=== PATIENT | male | born 1960 | race Caucasian/White ===

== ENCOUNTER 2021-02-08 15:29 | Emergency (ER) | payer MEDICARE ==
[2021-02-08] MEDS ORDERED: solu-MEDROL 125 MG IV ONE (15:40)
[2021-02-08] MEDS ORDERED: Lasix 40 MG/4 ML IV ONE (15:40)
[2021-02-08] MEDS ORDERED: solu-MEDROL 125 MG ONE (15:47)
[2021-02-08] MEDS ORDERED: Lasix 40 MG/4 ML ONE (15:47)
[2021-02-08 15:51] LABS: A-aADO2 183; ABG HEMOGLOBIN 10.7; ABG POTASSIUM 4.9 (3.5-5.1); ABG SITE RIGHT BRACHIAL; ALLEN TEST OK? YES; ARTERIAL BLD GAS O2 SATURATION 94.4 % (95-100); ARTERIAL BLOOD GAS BASE EXCESS 3.1 (-2.0-2.0); ARTERIAL BLOOD GAS FIO2 44 %; ARTERIAL BLOOD GAS PCO2 51 mmHg (35-45); ARTERIAL BLOOD GAS PO2 67 mmHg (75-100); ARTERIAL BLOOD GAS pH 7.37 (7.35-7.45); CARBOXYHEMOGLOBIN 2.5 % THgb (0.0-6.9); HCO3- 29.5 (22-28); HGB O2 SAT 90.8 g/dF (94-100); Lactic Acid 0.9 (0.4-2.0); Methhemoglobin 1.4 % (1.4-1.5)
--- NOTE | 2021-02-08 16:02 | ERPHSYRPT ---
- History of Present Illness Time Seen by Provider: 02/08/21 15:35 Source: patient Exam Limitations: no limitations Patient Subjective Stated Complaint: pt reports shortness of breath for one week. states he was sent over from Dr Rodríguez office with a sat of 82% on RA. reports intermittent cough with thick yellow sputum. also reports cold chills but did not check his temp. Triage Nursing Assessment: pt is aox3, pupils perrl, pt short of breath at rest, pt able to speak 1-2 words at a time, tachypneic, pt lung sounds are diminished bilat, cap refill < 3 seconds, radial pulses strong and equal, intermittent cough noted upon exam, pt skin pale warm dry. pt with edema to BLE with compression garments in place. Physician History: This is a morbidly obese 60-year-old white male who is taking Lasix for CHF, is diabetic, and sees Dr. Perez for renal insufficiency issues and presented to Dr. Rodríguez office today for worsening shortness of breath and coughing up of thick yellowish sputum. There, he was found to have a room air oxygenation level of 83%. Patient does not use supplemental oxygen. However, he did use oxygen briefly approximately a year ago when he was diagnosed with COVID-19 infection. Patient denies chest pain. He has not had fevers but has had intermittent chills in the last week. His shortness of breath is even at rest. He speaking to us in only a few words sentences. Patient does not see a strategic communications specialist or naval designer. Timing/Duration: week(s) (one) Activities at Onset: activity Severity of Dyspnea-Max: moderate Severity of Dyspnea-Current: moderate Possible Cause: occasional episodes Modifying Factors: Improves With: activity, coughing Associated Symptoms: cough, ankle swelling, chills, leg swelling, No chest pain/discomfort, No fever Allergies/Adverse Reactions: No Known Drug Allergies Allergy (Unverified 02/08/21 15:53) Home Medications: Albuterol 8 gm Mdi Hfa [Ventolin Hfa MDI] 90 mcg IH Q4HPRN PRN 02/08/21 [History] Fluticasone Propionate [24 Hour Allergy] 9.9 ml NS BID 02/08/21 [History] Furosemide 80 mg PO TID 02/08/21 [History] Glipizide 10 mg PO BID 02/08/21 [History] Insulin Aspart Prot/Insuln Asp [Novolog Mix 70-30 Flexpen] 30 units SQ BID 02/08/21 [History] Insulin Detemir [Levemir] 60 units SQ BID 02/08/21 [History] Metformin HCl [Glucophage] 1,000 mg PO BID 02/08/21 [History] Simvastatin 80 mg PO DAILY 02/08/21 [History] Sitagliptin Phosphate 50 MG [Januvia 50 MG] 50 mg PO DAILY 02/08/21 [History] Spironolactone 25 mg [Aldactone 25 MG] 25 mg PO UD 02/08/21 [History] Tamsulosin HCl 0.4 mg [Flomax 0.4 MG] 0.4 mg PO HS 02/08/21 [History] Testosterone Cypionate 2 ml IM UD 02/08/21 [History] Verapamil HCl [Verapamil ER] 240 mg PO DAILY 02/08/21 [History] Hx Tetanus, Diphtheria Vaccination/Date Given: Yes Hx Influenza Vaccination/Date Given: Yes Hx Pneumococcal Vaccination/Date Given: No Immunizations Up to Date: Yes Travel Risk - International Travel Have you traveled outside of the country in past 3 weeks: No - Coronavirus Screening Symptoms: Shortness of Breath Close contact with a COVID-19 positive Pt in past 14-21 Days: No - Review of Systems Constitutional: Chills (Intermittently over the last week) Eyes: No Symptoms Ears, Nose, & Throat: No Symptoms Respiratory: Cough, Dyspnea on Exertion (JUNIOR) Cardiac: No Symptoms Abdominal/Gastrointestinal: No Symptoms Genitourinary Symptoms: No Symptoms Musculoskeletal: No Symptoms Skin: No Symptoms Neurological: No Symptoms Psychological: No Symptoms Endocrine: No Symptoms Hematologic/Lymphatic: No Symptoms Immunological/Allergic: No Symptoms All Other Systems: Reviewed and Negative - Past Medical History Neurological History: No Pertinent History Cardiac History: No Pertinent History Respiratory History: No Pertinent History Endocrine Medical History: Diabetes Type II Musculoskeletal History: Osteoarthritis Other Medical History: CHARCOT-HIPOLITO TOOTH; TYPE II IDDM - Past Surgical History Past Surgical History: Yes Musculoskeletal: Other Other Surgical History: foot ulcer operated on "years" ago - Social History Smoking Status: Former smoker Exposure to second hand smoke: No Patient Lives Alone: No - Nursing Vital Signs Nursing Vital Signs: Initial Vital Signs Temperature 97.5 F 02/08/21 15:30 Pulse Rate 87 02/08/21 15:30 Respiratory Rate 30 H 02/08/21 15:30 Blood Pressure 154/93 02/08/21 15:30 O2 Sat by Pulse Oximetry 77 L 02/08/21 15:30 Pain Scale Pain Intensity 0 - Physical Exam General Appearance: mild distress, alert, anxiety, obese Eye Exam: PERRL/EOMI, eyes nml inspection Ears, Nose, Throat Exam: hearing grossly normal, normal ENT inspection, normal pharynx Neck Exam: normal inspection, non-tender, supple, full range of motion Respiratory Exam: respiratory distress (Mild to moderate), airway intact, crackles/rales, No chest tenderness Cardiovascular/Chest Exam: normal heart sounds, regular rate/rhythm, normal peripheral pulses Abdominal/Gastrointestinal Exam: soft, normal bowel sounds, No tenderness Rectal Exam: not done Extremity Exam: normal range of motion, pedal edema (Her lower extremities with obvious signs of chronic venous stasis disease. Patient has bilateral lower extremity ABDELRAHMAN hose in place) Neurologic Exam: alert, oriented x 3, cooperative, compliance professional II-XII nml as tested, normal mood/affect, nml cerebellar function, nml station & gait Skin Exam: warm, dry, other (Chronic venous stasis pigmentation bilateral lower extremities below the knees) Lymphatic Exam: No adenopathy SpO2 Interpretation: hypoxic SpO2: 77 O2 Delivery: Room Air - Course Nursing assessment & vital signs reviewed: Yes EKG Interpreted by Me: RATE (94), Sinus Rhythm, NORMAL AXIS, NORMAL INTERVALS, NORMAL QRS, Non-specific ST Changes, Other (No acute ischemic changes on today's EKG. No comparison EKG available at this time.) Ordered Tests: Active Orders 24 hr Category Date Time Status EKG-ER Only STAT Care 02/08/21 15:40 Active IV Insertion STAT Care 02/08/21 15:40 Active Oxygen-ED Only Nasal Cannula 6 lpm Care 02/08/21 16:39 Active Pulse Oximetry (ED) STAT Care 02/08/21 15:40 Active CHEST 1 VIEW (PORTABLE) Stat Exams 02/08/21 15:41 Completed ARTERIAL BLOOD GASES Stat Lab 02/08/21 15:40 Completed BLOOD CULTURE Stat Lab 02/08/21 16:34 Received CBC W DIFF Stat Lab 02/08/21 15:40 Completed CMP Stat Lab 02/08/21 15:40 Completed CULTURE,SPUTUM Stat Lab 02/08/21 15:41 Ordered D-DIMER QUANTITATIVE Stat Lab 02/08/21 15:40 Completed INFLUENZA A+B RUT Stat Lab 02/08/21 15:41 Completed Lactic Acid Stat Lab 02/08/21 15:40 Completed MAGNESIUM Stat Lab 02/08/21 15:40 Completed Manual Differential NC Stat Lab 02/08/21 15:40 Completed NT PRO BNP Stat Lab 02/08/21 15:40 Completed PROTIME WITH INR Stat Lab 02/08/21 15:40 Completed TROPONIN Q3H Lab 02/08/21 17:00 Completed TROPONIN Q3H Lab 02/08/21 20:00 Ordered TROPONIN Q3H Lab 02/08/21 23:00 Ordered TROPONIN Q3H Lab 02/09/21 02:00 Ordered TROPONIN Q3H Lab 02/09/21 05:00 Ordered Respiratory MDI UD RT 02/08/21 16:49 Active Respiratory Therapy Assessment DAILY RT 02/08/21 16:46 Active Medication Summary Generic Name Dose Route Start Last Admin Trade Name Freq PRN Reason Stop Dose Admin Albuterol Sulfate 4 puff 02/08/21 16:24 02/08/21 16:46 Ventolin Common Canister IH 4 puff Q4H PRN PRN Administration SHORTNESS OF BREATH/WHEEZING Discontinued Medications Generic Name Dose Route Start Last Admin Trade Name Freq PRN Reason Stop Dose Admin Enoxaparin Sodium 120 mg 02/08/21 17:14 02/08/21 17:21 Enoxaparin Sodium SQ 02/08/21 17:15 120 mg STAT STA Administration Enoxaparin Sodium Confirm 02/08/21 17:20 Enoxaparin Sodium Administered 02/08/21 17:21 Dose 120 mg SQ .STK-MED ONE Furosemide 40 mg 02/08/21 15:40 02/08/21 15:49 Lasix 40 Mg/4 Ml IV 02/08/21 15:41 40 mg STAT ONE Administration Furosemide Confirm 02/08/21 15:47 Lasix 40 Mg/4 Ml Administered 02/08/21 15:48 Dose 40 mg .ROUTE .STK-MED ONE Ceftriaxone Sodium/Dextrose 1 g in 50 mls @ 100 mls/hr 02/08/21 16:48 02/08/21 17:22 Rocephin 1 Gm-D5w 50 Ml Bag IV 02/08/21 17:17 100 ml/hr STAT STA 100 mls/hr Administration Ceftriaxone Sodium/Dextrose Confirm 02/08/21 16:53 Rocephin 1 Gm-D5w 50 Ml Bag Administered 02/08/21 16:54 Dose 1 g in 50 mls @ ud IV .STK-MED ONE Methylprednisolone Sodium Succinate 125 mg 02/08/21 15:40 02/08/21 15:49 Solu-Medrol 125 Mg IV 02/08/21 15:41 125 mg STAT ONE Administration Methylprednisolone Sodium Succinate Confirm 02/08/21 15:47 Solu-Medrol 125 Mg Administered 02/08/21 15:48 Dose 125 mg .ROUTE .STK-MED ONE Lab/Rad Data: Laboratory Result Diagrams 02/08/21 15:40 02/08/21 15:40 Laboratory Results 02/08/21 02/08/21 02/08/21 Range/Units 17:00 15:41 15:40 WBC (4.0-10.5) K/mm3 RBC (4.1-5.6) M/mm3 Hgb (12.5-18.0) gm/dl Hct (42-50) % MCV (78-100) fl MCH (26-32) pg MCHC (32-36) g/dl RDW (11.5-14.0) % Plt Count (150-450) K/mm3 MPV (7.5-11.0) fl PT 12.9 H (8.83-12.87) SECONDS INR 1.14 (0.8-3.0) D-Dimer 1441 H* (215-500) ng/mL Puncture Site pCO2 (35-45) mmHg pO2 (75-100) mmHg Base Excess (-2.0-2.0) O2 Saturation (94-100) g/dF ABG pH (7.35-7.45) ABG HCO3 (22-28) ABG O2 Sat (Measured) (95-100) % Remy Test A-a Gradient a/A Ratio Hemoglobin Carboxyhemoglobin (0.0-6.9) % THgb Methemoglobin (1.4-1.5) % Potassium (3.5-5.1) Temperature C POC O2 Flow Rate % Sodium (137-145) mmol/L Chloride (98-107) mmol/L Carbon Dioxide (22-30) mmol/L Anion Gap (5-15) MEQ/L BUN (9-20) mg/dL Creatinine (0.66-1.25) mg/dL Estimated GFR ML/MIN Glucose (74-106) mg/dL Lactic Acid (0.4-2.0) Calcium (8.4-10.2) mg/dL Magnesium (1.6-2.3) mg/dL Total Bilirubin (0.2-1.3) mg/dL AST (17-59) U/L ALT (0-50) U/L Alkaline Phosphatase (38-126) U/L Troponin I 0.046 H* (0.000-0.034) ng/mL NT-Pro-B Natriuret Pep (0-900) pg/mL Serum Total Protein (6.3-8.2) g/dL Albumin (3.5-5.0) g/dL Influenza Type A Ag NEGATIVE (NEGATIVE) Influenza Type B Ag NEGATIVE (NEGATIVE) 02/08/21 02/08/21 02/08/21 Range/Units 15:40 15:40 15:40 WBC 8.6 (4.0-10.5) K/mm3 RBC 3.84 L (4.1-5.6) M/mm3 Hgb 10.7 L (12.5-18.0) gm/dl Hct 34.9 L (42-50) % MCV 90.9 (78-100) fl MCH 27.9 (26-32) pg MCHC 30.7 L (32-36) g/dl RDW 15.5 H (11.5-14.0) % Plt Count 295 (150-450) K/mm3 MPV 10.5 (7.5-11.0) fl PT (8.83-12.87) SECONDS INR (0.8-3.0) D-Dimer (215-500) ng/mL Puncture Site RIGHT BRACHIAL pCO2 51 H (35-45) mmHg pO2 67 L (75-100) mmHg Base Excess 3.1 H (-2.0-2.0) O2 Saturation 90.8 L (94-100) g/dF ABG pH 7.37 (7.35-7.45) ABG HCO3 29.5 H* (22-28) ABG O2 Sat (Measured) 94.4 L (95-100) % Remy Test YES A-a Gradient 183 a/A Ratio 0.27 Hemoglobin 10.7 Carboxyhemoglobin 2.5 (0.0-6.9) % THgb Methemoglobin 1.4 (1.4-1.5) % Potassium 4.7 4.9 (3.5-5.1) Temperature 37.0 C POC O2 Flow Rate 44 % Sodium 134 L (137-145) mmol/L Chloride 90 L (98-107) mmol/L Carbon Dioxide 30 (22-30) mmol/L Anion Gap 17.9 H (5-15) MEQ/L BUN 90 H (9-20) mg/dL Creatinine 2.52 H (0.66-1.25) mg/dL Estimated GFR 27.9 ML/MIN Glucose 147 H (74-106) mg/dL Lactic Acid 0.9 (0.4-2.0) Calcium 8.9 (8.4-10.2) mg/dL Magnesium 2.5 H (1.6-2.3) mg/dL Total Bilirubin 0.30 (0.2-1.3) mg/dL AST 36 (17-59) U/L ALT 30 (0-50) U/L Alkaline Phosphatase 84 (38-126) U/L Troponin I (0.000-0.034) ng/mL NT-Pro-B Natriuret Pep 607 (0-900) pg/mL Serum Total Protein 8.2 (6.3-8.2) g/dL Albumin 4.2 (3.5-5.0) g/dL Influenza Type A Ag (NEGATIVE) Influenza Type B Ag (NEGATIVE) - Progress Progress: improved, re-examined Air Movement: fair Progress Note: 02/08/21 17:13 Chest x-ray reveals new diffuse airspace disease left greater than right with a small left pleural effusion. 02/08/21 17:57 Medical decision making: This patient has acute kidney insufficiency/failure that is worsening in the last 7 days. He appears to have left-sided airspace disease with pleural effusion present. His D-dimer is elevated as is his troponin and this may be secondary to his worsening kidney function. He was hypoxic as well. I spoke with his basket bottom machine operator, Dr. Perez. We both agree that this patient should be transferred to a facility where he can be evaluated and managed by nephrology, cardiology and pulmonology. I also spoke with [facility] emergency department physician Dr. Contreras and reviewed the patient's work-up results. He accepts the patient in transfer. Blood Culture(s) Obtained: Yes Antibiotics given: Yes Counseled pt/family regarding: lab results, diagnosis, need for follow-up, rad results - Departure Departure Disposition: Transfer Clinical Impression: Acute on chronic renal insufficiency, Hypoxia, Pneumonia, Elevated troponin, Elevated d-dimer Condition: Fair Critical Care Time: Yes Critical Care Time(excluding separately billable procedures): Critical 30-74 mins Referrals: CORINNA SOSA [Primary Care Provider] -
[2021-02-08 16:21] LABS: ALBUMIN 4.2 g/dL (3.5-5.0); ANION GAP 17.9 MEQ/L (5-15); BILIRUBIN,TOTAL 0.3 mg/dL (0.2-1.3); Calcium 8.9 mg/dL (8.4-10.2); Creatinine 1 2.52 mg/dL (0.66-1.25); EST GLOMERULAR FILTRATION RATE 27.9 ML/MIN; MAGNESIUM 2.5 mg/dL (1.6-2.3); Potassium 4.7 mmol/L (3.5-5.1); Total Protein 8.2 g/dL (6.3-8.2)
[2021-02-08 16:22] LABS: INR 1.14 (0.8-3.0); PROTIME 12.9 SECONDS (8.83-12.87)
[2021-02-08] MEDS ORDERED: VENTOLIN COMMON CANISTER IH PRN (16:24)
[2021-02-08 16:25] LABS: INFLUENZA A NEGATIVE (NEGATIVE); INFLUENZA B NEGATIVE (NEGATIVE)
--- NOTE | 2021-02-08 16:35 | XRAY ---
Indication: Cough and hypoxia. Comparison: None Portable chest demonstrates new diffuse airspace disease, left greater than right with small left effusion. Heart is not enlarged. Bony thorax intact.
[2021-02-08] MEDS ORDERED: ROCEPHIN 1 Gm-D5w 50 ml Bag** 1 G/50 ML IVPB IV STA (16:48)
[2021-02-08] MEDS ORDERED: ROCEPHIN 1 Gm-D5w 50 ml Bag** 1 G/50 ML IVPB IV ONE (16:53)
[2021-02-08] MEDS ORDERED: ENOXAPARIN SODIUM SQ STA (17:14)
[2021-02-08 17:16] LABS: Hematocrit 34.9 % (42-50); Hemoglobin 10.7 gm/dl (12.5-18.0); Mean Cell Volume 90.9 fl (78-100); Mean Corpuscular Hemoglobin 27.9 pg (26-32); Mean Corpuscular Hgb Concent. 30.7 g/dl (32-36); Mean Platelet Volume 10.5 fl (7.5-11.0); Platelet Count 295 K/mm3 (150-450); Red Blood Count 3.84 M/mm3 (4.1-5.6); Red Cell Distribution Width 15.5 % (11.5-14.0); White Blood Count 8.6 K/mm3 (4.0-10.5)
[2021-02-08] MEDS ORDERED: ENOXAPARIN SODIUM SQ ONE (17:20)
[2021-02-08 17:34] VITALS: BP 158/118
[2021-02-08] MEDS ORDERED: Zithromax 500 MG/ 250 ML NaCl Premix 500 MG/250 ML IVPB IV STA (17:55)
[2021-02-08] MEDS ORDERED: Zithromax 500 MG/ 250 ML NaCl Premix 500 MG/250 ML IVPB IV ONE (18:01)
[2021-02-08 18:05] VITALS: PULSE 88; O2SAT 94
[2021-02-08 21:02] LABS: BAND 3 % (0.0-2.0); Eosinophil 1 % (0.00-3.0); Lymphocytes 7 % (24-44); Monocyte 1 % (0.0-12.0); Neutrophils 88 % (36.-66.); Total Cells Counted 100
[2021-02-08 21:03] LABS: Platelet Estimate NORMAL (NORMAL)
== END 2021-02-08 18:20 | disposition short-term general hospital (02) ==
LOC: ED 15:29
DX: N18.9 Chronic kidney disease, unspecified (principal); E11.9 Type 2 diabetes mellitus without complications; Z79.899 Other long term (current) drug therapy; I50.9 Heart failure, unspecified
CPT/HCPCS: 36000; 36415; 36600; 71045; 80053; 82375; 82803; 83605; 83735; 83880; 84484; 85025; 85379; 85610; 87040; 87400; 93005; 94640; 94760; 96365; 96372; 96374; 96375; 99285; 99291; J0456; J0696; J1650; J1940; J2930; A9270-GY

== ENCOUNTER 2021-08-22 11:32 | Emergency (ER) | payer MEDICARE ==
[2021-08-22] MEDS ORDERED: NORCO 5/325 MG PO ONE (11:53)
[2021-08-22] MEDS ORDERED: NORCO 5/325 MG ONE (12:01)
[2021-08-22 13:06] VITALS: BP 146/82; PULSE 84; O2SAT 95
--- NOTE | 2021-08-22 13:11 | ERPHSYRPT ---
- History of Present Illness Time Seen by Provider: 08/22/21 11:38 Source: patient Exam Limitations: no limitations Patient Subjective Stated Complaint: right arm pain Triage Nursing Assessment: Patient wheeled back to ED per motorized scooter and requested to stay in scooter. Patient A+O X3. Patient's skin pink, warm and dry. Patient complains of right lower arm pain 4/10 when at rest 8/10 when moving it. Patient denies injury but states right lower arm started hurting 3 days ago. No visible injuries noted. Physician History: 61-year-old male with multiple medical problems including diabetes mellitus, hypertension, hyperlipidemia, chronic joint pains, wheelchair-bound presented in the ER with chief complaint of right forearm pain since morning without any known trauma or fall. Patient reports moderate intensity sharp pain with movements of right wrist/elbow and the forearm area and partial relief with being still. Did not notice any swelling of forearm. Does have decreased strength in both upper and lower extremities from his chronic issues and did not notice any worsening. Allergies/Adverse Reactions: No Known Drug Allergies Allergy (Verified 08/22/21 11:37) Home Medications: Albuterol 8 gm Mdi Hfa [Ventolin Hfa MDI] 90 mcg IH Q4HPRN PRN 02/08/21 [History] Fluticasone Propionate [24 Hour Allergy] 9.9 ml NS BID 02/08/21 [History] Furosemide 80 mg PO TID 02/08/21 [History] Glipizide 10 mg PO BID 02/08/21 [History] Insulin Aspart Prot/Insuln Asp [Novolog Mix 70-30 Flexpen] 30 units SQ BID 02/08/21 [History] Insulin Detemir [Levemir] 60 units SQ BID 02/08/21 [History] Metformin HCl [Glucophage] 1,000 mg PO BID 02/08/21 [History] Simvastatin 80 mg PO DAILY 02/08/21 [History] Sitagliptin Phosphate 50 MG [Januvia 50 MG] 50 mg PO DAILY 02/08/21 [History] Spironolactone 25 mg [Aldactone 25 MG] 25 mg PO UD 02/08/21 [History] Tamsulosin HCl 0.4 mg [Flomax 0.4 MG] 0.4 mg PO HS 02/08/21 [History] Testosterone Cypionate 2 ml IM UD 02/08/21 [History] Verapamil HCl [Verapamil ER] 240 mg PO DAILY 02/08/21 [History] Hx Tetanus, Diphtheria Vaccination/Date Given: Yes Hx Influenza Vaccination/Date Given: Yes Hx Pneumococcal Vaccination/Date Given: No Immunizations Up to Date: Yes Travel Risk - International Travel Have you traveled outside of the country in past 3 weeks: No - Coronavirus Screening Are you exhibiting any of the following symptoms?: No Close contact with a COVID-19 positive Pt in past 14-21 Days: No - Vaccine Status Have you recieved a Covid-19 vaccination: Yes Tool Checker: Moderna - Vaccination Dates Date of 2cond Vaccination (if applicable): March 2021 - Review of Systems Constitutional: No Symptoms Eyes: No Symptoms Ears, Nose, & Throat: No Symptoms Respiratory: No Symptoms Cardiac: No Symptoms Abdominal/Gastrointestinal: No Symptoms Musculoskeletal: Arthralgias, Myalgias Skin: No Symptoms Neurological: No Symptoms Psychological: No Symptoms - Past Medical History Neurological History: Peripheral Neuropathy, Other Cardiac History: Congestive Heart Failure, Hypertension Respiratory History: No Pertinent History Endocrine Medical History: Diabetes Type II Musculoskeletal History: Osteoarthritis Other Medical History: CHARCOT-HIPOLITO TOOTH, KIDNEY PROBLEMS - Past Surgical History Past Surgical History: Yes Musculoskeletal: Other Other Surgical History: foot ulcer operated on "years" ago - Social History Smoking Status: Former smoker Exposure to second hand smoke: No Drug Use: none Patient Lives Alone: No - Nursing Vital Signs Nursing Vital Signs: Initial Vital Signs Temperature 96.5 F 08/22/21 11:37 Pain Scale Pain Intensity 5 - Physical Exam General Appearance: no apparent distress Eyes, Ears, Nose, Throat Exam: normal ENT inspection Neck Exam: normal inspection, full range of motion Cardiovascular/Respiratory Exam: normal breath sounds, regular rate/rhythm Back Exam: normal inspection Shoulder Exam: normal inspection, non-tender, no evidence of injury Elbow/Forearm Exam: normal inspection, no evidence of injury, normal ROM, soft tissue tenderness (Forearm right) Wrist Exam: normal inspection, non-tender, no evidence of injury Hand Exam: normal inspection, non-tender, no evidence of injury Neuro/Tendon Exam: normal sensation Mental Status Exam: alert, oriented x 3, cooperative Skin Exam: normal color SpO2 Interpretation: normal SpO2: 95 O2 Delivery: Room Air Ordered Tests: Active Orders 24 hr Category Date Time Status [facility]rain [facility] STAT Care 08/22/21 13:04 Completed Sling Application STAT Care 08/22/21 13:05 Completed ELBOW (MINIMUM 3 VIEWS) Stat Exams 08/22/21 12:34 Taken WRIST (MIN 3 VIEWS) Stat Exams 08/22/21 12:34 Taken Medication Summary Discontinued Medications Generic Name Dose Route Start Last Admin Trade Name Freq PRN Reason Stop Dose Admin Hydrocodone Bitart/Acetaminophen 1 tab 08/22/21 11:53 08/22/21 12:03 [place] 5/325 Mg PO 08/22/21 11:54 1 tab STAT ONE Administration - Progress Progress: improved Progress Note: 08/22/21 13:07 Does not have any fracture dislocation x-rays reviewed by me in the wrist and elbow. Muscular tenderness. Chronic weakness., Recommended sling and pain medications, outpatient Ortho follow-up. Counseled pt/family regarding: diagnosis, need for follow-up, rad results - Departure Departure Disposition: Home Clinical Impression: Right forearm pain Condition: Stable Critical Care Time: No Referrals: CORINNA SOSA [Primary Care Provider] - Follow Up with PCP/3 days ORTHO - LOLLY HODGES NP [NON-STAFF PHY W/O PRIVILEGES] - (call tomorrow for re evaluation) Instructions: Overuse Injuries (DC) Additional Instructions: take pain meds as needed, follow up with orthopedic surgery for re evaluation,. return to ER for worsening Prescriptions: Hydrocodone/APAP 5/325 [[place] 5/325 mg] 1 each PO Q6H PRN PRN #10 tablet MDD 3 PRN Reason: Pain
--- NOTE | 2021-08-22 19:38 | XRAY ---
Indication: Pain 2 days. Comparison: None 3 view left elbow negative for acute fracture, dislocation, or suspicious bony lesions. Soft tissues unremarkable.
--- NOTE | 2021-08-22 19:39 | XRAY ---
Indication: Pain 2 days. Comparison: None 3 view right wrist demonstrates old 5th metacarpal fracture and faint radial/ulnar artery calcifications. No other bony, articular, or soft tissue abnormalities.
== END 2021-08-22 13:16 | disposition home or self-care (01) ==
LOC: ED 11:32
DX: M79.631 Pain in right forearm (principal); E11.9 Type 2 diabetes mellitus without complications; I10 Essential (primary) hypertension; E78.5 Hyperlipidemia, unspecified; Z79.899 Other long term (current) drug therapy; M79.18 Myalgia, other site; I50.9 Heart failure, unspecified
CPT/HCPCS: 73080; 73110; 99284; A9270-GY

== ENCOUNTER 2022-11-21 14:05 | Observation (INO) | payer MEDICARE ==
[2022-11-21 15:15] LABS: INFLUENZA A NEGATIVE (NEGATIVE); INFLUENZA B NEGATIVE (NEGATIVE); RESPIRATORY SYNCTIAL VIRUS NEGATIVE (Negative); SARS-CoV-2 Xpert Express NEGATIVE (NEGATIVE)
[2022-11-21] MEDS ORDERED: Ventolin Hfa MDI IH PRN (16:43)
[2022-11-21 16:53] LABS: Hematocrit 35.5 % (42-50); Hemoglobin 10.5 g/dL (12.5-18.0); Mean Cell Volume 91.7 fL (78-100); Mean Corpuscular Hemoglobin 27.1 pg (26-32); Mean Corpuscular Hgb Concent. 29.6 g/dL (32-36); Mean Platelet Volume 9.4 fL (7.5-11.0); Platelet Count 326 x10^3/uL (150-450); Red Blood Count 3.87 x10^6/uL (4.1-5.6); Red Cell Distribution Width 15.6 % (11.5-14.0); White Blood Count 10.1 x10^3/uL (4.0-10.5)
[2022-11-21] MEDS ORDERED: VENTOLIN COMMON CANISTER IH PRN (17:06)
[2022-11-21] MEDS ORDERED: PHARMACY DOSING REQUEST MC ONE (17:28)
[2022-11-21] MEDS ORDERED: PHARMACY DOSING REQUIRED: VANCOMYCIN IV STA (17:28)
[2022-11-21] MEDS ORDERED: Glucotrol 5 MG PO ONE (17:30)
[2022-11-21 18:04] LABS: ANION GAP 16.9 MEQ/L (5-15); Calcium 8.7 mg/dL (8.4-10.2); Creatinine 1 2.48 mg/dL (0.66-1.25); EST GLOMERULAR FILTRATION RATE 28.2 ML/MIN; PREALBUMIN 24.41 mg/dL (17.6-36.0); Potassium 5.5 mmol/L (3.5-5.1)
[2022-11-21] MEDS ORDERED: IMODIUM 2 MG PO ONE (20:25)
--- NOTE | 2022-11-21 20:27 | PCM.BN ---
Brief Admission Note - Admission Note Brief Admisson Note: Patient of Dr Luevano admitted @ 11/21/22 14:05 to MED SURG. Medication List reviewed and reconciled.Patient is admitted by Director Of Occupational Health,Dr Duong ,for treatment of left diabetic foot ulcer .
[2022-11-21] MEDS: HUMALOG SQ PRN (21:22)
[2022-11-21] MEDS: Flomax 0.4 MG PO SCH (21:23)
[2022-11-21] MEDS: Glucophage 500 MG PO SCH (21:39)
[2022-11-21] MEDS ORDERED: Flonase NASAL NS PRN (21:40)
[2022-11-21] MEDS ORDERED: NON-FORMULARY ITEM (Furosemide [Furosemide] 80 MG Tablet) PO SCH (22:00)
[2022-11-21] MEDS ORDERED: VANCOMYCIN 1 GRAM/200 ML BAG 1 GM/200 ML PIGGYBACK IV SCH (22:00)
[2022-11-21] MEDS ORDERED: NON-FORMULARY ITEM (Metformin Hcl [Glucophage] 1,000 MG Tablet) PO SCH (22:00)
[2022-11-21] MEDS ORDERED: Lasix 40 MG PO ONE (22:00)
[2022-11-21] MEDS ORDERED: NON-FORMULARY ITEM (Glipizide [Glipizide] 10 MG Tablet) PO SCH (22:00)
[2022-11-21] MEDS ORDERED: Flonase NASAL NS SCH (22:00)
[2022-11-21] MEDS ORDERED: [UNRECOGNIZED DRUG - REMARK] NS SCH (22:00)
[2022-11-21] MEDS ORDERED: Piperacillin/Tazobactam 2.25 GM IV ONE (22:16)
[2022-11-21] MEDS ORDERED: Sodium Chloride 100ML MINI-BAG PLUS 100 ML IV ONE (22:17)
[2022-11-21] MEDS: Piperacillin/Tazobactam 2.25 GM 2.25 GM in Sodium Chloride 100ML MINI-BAG PLUS 100 ML IV SCH (23:55)
[2022-11-22] MEDS: Piperacillin/Tazobactam 2.25 GM 2.25 GM in Sodium Chloride 100ML MINI-BAG PLUS 100 ML IV SCH ×4 (00:19→17:59)
[2022-11-22] MEDS ORDERED: Piperacillin/Tazobactam 2.25 GM IV ONE (04:42)
[2022-11-22] MEDS ORDERED: Sodium Chloride 100ML MINI-BAG PLUS 100 ML IV ONE (04:42)
[2022-11-22 06:52] LABS: INR 1.09 (0.8-3.0); PROTIME 11.5 SECONDS (9.4-12.5); PTT 30.5 SECONDS (25.1-36.5)
[2022-11-22 06:53] LABS: ALBUMIN 3.7 g/dL (3.5-5.0); ANION GAP 14.1 MEQ/L (5-15); BILIRUBIN,TOTAL 0.3 mg/dL (0.2-1.3); Calcium 8.5 mg/dL (8.4-10.2); Creatinine 1 2.61 mg/dL (0.66-1.25); EST GLOMERULAR FILTRATION RATE 26.6 ML/MIN; Potassium 5.3 mmol/L (3.5-5.1); Total Protein 7.2 g/dL (6.3-8.2)
[2022-11-22 07:10] LABS: Absolute Neutrophil Ct (ANC) 7.31 x10^3/uL (1.4-6.9); Basophil (Absolute #) 0.06 x10^3/uL (0-0.4); Eosinophil % 3.8 % (0.00-5.0); Eosinophil (Absolute #) 0.34 x10^3/uL (0-0.5); Hematocrit 31.2 % (42-50); Hemoglobin 9.1 g/dL (12.5-18.0); Lymphocyte (Absolute #) 0.75 x10^3/uL (1.0-4.6); Lymphocytes % 8.3 % (24.0-44.0); Mean Cell Volume 91.8 fL (78-100); Mean Corpuscular Hemoglobin 26.8 pg (26-32); Mean Corpuscular Hgb Concent. 29.2 g/dL (32-36); Mean Platelet Volume 9.8 fL (7.5-11.0); Monocyte (Absolute #) 0.51 x10^3/uL (0.0-1.3); Monocytes % 5.7 % (0.0-12.0); Neutrophil % 81.3 % (36.0-66.0); Platelet Count 332 x10^3/uL (150-450); Red Cell Distribution Width 15.6 % (11.5-14.0)
[2022-11-22] MEDS: Glucophage 500 MG PO SCH ×2 (07:29→14:58)
[2022-11-22] MEDS ORDERED: Lactated Ringers 1,000 ML IV SCH (08:00)
[2022-11-22] MEDS: Pepcid 20 MG PO SCH (09:12)
[2022-11-22] MEDS: Aldactone 25 MG PO SCH (09:12)
[2022-11-22] MEDS: ZOCOR 20MG PO SCH (09:12)
[2022-11-22] MEDS: Januvia 50 MG PO SCH (09:12)
[2022-11-22] MEDS: ISOPTIN SR PO SCH (09:12)
[2022-11-22] MEDS ORDERED: NON-FORMULARY ITEM (Simvastatin [Simvastatin] 80 MG Tablet) PO SCH (10:00)
[2022-11-22] MEDS ORDERED: Xylocaine 1% Vial 30 ML PF IJ ONE (12:11)
[2022-11-22] MEDS ORDERED: Sensorcaine 0.25% 10 ML ONE (12:11)
[2022-11-22] MEDS ORDERED: Marcaine Mpf 0.5% Vial 30 Ml ONE (12:15)
[2022-11-22] MEDS ORDERED: MOTRIN 600 MG PO PRN (14:48)
[2022-11-22] MEDS: Ecotrin 325 MG PO SCH (14:58)
[2022-11-22] MEDS: Glucotrol 5 MG PO SCH (14:58)
[2022-11-22] MEDS: Lasix 40 MG PO SCH ×2 (14:58→22:27)
[2022-11-22] MEDS: NORCO 5/325 MG PO PRN (16:01)
[2022-11-22] MEDS: HUMALOG SQ PRN ×2 (16:40→22:27)
[2022-11-22] MEDS: Cyclobenzaprine 10 MG PO PRN (16:40)
[2022-11-22] MEDS: Flomax 0.4 MG PO SCH (22:27)
[2022-11-22] MEDS: MELATONIN PO SCH (22:27)
[2022-11-22] MEDS: VANCOMYCIN 1.25 GM/250 ML BAG 1.25 GM/250 ML PIGGYBACK IV SCH (22:28)
[2022-11-23] MEDS: Piperacillin/Tazobactam 2.25 GM 2.25 GM in Sodium Chloride 100ML MINI-BAG PLUS 100 ML IV SCH ×4 (00:25→17:08)
[2022-11-23] MEDS: NORCO 5/325 MG PO PRN ×2 (00:36→21:42)
[2022-11-23 05:03] LABS: Absolute Neutrophil Ct (ANC) 7.13 x10^3/uL (1.4-6.9); Basophil (Absolute #) 0.04 x10^3/uL (0-0.4); Eosinophil % 3.8 % (0.00-5.0); Eosinophil (Absolute #) 0.34 x10^3/uL (0-0.5); Hemoglobin 8.2 g/dL (12.5-18.0); Lymphocyte (Absolute #) 0.88 x10^3/uL (1.0-4.6); Lymphocytes % 9.8 % (24.0-44.0); Mean Cell Volume 91.2 fL (78-100); Mean Corpuscular Hemoglobin 26.7 pg (26-32); Mean Corpuscular Hgb Concent. 29.3 g/dL (32-36); Mean Platelet Volume 9.4 fL (7.5-11.0); Monocytes % 6.7 % (0.0-12.0); Platelet Count 267 x10^3/uL (150-450); Red Blood Count 3.07 x10^6/uL (4.1-5.6); Red Cell Distribution Width 15.9 % (11.5-14.0)
[2022-11-23] MEDS: Glucotrol 5 MG PO SCH ×2 (07:48→16:44)
[2022-11-23] MEDS: Glucophage 500 MG PO SCH ×2 (07:48→16:44)
[2022-11-23] MEDS: ISOPTIN SR PO SCH (08:36)
[2022-11-23] MEDS: Cyclobenzaprine 10 MG PO PRN ×2 (08:36→21:42)
[2022-11-23] MEDS: Pepcid 20 MG PO SCH (08:36)
[2022-11-23] MEDS: ZOCOR 20MG PO SCH (08:36)
[2022-11-23] MEDS: Lasix 40 MG PO SCH ×3 (08:36→21:24)
[2022-11-23] MEDS: Ecotrin 325 MG PO SCH (08:36)
[2022-11-23] MEDS: Januvia 50 MG PO SCH (08:37)
--- NOTE | 2022-11-23 08:57 | OP ---
SURGERY DATE/TIME: 11/22/2022 1338 PREOPERATIVE DIAGNOSES: 1) Diabetic foot ulcer secondary to diabetes mellitus type II. 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 4) Osteomyelitis of ankle and/or foot. POSTOPERATIVE DIAGNOSES: 1) Diabetic foot ulcer secondary to diabetes mellitus type II. 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 4) Osteomyelitis of ankle and/or foot. PROCEDURE: Incision and drainage to the level of bone with debridement right foot with open packing. SURGEON: Ad Richardson DPM. MARKET MAKER: None. ANESTHESIA: None. HEMOSTASIS: Pressure dressing. ESTIMATED BLOOD LOSS: Less than 10 cc. MATERIALS: None. INJECTABLES: None. INDICATION FOR SURGERY: Reji is a very pleasant 62-year-old male who came to my office yesterday with concerns of a new ulceration to the lateral aspect of the left heel. The patient indicates several weeks ago started off as a blister. However, the blister was not going away on its own and it started to become foul smelling and slightly painful to the patient despite the patient's neuropathy. The patient presented with significant malodorous wound with a significantly necrotic appearance to it as well as severely infected. Discussion with the patient in regards to treatment and the patient was admitted to the Med/Surg floor. At the time antibiotics were provided and the patient was planned for surgical intervention. The patient understands all risks, complications and benefits of surgical intervention including but not limited to infection, hematoma, seroma, possibility of delayed skin healing, nonskin healing. The intention of this procedure at this time is to eradicate the infection. Wound healing is of concern however it is to be a concern at a later date with that at this time we proceed with surgical intervention. DESCRIPTION OF PROCEDURE AND FINDINGS: The patient was brought into the OR and placed on the OR table in the supine position. At this time the left lower extremity was prepped and draped in the typical sterile fashion and lowered onto the surgical field. At this time, attention was directed to the lateral aspect of the calcaneus where the necrotic wound was excised and the wound was debrided utilizing a combination of rongeur, curettes, 15 blade and pickups. The level of the wound necrosis extended to the level of the calcaneus at the proximal posterior aspect of the wound site. However, it was covered by a significant amount of adipose tissue towards the anterior aspect of the wound itself. Following this, copious amounts of sterile saline were used to flush the site utilizing a pulse vac as well as 1 liter of Bactisure. Following this, a curette was utilized to remove any further devitalized tissue from the site this was once again flushed. A dressing consisting of Betadine, Adaptic, 4x4, Kerlix and DEAN were then applied to the patient's left foot. The patient was returned to the preoperative assessment area. Postoperative orders as indicated in the patients discharge chart.
--- NOTE | 2022-11-23 09:50 | PCM.CONS ---
Podiatry HPI - Consult Consulting Provider: ROBINSON NGUYEN DPM - HPI History of Present Illness: Reji is a very pleasant 62-year-old male with a positive history of Seznmns-Npprn-Plzrv with significant neuropathy. He does have a positive history of diabetes mellitus with an unknown A1c. Patient was referred from his wound care nurse Sam Josue who has been seeing a wound to his right lower extremity. Patient was very close to healed until he did demonstrated a new bullous blister to the left heel a couple of weeks ago. Patient indicates that there was a blister however it has become necrotic over the last several weeks and the smell is significant. Patient denies any constitutional symptoms of infection. He denies any other pedal complaints at this time.. Medications & Allergies Home Medications: Home Medication List Albuterol 8 gm Mdi Hfa [Ventolin Hfa MDI] 90 mcg IH Q4HPRN PRN 02/08/21 [History Confirmed 11/21/22] Fluticasone Propionate [24 Hour Allergy] 1 spray NS BIDPRN PRN 02/08/21 [History Confirmed 11/21/22] Furosemide 80 mg PO TID 02/08/21 [History Confirmed 11/21/22] Insulin Aspart Prot/Insuln Asp [Novolog Mix 70-30 Flexpen] 30 units SQ BID 02/08/21 [History Confirmed 11/21/22] Insulin Detemir [Levemir] 60 units SQ BID 02/08/21 [History Confirmed 11/21/22] Metformin HCl [Glucophage] 1,000 mg PO BID 02/08/21 [History Confirmed 11/21/22] Simvastatin 80 mg PO DAILY 02/08/21 [History Confirmed 11/21/22] Sitagliptin Phosphate 50 MG [Januvia 50 MG] 50 mg PO DAILY 02/08/21 [History Confirmed 11/21/22] Spironolactone 25 mg [Aldactone 25 MG] 25 mg PO UD 02/08/21 [History Confirmed 11/21/22] Tamsulosin HCl 0.4 mg [Flomax 0.4 MG] 0.4 mg PO HS 02/08/21 [History Confirmed 11/21/22] Testosterone Cypionate 2 ml IM UD 02/08/21 [History Confirmed 11/21/22] Verapamil HCl [Verapamil ER] 240 mg PO DAILY 02/08/21 [History Confirmed 11/21/22] glipiZIDE [Glipizide] 10 mg PO BID 02/08/21 [History Confirmed 11/21/22] Hydrocodone/APAP 5/325 [[place] 5/325 mg] 1 each PO Q6H PRN PRN #10 tablet MDD 3 08/22/21 [Rx Confirmed 11/21/22] Famotidine [Pepcid AC] 20 mg DAILY 11/21/22 [History Confirmed 11/21/22] Melatonin 10 mg PO HS 11/22/22 [History Confirmed 11/22/22] Allergies/Adverse Reactions: Allergies Allergy/AdvReac Type Severity Reaction Status Date / Time No Known Drug Allergies Allergy Verified 08/22/21 11:37 - Past Medical History Neurological History: Peripheral Neuropathy Cardiac History: No Pertinent History Respiratory History: No Pertinent History Endocrine Medical History: Diabetes Type I, Liver Disease Musculoskelatal History: Arthritis Comment: LIVER AND KIDNEY HEALTH ISSUES - Past Surgical History Past Surgical History: Yes Neuro Surgical History: No Pertinent History Cardiac History: No Pertinent History GI Surgical History: No Pertinent History Genitourinary Surgical Hx: No Pertinent History Musculskeletal Surgical Hx: No Pertinent History, Other Male Surgical History: No Pertinent History Other Surgical History: foot ulcer operated on "years" ago - Social History Smoking Status: Former smoker Exposure to second hand smoke: No Alcohol: None Drug Use: none Physical Exam - General General Appearance: no apparent distress, obese - Neuro Neurologic: Epicritic and protopathic (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 Weight bearing for transfers. Large wound to lateral calcaneus of the left foot with measurements as documented.Signficantly fibrotic and necrotic. Malodor.) - Narrative Narrative Physical Exam: Podiatry Physical Exam Results - Labs Lab/Micro Results: Lab Results-Last 24 Hours 11/22/22 11/22/22 11/22/22 Range/Units 11:30 16:36 21:06 WBC (4.0-10.5) x10^3/uL RBC (4.1-5.6) x10^6/uL Hgb (12.5-18.0) g/dL Hct (42-50) % MCV (78-100) fL MCH (26-32) pg MCHC (32-36) g/dL RDW (11.5-14.0) % Plt Count (150-450) x10^3/uL MPV (7.5-11.0) fL Gran % (36.0-66.0) % Immature Gran % (Auto) (0.00-0.4) % Nucleat RBC Rel Count (0.00-0.1) % Eos # (Auto) (0-0.5) x10^3/uL Immature Gran # (Auto) (0.00-0.03) x10^3u/L Absolute Lymphs (auto) (1.0-4.6) x10^3/uL Absolute Monos (auto) (0.0-1.3) x10^3/uL Absolute Nucleated RBC (0.00-0.01) x10^3u/L Lymphocytes % (24.0-44.0) % Monocytes % (0.0-12.0) % Eosinophils % (0.00-5.0) % Basophils % (0.0-0.4) % Absolute Granulocytes (1.4-6.9) x10^3/uL Basophils # (0-0.4) x10^3/uL POC Glucometer 136 H 310 H 200 H (74 to 106) mg/dL 11/23/22 11/23/22 Range/Units 04:30 07:20 WBC 9.0 (4.0-10.5) x10^3/uL RBC 3.07 L (4.1-5.6) x10^6/uL Hgb 8.2 L (12.5-18.0) g/dL Hct 28.0 L (42-50) % MCV 91.2 (78-100) fL MCH 26.7 (26-32) pg MCHC 29.3 L (32-36) g/dL RDW 15.9 H (11.5-14.0) % Plt Count 267 (150-450) x10^3/uL MPV 9.4 (7.5-11.0) fL Gran % 79.0 H (36.0-66.0) % Immature Gran % (Auto) 0.3 (0.00-0.4) % Nucleat RBC Rel Count 0.0 (0.00-0.1) % Eos # (Auto) 0.34 (0-0.5) x10^3/uL Immature Gran # (Auto) 0.03 (0.00-0.03) x10^3u/L Absolute Lymphs (auto) 0.88 L (1.0-4.6) x10^3/uL Absolute Monos (auto) 0.60 (0.0-1.3) x10^3/uL Absolute Nucleated RBC 0.00 (0.00-0.01) x10^3u/L Lymphocytes % 9.8 L (24.0-44.0) % Monocytes % 6.7 (0.0-12.0) % Eosinophils % 3.8 (0.00-5.0) % Basophils % 0.4 (0.0-0.4) % Absolute Granulocytes 7.13 H (1.4-6.9) x10^3/uL Basophils # 0.04 (0-0.4) x10^3/uL POC Glucometer 168 H (74 to 106) mg/dL Microbiology 11/22/22 13:40 Aerobic Culture Result 1 - Final Heel - Left Not Reportable Aerobic Culture Result 2 - Final Not Reportable Aerobic Culture Result 3 - Final Not Reportable Aerobic Culture Result 4 - Final Not Reportable Aerobic Bacterial Sensitivity - Final Not Reportable Accuchecks Date 11/23/22 Date 11/22/22 Date 11/22/22 Date 11/22/22 Time 07:31 Time 21:00 Time 16:44 Time 11:57 Assessment/Plan (1) Diabetic foot ulcer associated with type 2 diabetes mellitus, with fat layer exposed Current Visit: Yes Status: Acute Assessment & Plan: Patient examination and evaluation Radiographs reviewed demonstrating normal soft tissue plane No evidence of osseous abnormalities Surgical intervention appears to have been successful for the immediate term irradicating malodor and necrotic and non viable tissue. No indication of OM on inspection of wound surgically Will plan for repeate debridement in OR, IV abx for now Vancomycin pharmacy to dose and zosyn 3.375g q8h Pain control as prescribed Follow up in OR monday. Will follow closely until then Following procedure OK for d/c anticipate IV abx and HHC on transition. Code(s): E11.621 - TYPE 2 DIABETES MELLITUS WITH FOOT ULCER; L97.502 - NON-PRS CHRONIC ULCER OTH PRT UNSP FOOT W FAT LAYER EXPOSED (2) Charcot Omaira Tooth muscular atrophy Current Visit: Yes Status: Acute Code(s): G60.0 - HEREDITARY MOTOR AND SENSORY NEUROPATHY (3) Neuropathy, peripheral, hereditary Current Visit: Yes Status: Acute Code(s): G60.9 - HEREDITARY AND IDIOPATHIC NEUROPATHY, UNSPECIFIED
[2022-11-23] MEDS ORDERED: Lantus Insulin SQ SCH (10:00)
[2022-11-23] MEDS: HUMALOG SQ PRN ×2 (12:17→16:45)
[2022-11-23 20:06] LABS: 027 TOX PROD PRESUMPTIVE NEGATIVE (NEGATIVE); TOXIGENIC C. DIFF ORG NEGATIVE (NEGATIVE)
[2022-11-23] MEDS: Lantus Insulin SQ SCH (21:23)
[2022-11-23] MEDS: Flomax 0.4 MG PO SCH (21:24)
[2022-11-23] MEDS: IMODIUM 2 MG PO PRN (21:25)
[2022-11-23] MEDS: MELATONIN PO SCH (21:26)
[2022-11-23] MEDS: VANCOMYCIN 1.25 GM/250 ML BAG 1.25 GM/250 ML PIGGYBACK IV SCH (21:30)
[2022-11-24] MEDS: Piperacillin/Tazobactam 2.25 GM 2.25 GM in Sodium Chloride 100ML MINI-BAG PLUS 100 ML IV SCH ×4 (01:13→17:08)
[2022-11-24 05:44] LABS: Absolute Neutrophil Ct (ANC) 6.29 x10^3/uL (1.4-6.9); Basophil (Absolute #) 0.03 x10^3/uL (0-0.4); Eosinophil % 3.9 % (0.00-5.0); Eosinophil (Absolute #) 0.32 x10^3/uL (0-0.5); Hematocrit 26.5 % (42-50); Hemoglobin 7.9 g/dL (12.5-18.0); Lymphocyte (Absolute #) 0.92 x10^3/uL (1.0-4.6); Lymphocytes % 11.2 % (24.0-44.0); Mean Cell Volume 91.1 fL (78-100); Mean Corpuscular Hemoglobin 27.1 pg (26-32); Mean Corpuscular Hgb Concent. 29.8 g/dL (32-36); Mean Platelet Volume 10.1 fL (7.5-11.0); Monocyte (Absolute #) 0.63 x10^3/uL (0.0-1.3); Monocytes % 7.7 % (0.0-12.0); Neutrophil % 76.4 % (36.0-66.0); Platelet Count 272 x10^3/uL (150-450); Red Blood Count 2.91 x10^6/uL (4.1-5.6); Red Cell Distribution Width 16.1 % (11.5-14.0); White Blood Count 8.2 x10^3/uL (4.0-10.5)
[2022-11-24 06:13] LABS: ALBUMIN 3.3 g/dL (3.5-5.0); ANION GAP 14.6 MEQ/L (5-15); BILIRUBIN,TOTAL 0.2 mg/dL (0.2-1.3); Calcium 7.9 mg/dL (8.4-10.2); Creatinine 1 2.53 mg/dL (0.66-1.25); EST GLOMERULAR FILTRATION RATE 27.6 ML/MIN; Potassium 4.8 mmol/L (3.5-5.1); Total Protein 6.3 g/dL (6.3-8.2)
[2022-11-24] MEDS: Glucotrol 5 MG PO SCH ×2 (08:01→16:36)
[2022-11-24] MEDS: IMODIUM 2 MG PO PRN ×2 (08:01→17:36)
[2022-11-24] MEDS: Glucophage 500 MG PO SCH ×2 (08:02→16:36)
[2022-11-24] MEDS: Ecotrin 325 MG PO SCH (10:02)
[2022-11-24] MEDS: ZOCOR 20MG PO SCH (10:02)
[2022-11-24] MEDS: Januvia 50 MG PO SCH (10:02)
[2022-11-24] MEDS: ISOPTIN SR PO SCH (10:02)
[2022-11-24] MEDS: Lasix 40 MG PO SCH ×3 (10:02→22:39)
[2022-11-24] MEDS: Pepcid 20 MG PO SCH (10:03)
[2022-11-24] MEDS: Aldactone 25 MG PO SCH (10:09)
[2022-11-24] MEDS: Lantus Insulin SQ SCH ×2 (10:30→22:40)
--- NOTE | 2022-11-24 13:17 | PCM.NOTE ---
Date and Time: 11/24/22 1316 Subjective Assessment: Chairside. Denies pain. Denies any constitutional symptoms of infection. No other pedal complaints Physical Exam - Narrative Narrative Physical Exam: Podiatry Physical Exam OBJECTIVE DATA Vital Signs: Vital Signs - 24 hr Temp Pulse Resp BP Pulse Ox 11/24/22 10:35 97.7 F 94 H 18 162/69 94 L 11/24/22 07:18 97.7 F 91 H 18 140/63 93 L 11/24/22 04:00 98.4 F 87 20 137/62 94 L 11/24/22 00:00 97.5 F 92 H 19 160/70 96 11/23/22 20:00 98.4 F 99 H 20 163/69 95 11/23/22 15:59 98.0 F 94 H 16 130/58 95 Pain Assessment - Last Documented Pain Intensity 0 Pain Scale Used 0-10 Pain Scale Intake and Output: Intake & Output 11/22/22 11/23/22 11/24/22 11/25/22 11:59 11:59 11:59 11:59 Intake Total 840 2280 1320 360 Output Total 1 Balance 840 2280 1319 360 Weight 128.82 kg 128.82 kg Lab Results: Lab Results-Last 24 Hours 11/23/22 11/23/22 11/23/22 Range/Units 16:24 19:20 20:34 WBC (4.0-10.5) x10^3/uL RBC (4.1-5.6) x10^6/uL Hgb (12.5-18.0) g/dL Hct (42-50) % MCV (78-100) fL MCH (26-32) pg MCHC (32-36) g/dL RDW (11.5-14.0) % Plt Count (150-450) x10^3/uL MPV (7.5-11.0) fL Gran % (36.0-66.0) % Immature Gran % (Auto) (0.00-0.4) % Nucleat RBC Rel Count (0.00-0.1) % Eos # (Auto) (0-0.5) x10^3/uL Immature Gran # (Auto) (0.00-0.03) x10^3u/L Absolute Lymphs (auto) (1.0-4.6) x10^3/uL Absolute Monos (auto) (0.0-1.3) x10^3/uL Absolute Nucleated RBC (0.00-0.01) x10^3u/L Lymphocytes % (24.0-44.0) % Monocytes % (0.0-12.0) % Eosinophils % (0.00-5.0) % Basophils % (0.0-0.4) % Absolute Granulocytes (1.4-6.9) x10^3/uL Basophils # (0-0.4) x10^3/uL Sodium (137-145) mmol/L Potassium (3.5-5.1) mmol/L Chloride (98-107) mmol/L Carbon Dioxide (22-30) mmol/L Anion Gap (5-15) MEQ/L BUN (9-20) mg/dL Creatinine (0.66-1.25) mg/dL Estimated GFR ML/MIN Glucose (74-106) mg/dL POC Glucometer 264 H 300 H (74 to 106) mg/dL Calcium (8.4-10.2) mg/dL Total Bilirubin (0.2-1.3) mg/dL AST (17-59) U/L ALT (0-50) U/L Alkaline Phosphatase (38-126) U/L Serum Total Protein (6.3-8.2) g/dL Albumin (3.5-5.0) g/dL C. difficile Screen NEGATIVE (NEGATIVE) C.difficile 027-NAP1-B1 PRESUMPTIVE NEGATIVE (NEGATIVE) 11/24/22 11/24/22 11/24/22 Range/Units 00:20 04:00 05:47 WBC 8.2 (4.0-10.5) x10^3/uL RBC 2.91 L (4.1-5.6) x10^6/uL Hgb 7.9 L (12.5-18.0) g/dL Hct 26.5 L (42-50) % MCV 91.1 (78-100) fL MCH 27.1 (26-32) pg MCHC 29.8 L (32-36) g/dL RDW 16.1 H (11.5-14.0) % Plt Count 272 (150-450) x10^3/uL MPV 10.1 (7.5-11.0) fL Gran % 76.4 H (36.0-66.0) % Immature Gran % (Auto) 0.4 (0.00-0.4) % Nucleat RBC Rel Count 0.0 (0.00-0.1) % Eos # (Auto) 0.32 (0-0.5) x10^3/uL Immature Gran # (Auto) 0.03 (0.00-0.03) x10^3u/L Absolute Lymphs (auto) 0.92 L (1.0-4.6) x10^3/uL Absolute Monos (auto) 0.63 (0.0-1.3) x10^3/uL Absolute Nucleated RBC 0.00 (0.00-0.01) x10^3u/L Lymphocytes % 11.2 L (24.0-44.0) % Monocytes % 7.7 (0.0-12.0) % Eosinophils % 3.9 (0.00-5.0) % Basophils % 0.4 (0.0-0.4) % Absolute Granulocytes 6.29 (1.4-6.9) x10^3/uL Basophils # 0.03 (0-0.4) x10^3/uL Sodium 139 (137-145) mmol/L Potassium 4.8 (3.5-5.1) mmol/L Chloride 106 (98-107) mmol/L Carbon Dioxide 23 (22-30) mmol/L Anion Gap 14.6 (5-15) MEQ/L BUN 55 H (9-20) mg/dL Creatinine 2.53 H (0.66-1.25) mg/dL Estimated GFR 27.6 ML/MIN Glucose 136 H (74-106) mg/dL POC Glucometer 233 H (74 to 106) mg/dL Calcium 7.9 L (8.4-10.2) mg/dL Total Bilirubin 0.20 (0.2-1.3) mg/dL AST 12 L (17-59) U/L ALT 10 (0-50) U/L Alkaline Phosphatase 133 H (38-126) U/L Serum Total Protein 6.3 (6.3-8.2) g/dL Albumin 3.3 L (3.5-5.0) g/dL C. difficile Screen (NEGATIVE) C.difficile 027-NAP1-B1 (NEGATIVE) 11/24/22 11/24/22 11/24/22 Range/Units 07:02 10:09 11:22 WBC (4.0-10.5) x10^3/uL RBC (4.1-5.6) x10^6/uL Hgb (12.5-18.0) g/dL Hct (42-50) % MCV (78-100) fL MCH (26-32) pg MCHC (32-36) g/dL RDW (11.5-14.0) % Plt Count (150-450) x10^3/uL MPV (7.5-11.0) fL Gran % (36.0-66.0) % Immature Gran % (Auto) (0.00-0.4) % Nucleat RBC Rel Count (0.00-0.1) % Eos # (Auto) (0-0.5) x10^3/uL Immature Gran # (Auto) (0.00-0.03) x10^3u/L Absolute Lymphs (auto) (1.0-4.6) x10^3/uL Absolute Monos (auto) (0.0-1.3) x10^3/uL Absolute Nucleated RBC (0.00-0.01) x10^3u/L Lymphocytes % (24.0-44.0) % Monocytes % (0.0-12.0) % Eosinophils % (0.00-5.0) % Basophils % (0.0-0.4) % Absolute Granulocytes (1.4-6.9) x10^3/uL Basophils # (0-0.4) x10^3/uL Sodium (137-145) mmol/L Potassium (3.5-5.1) mmol/L Chloride (98-107) mmol/L Carbon Dioxide (22-30) mmol/L Anion Gap (5-15) MEQ/L BUN (9-20) mg/dL Creatinine (0.66-1.25) mg/dL Estimated GFR ML/MIN Glucose (74-106) mg/dL POC Glucometer 91 149 H 145 H (74 to 106) mg/dL Calcium (8.4-10.2) mg/dL Total Bilirubin (0.2-1.3) mg/dL AST (17-59) U/L ALT (0-50) U/L Alkaline Phosphatase (38-126) U/L Serum Total Protein (6.3-8.2) g/dL Albumin (3.5-5.0) g/dL C. difficile Screen (NEGATIVE) C.difficile 027-NAP1-B1 (NEGATIVE) Multi-Disciplinary Progress Notes: Multi-Disciplinary Progress Notes 11/24/22 12:08 Case Management Note by Nelly Mcpherson S/W PATIENT- HE STILL PLANS TO RETURN HOME TO HIS F AT TIME OF DC. HE REPORTS HE IS ON GOVERNEMENT HOUSING AND IS ROCKY FOR LOSING HIS HOUSING IN DECEMBER. [facility] WILL ALSO ADD EXTRACTOR LOADER AND UNLOADER TO [facility] Initialized on 11/24/22 12:08 - END OF NOTE 11/23/22 16:52 OT Plan of Care Note by Morelia Rabago OT Eval OT Eval and Treat MD Order Start: 11/21/22 17:32 Freq: ONCE Status: Complete Protocol: Created 11/21/22 17:33 [facility] (Rec: 11/21/22 17:33 [facility] [id number]) Document 11/22/22 14:00 [facility]LIN (Rec: 11/22/22 14:31 [facility] [id number]) OT Assessment Equipment at Home Prior to Admission Wheelchair Document 11/23/22 12:55 KA (Rec: 11/23/22 12:56 KA [id number]) OT Assessment Pertinent Past Medical History PATIENT ADMITTED FOR PRESSURE ULCER ON LEFT FOOT (SURGERY ON 11-22-22 AND NWB STATUS). PATIENT HAD BEEN FOLLOWING WITH WOUND CARE CLINIC AND PREVIOUS PHYSICAL THERAPY WITH CHRONIC CELLULITIS ON BLE. PMH: [id number], NEUROPATHY, HIGH A1C BASELINE: PATIENT LIVES ALONE IN 1 LEVEL HOUSE (NO STEPS TO ENTER), ROOMMATE RECENTLY , INDEPENDENT WITH ALL I/ADLS, COMPLETES STAND- PIVOT TRANSFERS ONLYL; OWNS AND DRIVES ACCESSIBLE VAN. HIS SISTER ASSISTS NEEDED SHE LIVES 1 BLOCK AWAY. PATIENT REPORTS THAT HE WILL BEGIN LOOKING FOR A NEW HOME AT THE END OF DECEMBER. Equipment at Home Prior to Admission Cane Comment 5 POWER WHEELCHAIRS BATHROOM: SPONGE BATH, RAISED TOILET SEAT Date 11/23/22 Feeding WFL Comment SET UP ASSIST Grooming WFL Comment SET UP ASSIST Bathing Impaired Comment MIN ASSIST DUE TO POOR THOROUGHNESS Comment PATIENT DID NOT COMPLETE THIS TASK DURING EVALUATION Toileting Impaired Comment PATIENT COMPLETES IND, BUT FULL WEIGHTBEARING ON LEFT LE. IADLS (If indicated) Homemaking,etc WFL Comment WFL FROM W/C LEVEL Bed Mobility Impaired Comment MAX ASSIST (SLEEPS IN RECLINER AT HOME- LIFT CHAIR). Toilet Transfers Impaired Comment PATIENT IS FULL WEIGHTBEARING ON LEFT LE. Functional Transfers Impaired Comment DISREGARDS WEIGHTBEARING STATUS (IND WILL FULL WEIGHTBEARING). Functional Endurance FAIR (-): 15 MIN IN SITTING ; POOR IN STANDING (LESS THEN 2 MIN). Cognition ALERT AND ORIENTED X 4 Other Objective Data PATIENT DISREGARDS NWB STATUS AND REPORTS "THE DOC, SAID I COULD PUT A LITTLE WEIGHT THROUGH MY LEG DURING TRANSFERS"; HOWEVER, FULL WEIGHTBEARING THROUGHOUT TRANSFER. POOR TRANSFER TECHNIQUE; PATIENT PLACES W /C PARALLEL TO BED AND COMPLETES 180 WITH FULL WEIGHTBEARING (IND WITHOUT ASSIST). OT PROVIDES EDUCATION ON NWB STATUS AND RECOMMENDATION FOR TRANSFER WITH DISREGARD. LIMITED HAND AND WRIST ROM DUE TO [id number] ( functional for patient). Functional Problem List DECREASED STANDING BALANCE, DECREASED UB STRENGTH, POOR ADHERENCE TO NWB LIMITING HEALING OF WOUND. Pain Limitations 3/10 PAIN IN LEFT FOOT NEAR INCISION Therapuetic Interventions FUNCTIONAL TRANSFERS, UE STRENGTHENING/ROM, EDUCATION, ADLS Functional Goals of Treatment 1. PATIENT WILL DEMO UNDERSTANDING AND INDEPENDENCE WITH TRANSFER TRAINING/ EDUCATION. 2. PATIENT WILL DEMO UNDERSTANDING AND INDEPENDENCE WITH ADL/IADL AND A/E EDUCATION/TRAINING. 3. PATIENT WILL DEMO UNDERSTANDING AND INDEPENDENCE WITH SAFETY AWARENESS TRAINING. OT Inpatient Plan of Care Date of Evaluation 11/23/22 Treatment Diagnosis PRESSURE ULCER LEFT FOOT Precaution/Orders as written NWB Frequency/Duration 5X/WEEK Patient assessed for Rehab Services Yes Was notification received of nursing No assessment trigger Chart screen completed Yes Are referral orders warranted for Yes evaluation Is an intervention justified at this Yes time Comment BARRIERS: PATIENT IS INDEPENDENT AND SET IN ROUTINES. Initialized on 11/23/22 16:52 - END OF NOTE 11/23/22 13:55 Case Management Note by Nelly Mcpherson S/W PATIENT ABOUT DR ROBINSON WANTING HHC- PATIENT AGREEABLE. HE HAS NO PREFERENCE IN COMPANY. WILL SEND TO TOP RATED READILY AVAILABLE [facility]. REFERRAL FAXED AT THIS TIME Initialized on 11/23/22 13:55 - END OF NOTE 11/23/22 13:51 Case Management Note by Nelly Mcpherson S/W DR BOWERS- HE WAS SHOWN CULTURE RESULTS ON LEFT HEEL FROM 11/03. HE REPORTS WE CAN NOW PLAN TO SEND PATIENT HOME ON PO ANTIBIOTICS ON MONDAY AFTER OR. PATIENT WILL NEED HHC WITH DRESSING CHANGES THREE TIMES A WEEK Initialized on 11/23/22 13:51 - END OF NOTE Assessment/Plan (1) Diabetic foot ulcer associated with type 2 diabetes mellitus, with fat layer exposed Current Visit: Yes Status: Acute Assessment & Plan: Patient seen at chairside. Doing well without complication Dressing changed demonstrating improved appearance with minimal indications of infection. Necrosis noted to to posterior superior margin of wound. Return to OR tomorrow Will be preformed under local No NPO necessary Consent to read: repeat Incision and drainage with bone debridment left foot multilayer compression dressing applied left leg Ok for d/c following procedure if all goes anticipated from my stand point if OK with medicine. Code(s): E11.621 - TYPE 2 DIABETES MELLITUS WITH FOOT ULCER; L97.502 - NON-PRS CHRONIC ULCER OTH PRT UNSP FOOT W FAT LAYER EXPOSED (2) Charcot Omaira Tooth muscular atrophy Current Visit: Yes Status: Acute Code(s): G60.0 - HEREDITARY MOTOR AND SENSORY NEUROPATHY (3) Neuropathy, peripheral, hereditary Current Visit: Yes Status: Acute Code(s): G60.9 - HEREDITARY AND IDIOPATHIC NEUROPATHY, UNSPECIFIED (4) Venous (peripheral) insufficiency Current Visit: Yes Status: Acute Code(s): I87.2 - VENOUS INSUFFICIENCY (CHRONIC) (PERIPHERAL) (5) Localized edema Current Visit: Yes Status: Acute Code(s): R60.0 - LOCALIZED EDEMA
[2022-11-24] MEDS: Cyclobenzaprine 10 MG PO PRN (17:36)
[2022-11-24] MEDS: NORCO 5/325 MG PO PRN (17:36)
[2022-11-24] MEDS: MELATONIN PO SCH (19:01)
[2022-11-24] MEDS ORDERED: TROUGH DRUG LEVELS IJ ONE (21:30)
[2022-11-24] MEDS: Flomax 0.4 MG PO SCH (22:39)
[2022-11-24] MEDS: VANCOMYCIN 1.25 GM/250 ML BAG 1.25 GM/250 ML PIGGYBACK IV SCH (22:41)
[2022-11-25] MEDS: Piperacillin/Tazobactam 2.25 GM 2.25 GM in Sodium Chloride 100ML MINI-BAG PLUS 100 ML IV SCH ×2 (00:03→05:03)
[2022-11-25 05:40] LABS: Hematocrit 26.9 % (42-50); Mean Cell Volume 90.9 fL (78-100); Mean Corpuscular Hgb Concent. 29.7 g/dL (32-36); Platelet Count 291 x10^3/uL (150-450); Red Blood Count 2.96 x10^6/uL (4.1-5.6); Red Cell Distribution Width 16.1 % (11.5-14.0); White Blood Count 8.7 x10^3/uL (4.0-10.5)
[2022-11-25] MEDS ORDERED: Lactated Ringers 1,000 ML IV ONE (06:08)
[2022-11-25 06:23] LABS: ALBUMIN 3.3 g/dL (3.5-5.0); ANION GAP 13.9 MEQ/L (5-15); BILIRUBIN,TOTAL 0.2 mg/dL (0.2-1.3); Creatinine 1 2.39 mg/dL (0.66-1.25); EST GLOMERULAR FILTRATION RATE 29.4 ML/MIN; Potassium 4.7 mmol/L (3.5-5.1); Total Protein 6.6 g/dL (6.3-8.2)
[2022-11-25] MEDS: Glucotrol 5 MG PO SCH (07:52)
[2022-11-25] MEDS: Glucophage 500 MG PO SCH (07:52)
[2022-11-25 09:43] VITALS: BP 137/61; PULSE 87; O2SAT 92
[2022-11-25] MEDS: Januvia 50 MG PO SCH (10:10)
[2022-11-25] MEDS: ZOCOR 20MG PO SCH (10:10)
[2022-11-25] MEDS: Pepcid 20 MG PO SCH (10:10)
[2022-11-25] MEDS: ISOPTIN SR PO SCH (10:10)
[2022-11-25] MEDS: Ecotrin 325 MG PO SCH (10:10)
[2022-11-25] MEDS: Lasix 40 MG PO SCH (10:10)
--- NOTE | 2022-11-25 11:59 | OP ---
SURGERY DATE/TIME: 11/25/2022 0650 PREOPERATIVE DIAGNOSES: 1) Diabetic foot infection left foot. 2) Partial laceration to level of bone left foot. 3) Mwomvce-Aypgg-Hauro. 4) Pain left foot. POSTOPERATIVE DIAGNOSES: 1) Diabetic foot infection left foot. 2) Partial laceration to level of bone left foot. 3) Xmdxmlh-Ctcpr-Lroci. 4) Pain left foot. PROCEDURE: Repeat debridement with incision and drainage to level of bone left foot, calcaneus. SURGEON: Ad Richardson DPM. RN STARS: None. ANESTHESIA: None. HEMOSTASIS: Pressure dressing. ESTIMATED BLOOD LOSS: Less 10 cc. MATERIALS: None. INJECTABLES: None. INDICATION FOR SURGERY: The patient was seen on Monday of this week in my clinic with concerns of a new ulceration that was severely necrotic and devitalized. At this time the patient was brought in the following day for debridement of the wound resulting in significant improvement. However at this time there is still some necrosis and some residual infected tissue at the proximal margin of the wound. At this time decision was made to proceed with a staged procedure and repeat debridement of the left calcaneus. The patient is largely neuropathic so he was awake for the procedure. The patient understands all risks, complications and benefits of surgical intervention including but not limited to infection, hematoma, seroma, possibility of delayed wound healing, nonwound healing and possibility of need for further surgical intervention at a later date. No guarantees were provided as to the outcome and it is with that we decided to proceed. DESCRIPTION OF PROCEDURE AND FINDINGS: The patient is brought into the OR and placed on the OR table in the supine position. At this time the left lower extremity was prepped and draped in the typical sterile fashion and lowered onto the surgical field. At this time a curette was utilized to debride nonvitalized tissue at the proximal margin along with some bone at the proximal margin which was debrided. Following this a rongeur was utilized to debride the fibrotic edges at the distal plantar aspect which did proceed down to the level of the subcutaneous tissue. Measurements were taken following the debridement which demonstrated a wound 6.7 x 4.3 x 0.2. Following this copious amounts of sterile saline through Pulsavac were utilized to flush the surgical site. A dressing consisting of Betadine, Adaptic, 4x4, ABD, Kerlix and DEAN were then applied to the patient's left lower extremity. The patient was then returned to his room. He handled the procedure without complication. Postoperative orders as indicated in the patient's discharge chart.
== END 2022-11-25 10:30 | disposition home or self-care (01) ==
LOC: MED SURG 14:05
PROVIDERS: ADMIT Family Medicine; ATTEND Family Medicine
DX: E11.621 Type 2 diabetes mellitus with foot ulcer (principal); G60.0 Hereditary motor and sensory neuropathy; G60.9 Hereditary and idiopathic neuropathy, unspecified; M86.8X7 Other osteomyelitis, ankle and foot; I87.2 Venous insufficiency (chronic) (peripheral); L97.502 Non-pressure chronic ulcer of other part of unspecified foot with fat layer exposed; S91.312A Laceration without foreign body, left foot, initial encounter; R60.0 Localized edema; Z79.899 Other long term (current) drug therapy; Z20.828 Contact with and (suspected) exposure to other viral communicable diseases
CPT/HCPCS: 0241U; 28005; 29581; 36415; 80048; 80053; 80202; 82947; 83036; 83605; 84134; 85025; 85027; 85610; 85652; 85730; 86140; 87070; 87075; 87493; 88304; 93005; 94760; 99024; A6260; G0378; J1817; J2001; J2543; A9270-GY; J3370

== ENCOUNTER 2023-01-20 05:33 | Day surgery (SDC) | payer MEDICARE ==
[2023-01-20] MEDS ORDERED: Lactated Ringers 1,000 ML IV ONE ×2 (06:41→06:49)
[2023-01-20] MEDS ORDERED: CEFAZOLIN 2 GM-D5W BAG** 2 GM/50 ML ML IV ONE (06:43)
[2023-01-20] MEDS ORDERED: Marcaine Mpf 0.5% Vial 30 Ml ONE (06:49)
[2023-01-20] MEDS ORDERED: XYLOCAINE 1% HCL 20 ML MDV ONE (06:49)
[2023-01-20 07:10] LABS: Hematocrit 29.8 % (42-50); Mean Cell Volume 91.1 fL (78-100); Mean Corpuscular Hemoglobin 27.5 pg (26-32); Mean Corpuscular Hgb Concent. 30.2 g/dL (32-36); Mean Platelet Volume 9.1 fL (7.5-11.0); Platelet Count 367 x10^3/uL (150-450); Red Blood Count 3.27 x10^6/uL (4.1-5.6); Red Cell Distribution Width 16.2 % (11.5-14.0); White Blood Count 12.9 x10^3/uL (4.0-10.5)
[2023-01-20 07:22] LABS: PROTIME 10.9 SECONDS (9.4-12.5)
[2023-01-20 07:23] LABS: ALBUMIN 3.7 g/dL (3.5-5.0); ANION GAP 15.4 MEQ/L (5-15); BILIRUBIN,TOTAL 0.3 mg/dL (0.2-1.3); Calcium 8.5 mg/dL (8.4-10.2); Creatinine 1 2.09 mg/dL (0.66-1.25); EST GLOMERULAR FILTRATION RATE 34.4 ML/MIN; Potassium 4.6 mmol/L (3.5-5.1); Total Protein 7.4 g/dL (6.3-8.2)
[2023-01-20] MEDS ORDERED: Lactated Ringers 1,000 ML IV SCH (07:30)
[2023-01-20] MEDS ORDERED: CEFAZOLIN 2 GM-D5W BAG** 2 GM/50 ML ML IV SCH (08:00)
[2023-01-20 09:23] VITALS: BP 138/93; PULSE 73; O2SAT 93
--- NOTE | 2023-01-20 12:05 | OP ---
SURGERY DATE/TIME: 01/20/2023 0819 PREOPERATIVE DIAGNOSES: 1) Left leg wound to level of bone lateral aspect diabetic foot wound. 2) Left lateral foot wound to lateral calcaneus to level of bone. 3) Diabetes mellitus. 4) Peripheral neuropathy. 5) Venous insufficiency. POSTOPERATIVE DIAGNOSES: 1) Left leg wound to level of bone lateral aspect diabetic foot wound. 2) Left lateral foot wound to lateral calcaneus to level of bone. 3) Diabetes mellitus. 4) Peripheral neuropathy. 5) Venous insufficiency. PROCEDURES: 1) Incision and drainage to level of bone to the left ankle. 2) Incision and drainage to level of bone left foot. 3) Application of synthetic skin substitute. SURGEON: Ad Richardson DPM. VEGETABLE PREPARER: None. ANESTHESIA: None. HEMOSTASIS: Pressure dressing. ESTIMATED BLOOD LOSS: Approximately 10 cc. MATERIALS: Integra Bilayer Matrix, surgical vaibhav. INJECTABLES: None. The patient is largely neuropathic. INDICATION FOR SURGERY: Reji is a very pleasant 62-year-old male who presented to my service several weeks ago in early 2022 for concerns of a septic foot wound that developed fairly quickly. The patient was brought into the OR and debrided and this was debrided down to the level of bone at the lateral wall of the left calcaneus. The patient at this time has made significant improvement to this wound with healthy granulation tissue extending almost to the top three-quarters of the proximal aspect of the wound however still probes to bone at that aspect and the patient did have after the second week following the surgery an accident where he ran into a surface at the lateral aspect of his leg and developed a hematoma. The hematoma was debrided in clinic and he has been progressing fairly well. However, the wound at the lateral side of the leg has been getting worse with concern for exposed bone at the fibula. At this time options were discussed with the patient. The patient would like to proceed at this time with a debridement and application of synthetic skin substitute. The patient understands all risks, complications and benefits of surgical intervention at this time including but not limited to infection, hematoma, seroma, possibility of delayed skin healing, nonskin healing, need for surgical intervention, possible loss of limb and possible loss of life. The patient understands all of this and wishes to proceed. Plenty of time was allowed for questions to be asked. At this time the decision was made to plan this as a staged procedure going forward with if he has success of recovery to the bone we would plan a split thickness skin graft in the not so distant future. The patient understands this and wishes to proceed. DESCRIPTION OF PROCEDURE AND FINDINGS: The patient was brought into the OR and placed on the OR table in the supine position. At this time secondary to the patient's significant neuropathy, no anesthesia was administered nor was any local anesthesia administered. The patient's left lower extremity was prepped and draped in the typical sterile fashion and lowered onto the surgical field. At this time attention was directed to the lateral aspect of the left leg where a curette along with a 15 blade and rongeur was utilized to debride the wound down to the level of bone. The bone was aggressively debrided utilizing a curette. Following this some of the cellulitis was probed at the anterior aspect of the leg and the wound was measured out to be 12.2 x 6.7 with central aspect of bone that was exposed measuring 3.0 x 2.7 x 0.1. At this time copious amounts of sterile saline were utilized to flush this site. Following this the wound at the lateral aspect of the left foot was debrided. A combination of curettes, rongeurs and 15 blade was utilized to sharply dissect this area down to the level of bone at the dorsal proximal aspect of the lateral wall of the calcaneus. Good healthy granulation tissue was debrided at the distal aspect of the wound. Following this copious amounts of sterile saline were used to flush this site and a 4.5 synthetic skin substitute Integra Bilayer Mesh was then applied to the lateral ankle wound as well as the lateral calcaneal wall. Following this a dressing consisting of Betadine, Adaptic, 4x4, Kerlix and DEAN were applied to the left lower extremity giving moderate compression as the patient's venous insufficiency is limiting factor for patients healing potential. The patient was then returned to the postoperative area with vital signs stable and vascular status intact. He handled the anesthesia as well as the procedure without significant complication. Postoperative orders as indicated in the patient's discharge chart.
== END 2023-01-20 09:40 | disposition home or self-care (01) ==
LOC: SDC 05:33
PROVIDERS: ATTEND Podiatrist Foot & Ankle Surgery
DX: E11.621 Type 2 diabetes mellitus with foot ulcer (principal); E11.40 Type 2 diabetes mellitus with diabetic neuropathy, unspecified; I87.2 Venous insufficiency (chronic) (peripheral)
CPT/HCPCS: 36415; 80053; 82947; 85027; 85610; 87075; J0690

== ENCOUNTER 2023-03-06 10:50 | Inpatient (IN) | payer MEDICARE ==
[2023-03-06 13:01] LABS: INFLUENZA A NEGATIVE (NEGATIVE); INFLUENZA B NEGATIVE (NEGATIVE); RESPIRATORY SYNCTIAL VIRUS NEGATIVE (NEGATIVE); SARS-CoV-2 Xpert Express NEGATIVE (NEGATIVE)
[2023-03-06 13:19] LABS: ALBUMIN 3.2 g/dL (3.5-5.0); BILIRUBIN,TOTAL 0.3 mg/dL (0.2-1.3); Creatinine 1 1.49 mg/dL (0.66-1.25); EST GLOMERULAR FILTRATION RATE 50.8 ML/MIN; Potassium 4.1 mmol/L (3.5-5.1); Total Protein 6.8 g/dL (6.3-8.2)
--- NOTE | 2023-03-06 13:21 | PCM.HP ---
History of Present Illness - Chief Complaint Chief Complaint: OSTEOMYELITIS LEFT FOOT History of Present Illness: Mr.LEE ROSARIO is a 62 year old male diabetic patient of Dr Luevano who has failed outpatient treatment for cellulitis of left foot. Surg Rn Dr Duong has been treating but feels patient requires inpatient treatment. PMHx includes HTN,HLD,IDDM2 Medications & Allergies Home Medications: Home Medication List Fluticasone Propionate [24 Hour Allergy] 1 spray NS BIDPRN PRN 02/08/21 [History Confirmed 03/06/23] Furosemide 80 mg PO BID 02/08/21 [History Confirmed 03/06/23] Metformin HCl [Glucophage] 1,000 mg PO BID 02/08/21 [History Confirmed 03/06/23] Simvastatin 80 mg PO HS 02/08/21 [History Confirmed 03/06/23] Sitagliptin Phosphate 50 MG [Januvia 50 MG] 50 mg PO HS 02/08/21 [History Confirmed 03/06/23] Spironolactone 25 mg [Aldactone 25 MG] 25 mg PO DAILY 02/08/21 [History Confirmed 03/06/23] Tamsulosin HCl 0.4 mg [Flomax 0.4 MG] 0.4 mg PO HS 02/08/21 [History Confirmed 03/06/23] Verapamil HCl [Verapamil ER] 240 mg PO HS 02/08/21 [History Confirmed 03/06/23] glipiZIDE [Glipizide] 10 mg PO BID 02/08/21 [History Confirmed 03/06/23] Insulin Aspart [NovoLOG Insulin] 35 units SQ ACHS PRN 01/12/23 [History Confi rmed 03/06/23] Metolazone 2.5 mg [Zaroxolyn 2.5 MG] 2.5 mg PO DAILY 01/12/23 [History Confirmed 03/06/23] Metoprolol Tartrate 25 mg [Lopressor 25MG Tab] 1 tab PO HS 01/12/23 [History Confirmed 03/06/23] Montelukast Sodium 10 mg [Singulair 10 MG] 10 mg PO DAILY 01/12/23 [History Confirmed 03/06/23] Omeprazole 20 mg PO DAILY 01/12/23 [History Confirmed 03/06/23] Semaglutide [Ozempic] 1 mg SQ WEEKLY 01/12/23 [History Confirmed 03/06/23] Sildenafil Citrate [Viagra] 100 mg PO DAILY PRN 01/12/23 [History Confirmed 03/06/23] Hydrocodone/Acetaminophen [Hydrocodone-Acetamin 7.5-325] 0.5 tab PO HS PRN 03/06/23 [History Confirmed 03/06/23] Insulin Detemir [Levemir] 40 units SQ HS 03/06/23 [History Confirmed 03/06/23] Allergies/Adverse Reactions: Allergies Allergy/AdvReac Type Severity Reaction Status Date / Time sulfamethoxazole Allergy Unknown Verified 03/06/23 11:32 [From Bactrim] trimethoprim [From Bactrim] Allergy Unknown Verified 03/06/23 11:32 - Past Medical History Past Medical History: Yes Neurological History: Peripheral Neuropathy ENT History: No Pertinent History Cardiac History: No Pertinent History Respiratory History: No Pertinent History Endocrine Medical History: Diabetes Type I, Liver Disease Musculoskelatal History: Arthritis GI Medical History: No Pertinent History History: No Pertinent History Comment: LIVER AND KIDNEY HEALTH ISSUES, CMT disorder - Past Surgical History Past Surgical History: Yes Neuro Surgical History: No Pertinent History Cardiac History: No Pertinent History Respiratory Surgery: No Pertinent History GI Surgical History: No Pertinent History Genitourinary Surgical Hx: No Pertinent History Musculskeletal Surgical Hx: No Pertinent History, Other Male Surgical History: No Pertinent History Other Surgical History: foot ulcer operated on "years" ago - Social History Smoking Status: Never smoker Exposure to second hand smoke: No Alcohol: None Drug Use: none - Physical Exam Vital Signs: Vital Signs - 24 hr Temp Pulse Resp BP Pulse Ox 03/06/23 11:44 97.3 F 71 18 147/69 97 Results - Labs Lab/Micro Results: Lab Results-Last 24 Hours 03/06/23 03/06/23 03/06/23 Range/Units 11:55 11:55 11:56 ESR (0-15) mm/hr POC Glucometer 360 H 360 H (74 to 106) mg/dL Lactic Acid (0.4-2.0) Influenza Type A Ag NEGATIVE (NEGATIVE) Influenza Type B Ag NEGATIVE (NEGATIVE) RSV (PCR) NEGATIVE (NEGATIVE) SARS-CoV-2 (PCR) NEGATIVE (NEGATIVE) 03/06/23 03/06/23 Range/Units 12:02 12:03 ESR 54 H (0-15) mm/hr POC Glucometer (74 to 106) mg/dL Lactic Acid 1.5 (0.4-2.0) Influenza Type A Ag (NEGATIVE) Influenza Type B Ag (NEGATIVE) RSV (PCR) (NEGATIVE) SARS-CoV-2 (PCR) (NEGATIVE)
[2023-03-06] MEDS: HUMALOG SQ PRN ×3 (13:23→21:23)
[2023-03-06] MEDS ORDERED: Xylocaine 1% Vial 30 ML PF IJ ONE (14:02)
[2023-03-06] MEDS ORDERED: Marcaine Mpf 0.5% Vial 30 Ml ONE (14:02)
[2023-03-06] MEDS: VANCOMYCIN 1 GRAM/200 ML BAG 1 GM/200 ML PIGGYBACK IV SCH ×2 (14:28→23:02)
[2023-03-06] MEDS ORDERED: [UNRECOGNIZED DRUG - REMARK] NS PRN (14:28)
[2023-03-06] MEDS ORDERED: Flonase NASAL NS PRN (14:53)
[2023-03-06] MEDS ORDERED: Lactated Ringers 1,000 ML IV ONE (14:58)
[2023-03-06] MEDS: PIPERACILLIN/TAZOBACTAM 3.375 GM in Sodium Chloride 100ML MINI-BAG PLUS 100 ML IV SCH ×2 (15:59→21:22)
[2023-03-06] MEDS: Glucophage 500 MG PO SCH (17:52)
[2023-03-06] MEDS: Glucotrol 5 MG PO SCH (17:52)
[2023-03-06] MEDS: Lasix 40 MG PO SCH (17:53)
[2023-03-06] MEDS ORDERED: NORCO 5/325 MG PO PRN (18:27)
[2023-03-06] MEDS: NORCO 7.5/325 MG TAB PO PRN (20:01)
[2023-03-06] MEDS: Januvia 50 MG PO SCH (21:22)
[2023-03-06] MEDS: ZOCOR 20MG PO SCH (21:22)
[2023-03-06] MEDS: Flomax 0.4 MG PO SCH (21:23)
[2023-03-06] MEDS: ISOPTIN SR PO SCH (21:23)
[2023-03-06] MEDS: Lantus Insulin SQ SCH (21:23)
[2023-03-06] MEDS: Lopressor 25MG Tab PO SCH (21:32)
[2023-03-06] MEDS ORDERED: NON-FORMULARY ITEM (Furosemide [Furosemide] 80 MG Tablet) PO SCH (22:00)
[2023-03-06] MEDS ORDERED: NON-FORMULARY ITEM (Glipizide [Glipizide] 10 MG Tablet) PO SCH (22:00)
[2023-03-06] MEDS ORDERED: NON-FORMULARY ITEM (Insulin Detemir [Levemir] 100 UNIT/ML Vial) SQ SCH (22:00)
[2023-03-06] MEDS ORDERED: NON-FORMULARY ITEM (Simvastatin [Simvastatin] 80 MG Tablet) PO SCH (22:00)
[2023-03-06] MEDS ORDERED: NON-FORMULARY ITEM (Metformin Hcl [Glucophage] 1,000 MG Tablet) PO SCH (22:00)
[2023-03-07] MEDS: PIPERACILLIN/TAZOBACTAM 3.375 GM in Sodium Chloride 100ML MINI-BAG PLUS 100 ML IV SCH ×4 (00:58→18:04)
[2023-03-07 05:40] LABS: Absolute Neutrophil Ct (ANC) 9.17 x10^3/uL (1.4-6.9); BASOPHIL % 0.7 % (0.0-0.4); Basophil (Absolute #) 0.08 x10^3/uL (0-0.4); Eosinophil % 9.9 % (0.00-5.0); Eosinophil (Absolute #) 1.19 x10^3/uL (0-0.5); Hematocrit 21.7 % (42-50); IMMATURE GRAN # 0.07 x10^3u/L (0.00-0.03); IMMATURE GRAN % 0.6 % (0.00-0.4); Lymphocyte (Absolute #) 0.84 x10^3/uL (1.0-4.6); Mean Cell Volume 91.2 fL (78-100); Mean Corpuscular Hemoglobin 27.7 pg (26-32); Mean Corpuscular Hgb Concent. 30.4 g/dL (32-36); Mean Platelet Volume 10.1 fL (7.5-11.0); Monocyte (Absolute #) 0.69 x10^3/uL (0.0-1.3); Monocytes % 5.7 % (0.0-12.0); Neutrophil % 76.1 % (36.0-66.0); Platelet Count 320 x10^3/uL (150-450); Red Blood Count 2.38 x10^6/uL (4.1-5.6); Red Cell Distribution Width 15.9 % (11.5-14.0)
[2023-03-07 05:43] LABS: Hemoglobin 6.6 g/dL (12.5-18.0)
[2023-03-07 06:01] LABS: ALBUMIN 2.9 g/dL (3.5-5.0); ANION GAP 10.9 MEQ/L (5-15); BILIRUBIN,TOTAL 0.3 mg/dL (0.2-1.3); Calcium 7.9 mg/dL (8.4-10.2); Creatinine 1 1.8 mg/dL (0.66-1.25); EST GLOMERULAR FILTRATION RATE 40.8 ML/MIN; Potassium 4.4 mmol/L (3.5-5.1); Total Protein 6.2 g/dL (6.3-8.2)
[2023-03-07] MEDS ORDERED: MOTRIN 600 MG PO PRN (07:07)
[2023-03-07 07:37] LABS: ABO TYPING O; Antibody Screen NEGATIVE (NEGATIVE); RH TYPING POSITIVE
[2023-03-07 07:41] LABS: CROSS MATCH (PRBC) COMPATIBLE (COMPATIBLE)
[2023-03-07] MEDS: Singulair 10 MG PO SCH (09:00)
[2023-03-07] MEDS: Glucophage 500 MG PO SCH ×2 (09:00→16:40)
[2023-03-07] MEDS: Protonix 40MG Tablet PO SCH (09:00)
[2023-03-07] MEDS: Glucotrol 5 MG PO SCH ×2 (09:00→16:40)
[2023-03-07] MEDS: VANCOMYCIN 1 GRAM/200 ML BAG 1 GM/200 ML PIGGYBACK IV SCH ×2 (09:00→22:25)
[2023-03-07] MEDS ORDERED: NON-FORMULARY ITEM (Omeprazole [Omeprazole] 20 MG Capsule.Dr) PO SCH (10:00)
[2023-03-07 11:32] LABS: IFOB TEST RESULTS NEGATIVE (NEGATIVE)
--- NOTE | 2023-03-07 11:32 | OP ---
SURGERY DATE/TIME: 03/06/2023 1706 PREOPERATIVE DIAGNOSES: 1) Diabetic foot ulcer left lower extremity. 2) Diabetic peripheral neuropathy. 3) Osteomyelitis. 4) Diabetes without complication. 5) Failure of outpatient antibiotics. POSTOPERATIVE DIAGNOSES: 1) Diabetic foot ulcer left lower extremity. 2) Diabetic peripheral neuropathy. 3) Osteomyelitis. 4) Diabetes without complication. 5) Failure of outpatient antibiotics. PROCEDURES: 1) Incision and drainage to the left leg to level of bone, ankle. 2) Incision and drainage to the left foot to the level of bone. SURGEON: Ad Richardson DPM. MERCHANDISING TEAM LEAD: None. ANESTHESIA: None. HEMOSTASIS: Pressure dressing. ESTIMATED BLOOD LOSS: Approximately 20 cc. MATERIALS: Bactisure 1 liter. INJECTABLES: None. INDICATION FOR SURGERY: Reji is a very pleasant 62-year-old male well known to my service for ulcerations to the left lower extremity. The patient has made a significant amount of progress with healing his wounds. However, he has had a difficult time eradicating the infection that he developed over the last several days. The patient was doing well and proceeding with healing. However at a certain point he had missed a couple of days of IV antibiotics. Following that period of time, home health care was taking blood work on a consistent basis. As he was progressing, the white blood cell count was improving. He was kept on the IV antibiotics. However, after that period of time where he was off of the antibiotics the white blood cell count began to trend back up. Since then the patient has been exhibiting some constitutional symptoms of infection and at this time the decision was made for inpatient stay in order to provide him with IV antibiotics that are more aggressive than what he is on now as well as provide for aggressive wound care to prevent the infection from spreading to the bone. The patient understands all risks, complications and benefits of surgical intervention at this time including but not limited to infection, hematoma, seroma, possibility of delayed wound healing or nonwound healing and possibility of need for repeat surgical intervention at a later date. No guarantees were provided as to the outcome of surgical intervention. It is with that he decided to proceed. DESCRIPTION OF PROCEDURE AND FINDINGS: The patient is brought into the OR and placed on the OR table in the supine position. At this time the left lower extremity was prepped and draped in the typical sterile fashion and lowered onto the surgical field. At this time attention was directed to the lateral leg wound where a significant amount of bone had healed over at this time however there is a portion that is still exposed. Aggressive amounts of debridement were performed utilizing a curettes of varying sizes as well as rongeurs. Following this copious amounts of saline utilizing 1 liter of Bactisure was then utilized to flush this area. Following this attention was directed to the lateral foot where once again incision and drainage with bone debridement was performed until there was a healthy bleeding surface and all fibrotic tissue was removed from the surgical site. Again, the Bactisure was then utilized to flush the surgical site. Gloves were changed to prevent transmission of a floor cleaner wound with infection. Curette was then utilized to debride the remainder of the wound to the level of bone. Soft tissue cultures and pathology were obtained at this time. The leg was cleansed with sterile saline and dried. A dressing consisting of Betadine, Adaptic, 4x4, Kerlix, ABD and DEAN was applied to the left lower extremity. The patient then was returned to the preoperative care unit with vital signs stable and vascular status intact. The patient handled the anesthesia as well as the procedure without significant complication. Postoperative orders as indicated in the patient's inpatient chart.
[2023-03-07] MEDS ORDERED: Sodium Chloride 0.9% 500 ML 500 ML IV ONE (11:34)
[2023-03-07] MEDS: Lasix 40 MG PO SCH ×2 (13:01→16:40)
[2023-03-07] MEDS: Zaroxolyn 2.5 MG PO SCH (13:01)
[2023-03-07] MEDS: Ecotrin 325 MG PO SCH (13:01)
[2023-03-07] MEDS: Aldactone 25 MG PO SCH (13:01)
--- NOTE | 2023-03-07 13:19 | PCM.NOTE ---
Date and Time: 03/07/23 1308 Subjective Assessment: CBC this AM HGB =6.6 and 2 units PRBC ordered,2nd unit transfusing now. Stool heme negative. Debridement surgery left foot yesterday with minimal blood loss. C/O fatigue and some sob this morning but no chest pain. Chronic anemia usually Hgb 8 to 9 . Sugars coming down. Appetite is normal. Objective Exam General Appearance: no apparent distress, other (sitting up in electric wheelchair) Neurologic Exam: alert, oriented x 3 Skin Exam: normal color, warm, dry Respiratory Exam: normal breath sounds Cardiovascular Exam: regular rate/rhythm Extremity Exam: pedal edema, other (BLE wrapped,dressings in place- see Dr Duong op report) OBJECTIVE DATA Vital Signs: Vital Signs - 24 hr Temp Pulse Resp BP Pulse Ox 03/07/23 12:00 97.7 F 75 16 136/61 99 03/07/23 07:29 98.8 F 71 18 99/46 94 L 03/07/23 03:55 97.8 F 68 20 89/44 94 L 03/06/23 23:36 97.5 F 79 20 99/58 96 03/06/23 20:00 95 03/06/23 19:36 95 03/06/23 19:30 97.1 F 99 H 21 153/70 89 L 03/06/23 17:28 98.1 F 84 16 144/99 93 L 03/06/23 16:00 98.1 F 84 16 144/99 93 L 03/06/23 14:47 97.3 F 71 18 147/69 97 Pain Assessment - Last Documented Pain Intensity 0 Pain Scale Used 0-10 Pain Scale Intake and Output: Intake & Output 03/05/23 03/06/23 03/07/23 03/08/23 11:59 11:59 11:59 11:59 Intake Total 3460 Output Total 1400 Balance 2060 Weight 128.2 kg 128.2 kg Lab Results: Lab Results-Last 24 Hours 03/06/23 03/06/23 03/06/23 Range/Units 11:56 11:56 16:17 WBC (4.0-10.5) x10^3/uL RBC (4.1-5.6) x10^6/uL Hgb (12.5-18.0) g/dL Hct (42-50) % MCV (78-100) fL MCH (26-32) pg MCHC (32-36) g/dL RDW (11.5-14.0) % Plt Count (150-450) x10^3/uL MPV (7.5-11.0) fL Gran % (36.0-66.0) % Immature Gran % (Auto) (0.00-0.4) % Nucleat RBC Rel Count (0.00-0.1) % Eos # (Auto) (0-0.5) x10^3/uL Immature Gran # (Auto) (0.00-0.03) x10^3u/L Absolute Lymphs (auto) (1.0-4.6) x10^3/uL Absolute Monos (auto) (0.0-1.3) x10^3/uL Absolute Nucleated RBC (0.00-0.01) x10^3u/L Lymphocytes % (24.0-44.0) % Monocytes % (0.0-12.0) % Eosinophils % (0.00-5.0) % Basophils % (0.0-0.4) % Absolute Granulocytes (1.4-6.9) x10^3/uL Basophils # (0-0.4) x10^3/uL Sodium 140 (137-145) mmol/L Potassium 4.1 (3.5-5.1) mmol/L Chloride 98 (98-107) mmol/L Carbon Dioxide 33 H (22-30) mmol/L Anion Gap 13.0 (5-15) MEQ/L BUN 50 H (9-20) mg/dL Creatinine 1.49 H (0.66-1.25) mg/dL Estimated GFR 50.8 ML/MIN Glucose 200 H (74-106) mg/dL POC Glucometer 224 H (74 to 106) mg/dL Hemoglobin A1c 8.47 H (4.5-6.0) % Calcium 8.0 L (8.4-10.2) mg/dL Total Bilirubin 0.30 (0.2-1.3) mg/dL AST 13 L (17-59) U/L ALT 11 (0-50) U/L Alkaline Phosphatase 162 H (38-126) U/L Serum Total Protein 6.8 (6.3-8.2) g/dL Albumin 3.2 L (3.5-5.0) g/dL Stl Occult Blood (IFOB) (NEGATIVE) ABO Group Rh Factor Antibody Screen (NEGATIVE) Crossmatch (COMPATIBLE) 03/06/23 03/07/23 03/07/23 Range/Units 20:49 04:41 04:41 WBC 12.0 H (4.0-10.5) x10^3/uL RBC 2.38 L (4.1-5.6) x10^6/uL Hgb 6.6 L* (12.5-18.0) g/dL Hct 21.7 L (42-50) % MCV 91.2 (78-100) fL MCH 27.7 (26-32) pg MCHC 30.4 L (32-36) g/dL RDW 15.9 H (11.5-14.0) % Plt Count 320 (150-450) x10^3/uL MPV 10.1 (7.5-11.0) fL Gran % 76.1 H (36.0-66.0) % Immature Gran % (Auto) 0.6 H (0.00-0.4) % Nucleat RBC Rel Count 0.0 (0.00-0.1) % Eos # (Auto) 1.19 H (0-0.5) x10^3/uL Immature Gran # (Auto) 0.07 H (0.00-0.03) x10^3u/L Absolute Lymphs (auto) 0.84 L (1.0-4.6) x10^3/uL Absolute Monos (auto) 0.69 (0.0-1.3) x10^3/uL Absolute Nucleated RBC 0.00 (0.00-0.01) x10^3u/L Lymphocytes % 7.0 L (24.0-44.0) % Monocytes % 5.7 (0.0-12.0) % Eosinophils % 9.9 H (0.00-5.0) % Basophils % 0.7 (0.0-0.4) % Absolute Granulocytes 9.17 H (1.4-6.9) x10^3/uL Basophils # 0.08 (0-0.4) x10^3/uL Sodium 138 (137-145) mmol/L Potassium 4.4 (3.5-5.1) mmol/L Chloride 96 L (98-107) mmol/L Carbon Dioxide 36 H (22-30) mmol/L Anion Gap 10.9 (5-15) MEQ/L BUN 48 H (9-20) mg/dL Creatinine 1.80 H (0.66-1.25) mg/dL Estimated GFR 40.8 ML/MIN Glucose 129 H (74-106) mg/dL POC Glucometer 242 H (74 to 106) mg/dL Hemoglobin A1c (4.5-6.0) % Calcium 7.9 L (8.4-10.2) mg/dL Total Bilirubin 0.30 (0.2-1.3) mg/dL AST 12 L (17-59) U/L ALT 10 (0-50) U/L Alkaline Phosphatase 138 H (38-126) U/L Serum Total Protein 6.2 L (6.3-8.2) g/dL Albumin 2.9 L (3.5-5.0) g/dL Stl Occult Blood (IFOB) (NEGATIVE) ABO Group Rh Factor Antibody Screen (NEGATIVE) Crossmatch (COMPATIBLE) 03/07/23 03/07/23 03/07/23 Range/Units 06:15 06:15 06:15 WBC (4.0-10.5) x10^3/uL RBC (4.1-5.6) x10^6/uL Hgb 6.5 L* (12.5-18.0) g/dL Hct (42-50) % MCV (78-100) fL MCH (26-32) pg MCHC (32-36) g/dL RDW (11.5-14.0) % Plt Count (150-450) x10^3/uL MPV (7.5-11.0) fL Gran % (36.0-66.0) % Immature Gran % (Auto) (0.00-0.4) % Nucleat RBC Rel Count (0.00-0.1) % Eos # (Auto) (0-0.5) x10^3/uL Immature Gran # (Auto) (0.00-0.03) x10^3u/L Absolute Lymphs (auto) (1.0-4.6) x10^3/uL Absolute Monos (auto) (0.0-1.3) x10^3/uL Absolute Nucleated RBC (0.00-0.01) x10^3u/L Lymphocytes % (24.0-44.0) % Monocytes % (0.0-12.0) % Eosinophils % (0.00-5.0) % Basophils % (0.0-0.4) % Absolute Granulocytes (1.4-6.9) x10^3/uL Basophils # (0-0.4) x10^3/uL Sodium (137-145) mmol/L Potassium (3.5-5.1) mmol/L Chloride (98-107) mmol/L Carbon Dioxide (22-30) mmol/L Anion Gap (5-15) MEQ/L BUN (9-20) mg/dL Creatinine (0.66-1.25) mg/dL Estimated GFR ML/MIN Glucose (74-106) mg/dL POC Glucometer (74 to 106) mg/dL Hemoglobin A1c (4.5-6.0) % Calcium (8.4-10.2) mg/dL Total Bilirubin (0.2-1.3) mg/dL AST (17-59) U/L ALT (0-50) U/L Alkaline Phosphatase (38-126) U/L Serum Total Protein (6.3-8.2) g/dL Albumin (3.5-5.0) g/dL Stl Occult Blood (IFOB) (NEGATIVE) ABO Group O Rh Factor POSITIVE Antibody Screen NEGATIVE (NEGATIVE) Crossmatch COMPATIBLE (COMPATIBLE) 03/07/23 03/07/23 03/07/23 Range/Units 06:15 06:49 10:30 WBC (4.0-10.5) x10^3/uL RBC (4.1-5.6) x10^6/uL Hgb (12.5-18.0) g/dL Hct (42-50) % MCV (78-100) fL MCH (26-32) pg MCHC (32-36) g/dL RDW (11.5-14.0) % Plt Count (150-450) x10^3/uL MPV (7.5-11.0) fL Gran % (36.0-66.0) % Immature Gran % (Auto) (0.00-0.4) % Nucleat RBC Rel Count (0.00-0.1) % Eos # (Auto) (0-0.5) x10^3/uL Immature Gran # (Auto) (0.00-0.03) x10^3u/L Absolute Lymphs (auto) (1.0-4.6) x10^3/uL Absolute Monos (auto) (0.0-1.3) x10^3/uL Absolute Nucleated RBC (0.00-0.01) x10^3u/L Lymphocytes % (24.0-44.0) % Monocytes % (0.0-12.0) % Eosinophils % (0.00-5.0) % Basophils % (0.0-0.4) % Absolute Granulocytes (1.4-6.9) x10^3/uL Basophils # (0-0.4) x10^3/uL Sodium (137-145) mmol/L Potassium (3.5-5.1) mmol/L Chloride (98-107) mmol/L Carbon Dioxide (22-30) mmol/L Anion Gap (5-15) MEQ/L BUN (9-20) mg/dL Creatinine (0.66-1.25) mg/dL Estimated GFR ML/MIN Glucose (74-106) mg/dL POC Glucometer 128 H 170 H (74 to 106) mg/dL Hemoglobin A1c (4.5-6.0) % Calcium (8.4-10.2) mg/dL Total Bilirubin (0.2-1.3) mg/dL AST (17-59) U/L ALT (0-50) U/L Alkaline Phosphatase (38-126) U/L Serum Total Protein (6.3-8.2) g/dL Albumin (3.5-5.0) g/dL Stl Occult Blood (IFOB) (NEGATIVE) ABO Group Rh Factor Antibody Screen (NEGATIVE) Crossmatch COMPATIBLE (COMPATIBLE) 03/07/23 Range/Units 11:16 WBC (4.0-10.5) x10^3/uL RBC (4.1-5.6) x10^6/uL Hgb (12.5-18.0) g/dL Hct (42-50) % MCV (78-100) fL MCH (26-32) pg MCHC (32-36) g/dL RDW (11.5-14.0) % Plt Count (150-450) x10^3/uL MPV (7.5-11.0) fL Gran % (36.0-66.0) % Immature Gran % (Auto) (0.00-0.4) % Nucleat RBC Rel Count (0.00-0.1) % Eos # (Auto) (0-0.5) x10^3/uL Immature Gran # (Auto) (0.00-0.03) x10^3u/L Absolute Lymphs (auto) (1.0-4.6) x10^3/uL Absolute Monos (auto) (0.0-1.3) x10^3/uL Absolute Nucleated RBC (0.00-0.01) x10^3u/L Lymphocytes % (24.0-44.0) % Monocytes % (0.0-12.0) % Eosinophils % (0.00-5.0) % Basophils % (0.0-0.4) % Absolute Granulocytes (1.4-6.9) x10^3/uL Basophils # (0-0.4) x10^3/uL Sodium (137-145) mmol/L Potassium (3.5-5.1) mmol/L Chloride (98-107) mmol/L Carbon Dioxide (22-30) mmol/L Anion Gap (5-15) MEQ/L BUN (9-20) mg/dL Creatinine (0.66-1.25) mg/dL Estimated GFR ML/MIN Glucose (74-106) mg/dL POC Glucometer (74 to 106) mg/dL Hemoglobin A1c (4.5-6.0) % Calcium (8.4-10.2) mg/dL Total Bilirubin (0.2-1.3) mg/dL AST (17-59) U/L ALT (0-50) U/L Alkaline Phosphatase (38-126) U/L Serum Total Protein (6.3-8.2) g/dL Albumin (3.5-5.0) g/dL Stl Occult Blood (IFOB) NEGATIVE (NEGATIVE) ABO Group Rh Factor Antibody Screen (NEGATIVE) Crossmatch (COMPATIBLE) Multi-Disciplinary Progress Notes: Multi-Disciplinary Progress Notes 03/07/23 10:27 Case Management Note by Amita Washington PATIENT HAS [facility]. THEY (JOSE [facility]) WERE NOTIFIED THAT PATIENT IS HERE OBS. THEY WILL NEED TO BE NOTIFIED AT TIME OF DC AT . THEY WILL NEED FAXED THE DC INSTRUCTION, DC MED LIST, AND SC SUMMARY (IF AVAILABLE) [phone]. IF NEEDS IV ANTIBIOTICS AT [place], [facility] IS CURRENT PROVIDER. WILL NEED NOTIFIED. Initialized on 03/07/23 10:27 - END OF NOTE 03/06/23 13:43 Pharmacy Note by Marshall Gustafson Pharmacokinetic dosing service 03/06/23 @ 4070 Objective: Patient: [place] Floor: [address]1 Age: 62 yo Serum creatinine: 1.49 mg/dL Height: 69 Inches Weight (kg): 128 Assessment: IBW (kg): 70.70 Dosing wt(kg): 128 Estimated Creatinine clearance (ml/min): 51.4 CRCL method: Cockcroft and Gault using ibw(default). Drug selected: Vancomycin Loading dose (mg): 0 Vd (liters): 89.6 (factor used: 0.7 L/kg) Dalton (hr-1): 0.047 Half life (hrs): 14.75 Recommended dose: 1000 mg Interval: 12 hrs Infusion time (hrs): 1.5 Predicted peak (mcg/mL): 25.0 Predicted trough (mcg/mL): 15.26 Total body weight is being used for vancomycin dosing. Renal function is stable Recommendations: Give Vancomycin 1000 mg q 12 hrs with an expected Cpeak of 25.0 mcg/ml and an expected Ctrough of 15.26 mcg/ml Thank you for the consult, will continue to follow. Signature: JCB Initialized on 03/06/23 13:43 - END OF NOTE 03/06/23 13:42 Pharmacy Note by Marshall Gustafson DOSING REQUESTED FOR ZOSYN FOR THIS PATIENT. CRCL IS 51 ML/MIN. NO ADJUSTMENT NEEDED FROM USUAL DOSE. LEXICOMP RECOMMENDS 3.375 Q6H OR 4.5 Q8H. WENT WITH 3.375 Q6H, THAT ONE HAS RECOMMENDATIONS FOR ADJUSTMENT IF CRCL GOES LOWER. Initialized on 03/06/23 13:42 - END OF NOTE Assessment/Plan (1) Diabetic foot ulcer associated with type 2 diabetes mellitus, with fat layer exposed Current Visit: Yes Status: Acute Code(s): E11.621 - TYPE 2 DIABETES MELLITUS WITH FOOT ULCER; L97.502 - NON-PRS CHRONIC ULCER OTH PRT UNSP FOOT W FAT LAYER EXPOSED (2) Venous insufficiency (chronic) (peripheral) Current Visit: Yes Status: Acute (3) DM2 (diabetes mellitus, type 2) Current Visit: No Status: Chronic Qualifiers: Diabetes mellitus penitentiary insulin use: with penitentiary use Assessment & Plan: monitor,patient noncompliant at home (4) HTN (hypertension) Current Visit: No Status: Chronic Assessment & Plan: monitor Code(s): I10 - ESSENTIAL (PRIMARY) HYPERTENSION
[2023-03-07 16:14] LABS: Hematocrit 29.8 % (42-50)
--- NOTE | 2023-03-07 16:26 | PCM.NOTE ---
Date and Time: 03/07/231617 Subjective Assessment: Postop day #1 status post incision and drainage with bone debridement left lower extremity to foot and ankle. Patient progressing at this time with minimal indications of clinical infection. Patient indicates he does feel better being on the Vanco Zosyn combination than he was with on the Cubicin. Patient indicates that he was unable to get comfortable overnight and was slightly lethargic. Hemoglobin drawn this morning demonstrated 6.5 for which 2 units were ordered. No redraw has been performed at this time however patient's symptomatology has improved. Patient has been able to get comfortable and has chosen to stay in his chair with his legs in a dependent position. Patient does have some blistering and significantly swollen legs to the bilateral lower extremity. Patient denies any current constitutional symptoms. He denies any other pedal complaints at this time Physical Exam - General General Appearance: no apparent distress, obese - Neuro Neurologic: Epicritic and protopathic (absent) - Vascular Peripheral Pulses: Posterior tibialis: 2+, Dorsalis-Pedis: 2+ Edema: Pitting Edema Degree: 2+ Skin: Supple, not atrophic - Muscular Muscle Strength: 5/5 on all 4 quadrants - Narrative Narrative Physical Exam: Podiatry Physical Exam OBJECTIVE DATA Vital Signs: Vital Signs - 24 hr Temp Pulse Resp BP Pulse Ox 03/07/23 15:26 97.5 F 76 16 145/65 99 03/07/23 15:11 99 03/07/23 12:00 97.7 F 75 16 136/61 99 03/07/23 07:29 98.8 F 71 18 99/46 94 L 03/07/23 03:55 97.8 F 68 20 89/44 94 L 03/06/23 23:36 97.5 F 79 20 99/58 96 03/06/23 20:00 95 03/06/23 19:36 95 03/06/23 19:30 97.1 F 99 H 21 153/70 89 L 03/06/23 17:28 98.1 F 84 16 144/99 93 L Pain Assessment - Last Documented Pain Intensity 0 Pain Scale Used 0-10 Pain Scale Intake and Output: Intake & Output 03/05/23 03/06/23 03/07/23 03/08/23 11:59 11:59 11:59 11:59 Intake Total 3460 240 Output Total 1400 1 Balance 2060 239 Weight 128.2 kg 128.2 kg Lab Results: Lab Results-Last 24 Hours 03/06/23 03/06/23 03/06/23 Range/Units 11:56 12:02 16:17 WBC (4.0-10.5) x10^3/uL RBC (4.1-5.6) x10^6/uL Hgb (12.5-18.0) g/dL Hct (42-50) % MCV (78-100) fL MCH (26-32) pg MCHC (32-36) g/dL RDW (11.5-14.0) % Plt Count (150-450) x10^3/uL MPV (7.5-11.0) fL Gran % (36.0-66.0) % Immature Gran % (Auto) (0.00-0.4) % Nucleat RBC Rel Count (0.00-0.1) % Eos # (Auto) (0-0.5) x10^3/uL Immature Gran # (Auto) (0.00-0.03) x10^3u/L Absolute Lymphs (auto) (1.0-4.6) x10^3/uL Absolute Monos (auto) (0.0-1.3) x10^3/uL Absolute Nucleated RBC (0.00-0.01) x10^3u/L Lymphocytes % (24.0-44.0) % Monocytes % (0.0-12.0) % Eosinophils % (0.00-5.0) % Basophils % (0.0-0.4) % Absolute Granulocytes (1.4-6.9) x10^3/uL Basophils # (0-0.4) x10^3/uL Sodium (137-145) mmol/L Potassium (3.5-5.1) mmol/L Chloride (98-107) mmol/L Carbon Dioxide (22-30) mmol/L Anion Gap (5-15) MEQ/L BUN (9-20) mg/dL Creatinine (0.66-1.25) mg/dL Estimated GFR ML/MIN Glucose (74-106) mg/dL POC Glucometer 224 H (74 to 106) mg/dL Hemoglobin A1c 8.47 H (4.5-6.0) % Calcium (8.4-10.2) mg/dL Total Bilirubin (0.2-1.3) mg/dL AST (17-59) U/L ALT (0-50) U/L Alkaline Phosphatase (38-126) U/L C-Reactive Prot, Quant 65 H (0-10) mg/L Serum Total Protein (6.3-8.2) g/dL Albumin (3.5-5.0) g/dL Stl Occult Blood (IFOB) (NEGATIVE) ABO Group Rh Factor Antibody Screen (NEGATIVE) Crossmatch (COMPATIBLE) 03/06/23 03/07/23 03/07/23 Range/Units 20:49 04:41 04:41 WBC 12.0 H (4.0-10.5) x10^3/uL RBC 2.38 L (4.1-5.6) x10^6/uL Hgb 6.6 L* (12.5-18.0) g/dL Hct 21.7 L (42-50) % MCV 91.2 (78-100) fL MCH 27.7 (26-32) pg MCHC 30.4 L (32-36) g/dL RDW 15.9 H (11.5-14.0) % Plt Count 320 (150-450) x10^3/uL MPV 10.1 (7.5-11.0) fL Gran % 76.1 H (36.0-66.0) % Immature Gran % (Auto) 0.6 H (0.00-0.4) % Nucleat RBC Rel Count 0.0 (0.00-0.1) % Eos # (Auto) 1.19 H (0-0.5) x10^3/uL Immature Gran # (Auto) 0.07 H (0.00-0.03) x10^3u/L Absolute Lymphs (auto) 0.84 L (1.0-4.6) x10^3/uL Absolute Monos (auto) 0.69 (0.0-1.3) x10^3/uL Absolute Nucleated RBC 0.00 (0.00-0.01) x10^3u/L Lymphocytes % 7.0 L (24.0-44.0) % Monocytes % 5.7 (0.0-12.0) % Eosinophils % 9.9 H (0.00-5.0) % Basophils % 0.7 (0.0-0.4) % Absolute Granulocytes 9.17 H (1.4-6.9) x10^3/uL Basophils # 0.08 (0-0.4) x10^3/uL Sodium 138 (137-145) mmol/L Potassium 4.4 (3.5-5.1) mmol/L Chloride 96 L (98-107) mmol/L Carbon Dioxide 36 H (22-30) mmol/L Anion Gap 10.9 (5-15) MEQ/L BUN 48 H (9-20) mg/dL Creatinine 1.80 H (0.66-1.25) mg/dL Estimated GFR 40.8 ML/MIN Glucose 129 H (74-106) mg/dL POC Glucometer 242 H (74 to 106) mg/dL Hemoglobin A1c (4.5-6.0) % Calcium 7.9 L (8.4-10.2) mg/dL Total Bilirubin 0.30 (0.2-1.3) mg/dL AST 12 L (17-59) U/L ALT 10 (0-50) U/L Alkaline Phosphatase 138 H (38-126) U/L C-Reactive Prot, Quant (0-10) mg/L Serum Total Protein 6.2 L (6.3-8.2) g/dL Albumin 2.9 L (3.5-5.0) g/dL Stl Occult Blood (IFOB) (NEGATIVE) ABO Group Rh Factor Antibody Screen (NEGATIVE) Crossmatch (COMPATIBLE) 03/07/23 03/07/23 03/07/23 Range/Units 06:15 06:15 06:15 WBC (4.0-10.5) x10^3/uL RBC (4.1-5.6) x10^6/uL Hgb 6.5 L* (12.5-18.0) g/dL Hct (42-50) % MCV (78-100) fL MCH (26-32) pg MCHC (32-36) g/dL RDW (11.5-14.0) % Plt Count (150-450) x10^3/uL MPV (7.5-11.0) fL Gran % (36.0-66.0) % Immature Gran % (Auto) (0.00-0.4) % Nucleat RBC Rel Count (0.00-0.1) % Eos # (Auto) (0-0.5) x10^3/uL Immature Gran # (Auto) (0.00-0.03) x10^3u/L Absolute Lymphs (auto) (1.0-4.6) x10^3/uL Absolute Monos (auto) (0.0-1.3) x10^3/uL Absolute Nucleated RBC (0.00-0.01) x10^3u/L Lymphocytes % (24.0-44.0) % Monocytes % (0.0-12.0) % Eosinophils % (0.00-5.0) % Basophils % (0.0-0.4) % Absolute Granulocytes (1.4-6.9) x10^3/uL Basophils # (0-0.4) x10^3/uL Sodium (137-145) mmol/L Potassium (3.5-5.1) mmol/L Chloride (98-107) mmol/L Carbon Dioxide (22-30) mmol/L Anion Gap (5-15) MEQ/L BUN (9-20) mg/dL Creatinine (0.66-1.25) mg/dL Estimated GFR ML/MIN Glucose (74-106) mg/dL POC Glucometer (74 to 106) mg/dL Hemoglobin A1c (4.5-6.0) % Calcium (8.4-10.2) mg/dL Total Bilirubin (0.2-1.3) mg/dL AST (17-59) U/L ALT (0-50) U/L Alkaline Phosphatase (38-126) U/L C-Reactive Prot, Quant (0-10) mg/L Serum Total Protein (6.3-8.2) g/dL Albumin (3.5-5.0) g/dL Stl Occult Blood (IFOB) (NEGATIVE) ABO Group O Rh Factor POSITIVE Antibody Screen NEGATIVE (NEGATIVE) Crossmatch COMPATIBLE (COMPATIBLE) 03/07/23 03/07/23 03/07/23 Range/Units 06:15 06:49 10:30 WBC (4.0-10.5) x10^3/uL RBC (4.1-5.6) x10^6/uL Hgb (12.5-18.0) g/dL Hct (42-50) % MCV (78-100) fL MCH (26-32) pg MCHC (32-36) g/dL RDW (11.5-14.0) % Plt Count (150-450) x10^3/uL MPV (7.5-11.0) fL Gran % (36.0-66.0) % Immature Gran % (Auto) (0.00-0.4) % Nucleat RBC Rel Count (0.00-0.1) % Eos # (Auto) (0-0.5) x10^3/uL Immature Gran # (Auto) (0.00-0.03) x10^3u/L Absolute Lymphs (auto) (1.0-4.6) x10^3/uL Absolute Monos (auto) (0.0-1.3) x10^3/uL Absolute Nucleated RBC (0.00-0.01) x10^3u/L Lymphocytes % (24.0-44.0) % Monocytes % (0.0-12.0) % Eosinophils % (0.00-5.0) % Basophils % (0.0-0.4) % Absolute Granulocytes (1.4-6.9) x10^3/uL Basophils # (0-0.4) x10^3/uL Sodium (137-145) mmol/L Potassium (3.5-5.1) mmol/L Chloride (98-107) mmol/L Carbon Dioxide (22-30) mmol/L Anion Gap (5-15) MEQ/L BUN (9-20) mg/dL Creatinine (0.66-1.25) mg/dL Estimated GFR ML/MIN Glucose (74-106) mg/dL POC Glucometer 128 H 170 H (74 to 106) mg/dL Hemoglobin A1c (4.5-6.0) % Calcium (8.4-10.2) mg/dL Total Bilirubin (0.2-1.3) mg/dL AST (17-59) U/L ALT (0-50) U/L Alkaline Phosphatase (38-126) U/L C-Reactive Prot, Quant (0-10) mg/L Serum Total Protein (6.3-8.2) g/dL Albumin (3.5-5.0) g/dL Stl Occult Blood (IFOB) (NEGATIVE) ABO Group Rh Factor Antibody Screen (NEGATIVE) Crossmatch COMPATIBLE (COMPATIBLE) 03/07/23 03/07/23 Range/Units 11:16 16:13 WBC (4.0-10.5) x10^3/uL RBC (4.1-5.6) x10^6/uL Hgb (12.5-18.0) g/dL Hct (42-50) % MCV (78-100) fL MCH (26-32) pg MCHC (32-36) g/dL RDW (11.5-14.0) % Plt Count (150-450) x10^3/uL MPV (7.5-11.0) fL Gran % (36.0-66.0) % Immature Gran % (Auto) (0.00-0.4) % Nucleat RBC Rel Count (0.00-0.1) % Eos # (Auto) (0-0.5) x10^3/uL Immature Gran # (Auto) (0.00-0.03) x10^3u/L Absolute Lymphs (auto) (1.0-4.6) x10^3/uL Absolute Monos (auto) (0.0-1.3) x10^3/uL Absolute Nucleated RBC (0.00-0.01) x10^3u/L Lymphocytes % (24.0-44.0) % Monocytes % (0.0-12.0) % Eosinophils % (0.00-5.0) % Basophils % (0.0-0.4) % Absolute Granulocytes (1.4-6.9) x10^3/uL Basophils # (0-0.4) x10^3/uL Sodium (137-145) mmol/L Potassium (3.5-5.1) mmol/L Chloride (98-107) mmol/L Carbon Dioxide (22-30) mmol/L Anion Gap (5-15) MEQ/L BUN (9-20) mg/dL Creatinine (0.66-1.25) mg/dL Estimated GFR ML/MIN Glucose (74-106) mg/dL POC Glucometer 162 H (74 to 106) mg/dL Hemoglobin A1c (4.5-6.0) % Calcium (8.4-10.2) mg/dL Total Bilirubin (0.2-1.3) mg/dL AST (17-59) U/L ALT (0-50) U/L Alkaline Phosphatase (38-126) U/L C-Reactive Prot, Quant (0-10) mg/L Serum Total Protein (6.3-8.2) g/dL Albumin (3.5-5.0) g/dL Stl Occult Blood (IFOB) NEGATIVE (NEGATIVE) ABO Group Rh Factor Antibody Screen (NEGATIVE) Crossmatch (COMPATIBLE) Multi-Disciplinary Progress Notes: Multi-Disciplinary Progress Notes 03/07/23 15:16 Physical Therapy Note by Donal(L#[id number])Danielle PT. HAS NOT BEEN AMBULATORY FOR QUITE SOME TIME AND USES APOWER W/C FOR MOBILITY. O.T. WILL FOLLOW PT. FOR TRANSFER TRAINING AND ADAPTIVE EQUIPMENT RECOMMENDATIONS AND EDUCATION. Initialized on 03/07/23 15:16 - END OF NOTE 03/07/23 13:21 Case Management Note by Amita Washington S/W [facility] ([facility] [phone]) ABOUT IV ANTIBIOTIC FOR PATIENT. PATIENT HAD BEEN ON MEROPENEM 2GM Q 12 HR AT HOME PRIOR TO HOSPITAL ADMIT. FAX ORDER FOR ANY HOME IV ANTIBIOTICS TO [facility] AT [phone] [facility]. Initialized on 03/07/23 13:21 - END OF NOTE 03/07/23 10:27 Case Management Note by Amita Washington PATIENT HAS [facility]. THEY (JOSE G) WERE NOTIFIED THAT PATIENT IS HERE OBS. THEY WILL NEED TO BE NOTIFIED AT TIME OF DC AT . THEY WILL NEED FAXED THE DC INSTRUCTION, DC MED LIST, AND SC SUMMARY (IF AVAILABLE) [phone]. IF NEEDS IV ANTIBIOTICS AT [place], [facility] IS CURRENT PROVIDER. WILL NEED NOTIFIED. Initialized on 03/07/23 10:27 - END OF NOTE Assessment/Plan (1) Venous insufficiency (chronic) (peripheral) Current Visit: Yes Status: Acute Assessment & Plan: Patient examination evaluation. Patient is progressing postop day status post incision and drainage with bone debridement to the left lower extremity. Patient has successfully infused 2 units of blood at this time and has had some resolution of his symptoms. No redraw has been obtained at this time. Will hold off for now and reassess on redraw. Patient's white blood cell count measured to be at 12 this a.m. This is worse than how he has been performing at home however patient's symptomatology improved hopeful for when next CBC to show a positive trend towards normalization. Continue vancomycin and Zosyn for now Awaiting intraoperative cultures however patient consistently has grown E. coli in the last several weeks. Will consider plan for repeat washout tomorrow or with consideration for split-thickness skin graft harvest from left thigh to left leg on Monday if infection appears to have cleared. Prevalon boot to left lower extremity to offload pressure PICC line to remain in place at this time with decision to be held based on culture and sensitivity. Continue pain prophylaxis Continue DVT prophylaxis Continue nonweightbearing to the left lower extremity Will follow closely Unna boots applied to the bilateral lower extremity and dressings changed due to venous insufficiency and localized edema. (2) Diabetic foot ulcer associated with type 2 diabetes mellitus, with fat layer exposed Current Visit: Yes Status: Acute Code(s): E11.621 - TYPE 2 DIABETES MELLITUS WITH FOOT ULCER; L97.502 - NON-PRS CHRONIC ULCER OTH PRT UNSP FOOT W FAT LAYER EXPOSED (3) Acute on chronic renal insufficiency Current Visit: No Status: Acute Code(s): N28.9 - DISORDER OF KIDNEY AND URETER, UNSPECIFIED; N18.9 - CHRONIC KIDNEY DISEASE, UNSPECIFIED (4) Charcot Omaira Tooth muscular atrophy Current Visit: No Status: Acute Code(s): G60.0 - HEREDITARY MOTOR AND SENSORY NEUROPATHY (5) Neuropathy, peripheral, hereditary Current Visit: No Status: Acute Code(s): G60.9 - HEREDITARY AND IDIOPATHIC NEUROPATHY, UNSPECIFIED (6) Venous (peripheral) insufficiency Current Visit: No Status: Acute Code(s): I87.2 - VENOUS INSUFFICIENCY (CHRONIC) (PERIPHERAL) (7) Localized edema Current Visit: No Status: Acute Code(s): R60.0 - LOCALIZED EDEMA (8) DM2 (diabetes mellitus, type 2) Current Visit: No Status: Chronic Qualifiers: Diabetes mellitus shelter insulin use: with intermediate manager use (9) Diabetic foot ulcer associated with type 2 diabetes mellitus, with fat layer exposed Current Visit: No Status: Chronic Qualifiers: Diabetic foot ulcer location: heel Laterality: left Qualified Code(s): E11.621 - Type 2 diabetes mellitus with foot ulcer; L97.422 - Non-pressure chronic ulcer of left heel and midfoot with fat layer exposed Code(s): E11.621 - TYPE 2 DIABETES MELLITUS WITH FOOT ULCER; L97.502 - NON-PRS CHRONIC ULCER OTH PRT UNSP FOOT W FAT LAYER EXPOSED
[2023-03-07 16:56] LABS: Hemoglobin 8.8 g/dL (12.5-18.0)
[2023-03-07] MEDS: NORCO 7.5/325 MG TAB PO PRN (18:12)
[2023-03-07] MEDS ORDERED: NORCO 7.5/325 MG TAB PO PRN (19:30)
[2023-03-07] MEDS: Cyclobenzaprine 10 MG PO SCH (21:26)
[2023-03-07] MEDS: Flomax 0.4 MG PO SCH (21:26)
[2023-03-07] MEDS: ISOPTIN SR PO SCH (21:26)
[2023-03-07] MEDS: Januvia 50 MG PO SCH (21:26)
[2023-03-07] MEDS: Lopressor 25MG Tab PO SCH (21:27)
[2023-03-07] MEDS: ZOCOR 20MG PO SCH (21:27)
[2023-03-07] MEDS ORDERED: TROUGH DRUG LEVELS IJ ONE (21:30)
[2023-03-07] MEDS: Lantus Insulin SQ SCH (22:10)
[2023-03-08] MEDS: PIPERACILLIN/TAZOBACTAM 3.375 GM in Sodium Chloride 100ML MINI-BAG PLUS 100 ML IV SCH ×5 (00:08→23:33)
[2023-03-08 05:38] LABS: Absolute Neutrophil Ct (ANC) 6.92 x10^3/uL (1.4-6.9); BASOPHIL % 0.9 % (0.0-0.4); Basophil (Absolute #) 0.09 x10^3/uL (0-0.4); Eosinophil % 12.1 % (0.00-5.0); Eosinophil (Absolute #) 1.22 x10^3/uL (0-0.5); Hematocrit 26.7 % (42-50); IMMATURE GRAN # 0.07 x10^3u/L (0.00-0.03); IMMATURE GRAN % 0.7 % (0.00-0.4); Lymphocyte (Absolute #) 1.16 x10^3/uL (1.0-4.6); Lymphocytes % 11.5 % (24.0-44.0); Mean Cell Volume 92.4 fL (78-100); Mean Corpuscular Hemoglobin 27.7 pg (26-32); Mean Platelet Volume 9.9 fL (7.5-11.0); Monocyte (Absolute #) 0.62 x10^3/uL (0.0-1.3); Monocytes % 6.2 % (0.0-12.0); Neutrophil % 68.6 % (36.0-66.0); Platelet Count 314 x10^3/uL (150-450); Red Blood Count 2.89 x10^6/uL (4.1-5.6); Red Cell Distribution Width 15.8 % (11.5-14.0); White Blood Count 10.1 x10^3/uL (4.0-10.5)
[2023-03-08 06:57] LABS: ALBUMIN 3.1 g/dL (3.5-5.0); ANION GAP 12.4 MEQ/L (5-15); BILIRUBIN,TOTAL 0.4 mg/dL (0.2-1.3); Calcium 7.9 mg/dL (8.4-10.2); Creatinine 1 2.17 mg/dL (0.66-1.25); EST GLOMERULAR FILTRATION RATE 32.9 ML/MIN; Potassium 4.6 mmol/L (3.5-5.1); Total Protein 6.6 g/dL (6.3-8.2)
[2023-03-08] MEDS ORDERED: NORCO 7.5/325 MG TAB PO PRN (06:58)
[2023-03-08] MEDS ORDERED: Lasix 40 MG/4 ML IV SCH (10:00)
--- NOTE | 2023-03-08 10:29 | XRAY ---
Indication: Cough and crackles. Comparison: January 07, 2022 Portable chest remains underinflated with mild bibasilar subsegmental atelectasis/scarring. Remaining heart and upper lungs unremarkable. New right arm PICC line with tip projecting over SVC. Bony thorax intact. No acute findings.
[2023-03-08] MEDS: FEOSOL 325 MG PO SCH ×2 (10:59→21:21)
[2023-03-08] MEDS: Singulair 10 MG PO SCH (10:59)
[2023-03-08] MEDS: Glucophage 500 MG PO SCH ×2 (10:59→17:34)
[2023-03-08] MEDS: Ecotrin 325 MG PO SCH (10:59)
[2023-03-08] MEDS: Glucotrol 5 MG PO SCH ×2 (10:59→17:33)
[2023-03-08] MEDS: Aldactone 25 MG PO SCH (10:59)
[2023-03-08] MEDS: Protonix 40MG Tablet PO SCH (10:59)
[2023-03-08] MEDS: Zaroxolyn 2.5 MG PO SCH (10:59)
[2023-03-08] MEDS: NEURONTIN PO SCH ×3 (10:59→21:21)
[2023-03-08] MEDS: VANCOMYCIN 1 GRAM/200 ML BAG 1 GM/200 ML PIGGYBACK IV SCH ×2 (10:59→22:47)
[2023-03-08] MEDS: Furosemide 100mg/10 ml Vial IV SCH ×2 (10:59→17:34)
--- NOTE | 2023-03-08 17:03 | PCM.NOTE ---
Date and Time: 03/08/23 170 Subjective Assessment: Postop day #2 status post incision and drainage with bone debridement left lower extremity to foot and ankle. Patient progressing at this time with minimal indications of clinical infection. Patient indicates he does feel better being on the Vanco Zosyn combination. Patient indicates that he was unable to get comfortable overnight and was slightly lethargic. Patient does have some blistering and significantly swollen legs to the bilateral lower extremity. Patient denies any current constitutional symptoms. He denies any other pedal complaints at this time Physical Exam - Narrative Narrative Physical Exam: Podiatry Physical Exam OBJECTIVE DATA Vital Signs: Vital Signs - 24 hr Temp Pulse Resp BP Pulse Ox 03/08/23 16:00 97.6 F 71 18 145/75 97 03/08/23 11:52 97.5 F 77 18 144/63 95 03/08/23 08:00 97.3 F 75 18 121/77 91 L 03/08/23 04:00 97.6 F 58 L 19 95/53 95 03/08/23 00:00 97.8 F 78 18 121/62 96 03/07/23 20:00 97.6 F 81 21 156/66 95 03/07/23 19:48 98 Pain Assessment - Last Documented Pain Intensity 0 [facility] Intake and Output: Intake & Output 03/06/23 03/07/23 03/08/23 03/09/23 11:59 11:59 11:59 11:59 Intake Total 3460 3920 480 Output Total 1400 1 Balance 2060 3919 480 Weight 128.2 kg 128.2 kg 132.1 kg 132.1 kg Lab Results: Lab Results-Last 24 Hours 03/07/23 03/07/23 03/07/23 Range/Units 16:05 21:30 21:49 WBC (4.0-10.5) x10^3/uL RBC (4.1-5.6) x10^6/uL Hgb (12.5-18.0) g/dL Hct (42-50) % MCV (78-100) fL MCH (26-32) pg MCHC (32-36) g/dL RDW (11.5-14.0) % Plt Count (150-450) x10^3/uL MPV (7.5-11.0) fL Gran % (36.0-66.0) % Immature Gran % (Auto) (0.00-0.4) % Nucleat RBC Rel Count (0.00-0.1) % Eos # (Auto) (0-0.5) x10^3/uL Immature Gran # (Auto) (0.00-0.03) x10^3u/L Absolute Lymphs (auto) (1.0-4.6) x10^3/uL Absolute Monos (auto) (0.0-1.3) x10^3/uL Absolute Nucleated RBC (0.00-0.01) x10^3u/L Lymphocytes % (24.0-44.0) % Monocytes % (0.0-12.0) % Eosinophils % (0.00-5.0) % Basophils % (0.0-0.4) % Absolute Granulocytes (1.4-6.9) x10^3/uL Basophils # (0-0.4) x10^3/uL Sodium (137-145) mmol/L Potassium (3.5-5.1) mmol/L Chloride (98-107) mmol/L Carbon Dioxide (22-30) mmol/L Anion Gap (5-15) MEQ/L BUN (9-20) mg/dL Creatinine (0.66-1.25) mg/dL Estimated GFR ML/MIN Glucose (74-106) mg/dL POC Glucometer 121 H (74 to 106) mg/dL Calcium (8.4-10.2) mg/dL Iron (49-181) ug/dL Total Bilirubin (0.2-1.3) mg/dL AST (17-59) U/L ALT (0-50) U/L Alkaline Phosphatase (38-126) U/L NT-Pro-B Natriuret Pep 1140 (<300) pg/mL Serum Total Protein (6.3-8.2) g/dL Albumin (3.5-5.0) g/dL Vancomycin Trough 18.22 (10-20) ug/mL 03/08/23 03/08/23 03/08/23 Range/Units 04:52 04:52 04:52 WBC 10.1 (4.0-10.5) x10^3/uL RBC 2.89 L (4.1-5.6) x10^6/uL Hgb 8.0 L (12.5-18.0) g/dL Hct 26.7 L (42-50) % MCV 92.4 (78-100) fL MCH 27.7 (26-32) pg MCHC 30.0 L (32-36) g/dL RDW 15.8 H (11.5-14.0) % Plt Count 314 (150-450) x10^3/uL MPV 9.9 (7.5-11.0) fL Gran % 68.6 H (36.0-66.0) % Immature Gran % (Auto) 0.7 H (0.00-0.4) % Nucleat RBC Rel Count 0.0 (0.00-0.1) % Eos # (Auto) 1.22 H (0-0.5) x10^3/uL Immature Gran # (Auto) 0.07 H (0.00-0.03) x10^3u/L Absolute Lymphs (auto) 1.16 (1.0-4.6) x10^3/uL Absolute Monos (auto) 0.62 (0.0-1.3) x10^3/uL Absolute Nucleated RBC 0.00 (0.00-0.01) x10^3u/L Lymphocytes % 11.5 L (24.0-44.0) % Monocytes % 6.2 (0.0-12.0) % Eosinophils % 12.1 H (0.00-5.0) % Basophils % 0.9 (0.0-0.4) % Absolute Granulocytes 6.92 H (1.4-6.9) x10^3/uL Basophils # 0.09 (0-0.4) x10^3/uL Sodium 140 (137-145) mmol/L Potassium 4.6 (3.5-5.1) mmol/L Chloride 98 (98-107) mmol/L Carbon Dioxide 34 H (22-30) mmol/L Anion Gap 12.4 (5-15) MEQ/L BUN 54 H (9-20) mg/dL Creatinine 2.17 H (0.66-1.25) mg/dL Estimated GFR 32.9 ML/MIN Glucose 89 (74-106) mg/dL POC Glucometer (74 to 106) mg/dL Calcium 7.9 L (8.4-10.2) mg/dL Iron 44 L (49-181) ug/dL Total Bilirubin 0.40 (0.2-1.3) mg/dL AST 14 L (17-59) U/L ALT 10 (0-50) U/L Alkaline Phosphatase 112 (38-126) U/L NT-Pro-B Natriuret Pep 1100 (<300) pg/mL Serum Total Protein 6.6 (6.3-8.2) g/dL Albumin 3.1 L (3.5-5.0) g/dL Vancomycin Trough (10-20) ug/mL 03/08/23 03/08/23 03/08/23 Range/Units 07:18 11:04 16:07 WBC (4.0-10.5) x10^3/uL RBC (4.1-5.6) x10^6/uL Hgb (12.5-18.0) g/dL Hct (42-50) % MCV (78-100) fL MCH (26-32) pg MCHC (32-36) g/dL RDW (11.5-14.0) % Plt Count (150-450) x10^3/uL MPV (7.5-11.0) fL Gran % (36.0-66.0) % Immature Gran % (Auto) (0.00-0.4) % Nucleat RBC Rel Count (0.00-0.1) % Eos # (Auto) (0-0.5) x10^3/uL Immature Gran # (Auto) (0.00-0.03) x10^3u/L Absolute Lymphs (auto) (1.0-4.6) x10^3/uL Absolute Monos (auto) (0.0-1.3) x10^3/uL Absolute Nucleated RBC (0.00-0.01) x10^3u/L Lymphocytes % (24.0-44.0) % Monocytes % (0.0-12.0) % Eosinophils % (0.00-5.0) % Basophils % (0.0-0.4) % Absolute Granulocytes (1.4-6.9) x10^3/uL Basophils # (0-0.4) x10^3/uL Sodium (137-145) mmol/L Potassium (3.5-5.1) mmol/L Chloride (98-107) mmol/L Carbon Dioxide (22-30) mmol/L Anion Gap (5-15) MEQ/L BUN (9-20) mg/dL Creatinine (0.66-1.25) mg/dL Estimated GFR ML/MIN Glucose (74-106) mg/dL POC Glucometer 89 168 H 263 H (74 to 106) mg/dL Calcium (8.4-10.2) mg/dL Iron (49-181) ug/dL Total Bilirubin (0.2-1.3) mg/dL AST (17-59) U/L ALT (0-50) U/L Alkaline Phosphatase (38-126) U/L NT-Pro-B Natriuret Pep (<300) pg/mL Serum Total Protein (6.3-8.2) g/dL Albumin (3.5-5.0) g/dL Vancomycin Trough (10-20) ug/mL Radiology Exams: Radiology Procedures Category Date Time Status CHEST 1 VIEW (PORTABLE) DAILY Exams 03/08/23 09:27 Completed CHEST 1 VIEW (PORTABLE) DAILY Exams 03/09/23 09:27 Ordered Multi-Disciplinary Progress Notes: Multi-Disciplinary Progress Notes 03/08/23 13:43 Case Management Note by Nelly Mcpherson S/W PATIENT-HE REPORTS HE HAS ALL THE EQUIPMENT HE NEEDS AT HOME. HE REPORTS HE TRANSFERS HIMSELF TO HIS POWERCHAIR. MAINTAINING NWB STATUS. PATIENT HAS PICC LINE ALREADY. HE HAS A FRIEND THAT HELPS GIVE HIS INFUSIONS. HE REPORTS [facility] DOES DRESSING CHANGES THREE TIMES A WEEK. WILL NEED TO SEND NEW ANTIBIOTIC ORDER TO [facility]. [facility] FAX# [phone]. WILL NEED TO COORDINATE ANTIBIOTIC DELIVERY WITH [facility] TO BE SURE THEY CAN GIVE/EDUCATE FIRST HOME DOSE. [facility] WILL ALSO REQUIRE PATIENT'S FIRST DOSE OF NEW ANTIBIOTIC TO BE GIVEN IN HOSPITAL TO BE SURE HE DOES NOT HAVE A REACTION. IF ANYTHING CHANGES WITH DRESSING CHANGES- THIS WILL NEED SENT TO [facility]. IAN [place]- PHONE# [phone]/SEE FAX NUMBER ABOVE A [facility]- PHONE# [phone] FAX#-[phone] Initialized on 03/08/23 13:43 - END OF NOTE Assessment/Plan (1) Venous insufficiency (chronic) (peripheral) Current Visit: Yes Status: Acute Assessment & Plan: Patient examination evaluation. Patient is progressing postop day status post incision and drainage with bone debridement to the left lower extremity. Patient has successfully infused 2 units of blood at this time and has had some resolution of his symptoms. Improved. H&H noted Improved WBCs at this time Continue vancomycin and Zosyn for now Awaiting intraoperative cultures however patient consistently has grown E. coli in the last several weeks. Will await pharmacy for stewardship for best plan of action. Will consider plan for repeat washout afternoon with consideration for split-thickness skin graft harvest from left thigh to left leg on Monday if infection appears to have cleared. Prevalon boot to left lower extremity to offload pressure PICC line to remain in place at this time with decision to be held based on culture and sensitivity. Continue pain prophylaxis Continue DVT prophylaxis Continue nonweightbearing to the left lower extremity Will follow closely Unna boots applied to the bilateral lower extremity and dressings changed due to venous insufficiency and localized edema. (2) Diabetic foot ulcer associated with type 2 diabetes mellitus, with fat layer exposed Current Visit: Yes Status: Acute Code(s): E11.621 - TYPE 2 DIABETES MELLITUS WITH FOOT ULCER; L97.502 - NON-PRS CHRONIC ULCER OTH PRT UNSP FOOT W FAT LAYER EXPOSED (3) Acute on chronic renal insufficiency Current Visit: No Status: Acute Code(s): N28.9 - DISORDER OF KIDNEY AND URETER, UNSPECIFIED; N18.9 - CHRONIC KIDNEY DISEASE, UNSPECIFIED (4) Charcot Omaira Tooth muscular atrophy Current Visit: No Status: Acute Code(s): G60.0 - HEREDITARY MOTOR AND SENSORY NEUROPATHY (5) Neuropathy, peripheral, hereditary Current Visit: No Status: Acute Code(s): G60.9 - HEREDITARY AND IDIOPATHIC NEUROPATHY, UNSPECIFIED (6) Venous (peripheral) insufficiency Current Visit: No Status: Acute Code(s): I87.2 - VENOUS INSUFFICIENCY (CHRONIC) (PERIPHERAL) (7) Localized edema Current Visit: No Status: Acute Code(s): R60.0 - LOCALIZED EDEMA (8) DM2 (diabetes mellitus, type 2) Current Visit: No Status: Chronic Qualifiers: Diabetes mellitus long-term insulin use: with intermediate designer use (9) Diabetic foot ulcer associated with type 2 diabetes mellitus, with fat layer exposed Current Visit: No Status: Chronic Qualifiers: Diabetic foot ulcer location: heel Laterality: left Qualified Code(s): E11.621 - Type 2 diabetes mellitus with foot ulcer; L97.422 - Non-pressure chronic ulcer of left heel and midfoot with fat layer exposed Code(s): E11.621 - TYPE 2 DIABETES MELLITUS WITH FOOT ULCER; L97.502 - NON-PRS CHRONIC ULCER OTH PRT UNSP FOOT W FAT LAYER EXPOSED
[2023-03-08] MEDS: ZOCOR 20MG PO SCH (21:17)
[2023-03-08] MEDS: Januvia 50 MG PO SCH (21:18)
[2023-03-08] MEDS: Flomax 0.4 MG PO SCH (21:18)
[2023-03-08] MEDS: Cyclobenzaprine 10 MG PO SCH (21:18)
[2023-03-08] MEDS: Lopressor 25MG Tab PO SCH (21:21)
[2023-03-08] MEDS: ISOPTIN SR PO SCH (21:21)
[2023-03-08] MEDS: NORCO 7.5/325 MG TAB PO PRN (21:22)
[2023-03-08] MEDS: Lantus Insulin SQ SCH (21:26)
[2023-03-08] MEDS: HUMALOG SQ PRN (21:27)
[2023-03-08] MEDS: Sodium Chloride 0.9% 500 ML 500 ML IV SCH ×2 (22:27→22:28)
[2023-03-09 05:38] LABS: Absolute Neutrophil Ct (ANC) 6.29 x10^3/uL (1.4-6.9); BASOPHIL % 0.7 % (0.0-0.4); Basophil (Absolute #) 0.06 x10^3/uL (0-0.4); Eosinophil % 12.2 % (0.00-5.0); Eosinophil (Absolute #) 1.09 x10^3/uL (0-0.5); Hematocrit 27.2 % (42-50); Hemoglobin 7.8 g/dL (12.5-18.0); IMMATURE GRAN # 0.04 x10^3u/L (0.00-0.03); IMMATURE GRAN % 0.4 % (0.00-0.4); Lymphocyte (Absolute #) 0.96 x10^3/uL (1.0-4.6); Lymphocytes % 10.7 % (24.0-44.0); Mean Cell Volume 95.1 fL (78-100); Mean Corpuscular Hemoglobin 27.3 pg (26-32); Mean Corpuscular Hgb Concent. 28.7 g/dL (32-36); Monocyte (Absolute #) 0.51 x10^3/uL (0.0-1.3); Monocytes % 5.7 % (0.0-12.0); Neutrophil % 70.3 % (36.0-66.0); Platelet Count 310 x10^3/uL (150-450); Red Blood Count 2.86 x10^6/uL (4.1-5.6); Red Cell Distribution Width 15.9 % (11.5-14.0)
[2023-03-09 06:01] LABS: ALBUMIN 3.1 g/dL (3.5-5.0); ANION GAP 10.9 MEQ/L (5-15); BILIRUBIN,TOTAL 0.3 mg/dL (0.2-1.3); Calcium 7.9 mg/dL (8.4-10.2); Creatinine 1 2.01 mg/dL (0.66-1.25); Potassium 4.5 mmol/L (3.5-5.1); Total Protein 6.5 g/dL (6.3-8.2)
[2023-03-09 06:28] LABS: Slide Review 1 YES
[2023-03-09] MEDS: PIPERACILLIN/TAZOBACTAM 3.375 GM in Sodium Chloride 100ML MINI-BAG PLUS 100 ML IV SCH ×2 (06:44→12:18)
[2023-03-09] MEDS: Glucotrol 5 MG PO SCH ×2 (07:51→17:22)
[2023-03-09] MEDS: Glucophage 500 MG PO SCH ×2 (07:51→17:22)
--- NOTE | 2023-03-09 08:34 | XRAY ---
Indication: Crackles. Comparison: One day earlier. Portable chest remains underinflated with new mild/moderate bibasilar infiltrates versus atelectasis and new small left effusion. Heart not enlarged again with right arm PICC line.
[2023-03-09] MEDS: NEURONTIN PO SCH ×3 (10:12→22:47)
[2023-03-09] MEDS: Aldactone 25 MG PO SCH (10:12)
[2023-03-09] MEDS: FEOSOL 325 MG PO SCH ×2 (10:12→23:15)
[2023-03-09] MEDS: Zaroxolyn 2.5 MG PO SCH (10:12)
[2023-03-09] MEDS: Ecotrin 325 MG PO SCH (10:12)
[2023-03-09] MEDS: Protonix 40MG Tablet PO SCH (10:13)
[2023-03-09] MEDS: VANCOMYCIN 1 GRAM/200 ML BAG 1 GM/200 ML PIGGYBACK IV SCH (10:13)
[2023-03-09] MEDS: Singulair 10 MG PO SCH (10:13)
[2023-03-09] MEDS: Furosemide 100mg/10 ml Vial IV SCH ×2 (10:13→17:43)
[2023-03-09] MEDS ORDERED: Xylocaine 1% Vial 30 ML PF IJ ONE (13:29)
[2023-03-09] MEDS ORDERED: Marcaine Mpf 0.5% Vial 30 Ml ONE (13:29)
[2023-03-09] MEDS: HUMALOG SQ PRN ×2 (17:48→23:16)
[2023-03-09] MEDS ORDERED: NEBCIN IV ONE (18:00)
[2023-03-09] MEDS ORDERED: SODIUM CHLORIDE 0.9% IV ONE (18:00)
[2023-03-09] MEDS ORDERED: TROUGH DRUG LEVELS IJ ONE (21:30)
[2023-03-09] MEDS: Lopressor 25MG Tab PO SCH (22:47)
[2023-03-09] MEDS: ZOCOR 20MG PO SCH (22:47)
[2023-03-09] MEDS: Flomax 0.4 MG PO SCH (22:47)
[2023-03-09] MEDS: ISOPTIN SR PO SCH (22:47)
[2023-03-09] MEDS: BACTRIM DS TABLET PO SCH (22:47)
[2023-03-09] MEDS: Januvia 50 MG PO SCH (22:47)
[2023-03-09] MEDS: Cyclobenzaprine 10 MG PO SCH (22:47)
[2023-03-09] MEDS: NORCO 7.5/325 MG TAB PO PRN (22:48)
[2023-03-09] MEDS: Lantus Insulin SQ SCH (23:15)
[2023-03-10] MEDS ORDERED: Marcaine Mpf 0.5% Vial 30 Ml ONE (06:45)
[2023-03-10] MEDS ORDERED: MINERAL OIL LIGHT 10 ML FOR SURGERY ONE (06:45)
[2023-03-10] MEDS ORDERED: Lactated Ringers 0 ML IV ONE (06:45)
[2023-03-10] MEDS ORDERED: Marcaine 0.5%/Epinephrine 10 ML ONE (06:45)
[2023-03-10] MEDS ORDERED: Xylocaine 1% Vial 30 ML PF IJ ONE (06:45)
[2023-03-10] MEDS: Glucotrol 5 MG PO SCH ×2 (07:49→17:12)
[2023-03-10] MEDS: Glucophage 500 MG PO SCH ×2 (07:49→17:11)
--- NOTE | 2023-03-10 08:09 | OP ---
SURGERY DATE/TIME: 03/09/2023 1613 PREOPERATIVE DIAGNOSES: 1) Diabetic foot ulcer. 2) Diabetic leg ulcer. 3) Diabetic peripheral neuropathy. 4) Hereditary sensory polyneuropathy. 5) Diabetes without complication. 6) Failure of outpatient antibiotics. POSTOPERATIVE DIAGNOSES: 1) Diabetic foot ulcer. 2) Diabetic leg ulcer. 3) Diabetic peripheral neuropathy. 4) Hereditary sensory polyneuropathy. 5) Diabetes without complication. 6) Failure of outpatient antibiotics. PROCEDURES: 1) Repeat incision and drainage with bone debridement to leg. 2) Incision and drainage to the foot to level of soft tissue. SURGEON: Ad Richardson DPM. LICENSING ANALYST: None. ANESTHESIA: None. The patient is largely neuropathic. HEMOSTASIS: Pressure dressing. ESTIMATED BLOOD LOSS: Less than 10 cc. MATERIALS: None. INJECTABLES: None. INDICATION FOR SURGERY: Reji is a pleasant 62-year-old male well known to my service and preparing for the second stage of a three stage procedure today. The patient has done an excellent job over the course of the last several days eradicating his sepsis with use of IV antibiotics and debridement. At this time the patient's white blood cell count has normalized and there is some concerns of some local signs of infection at this time with fibrotic tissue and some purulent erythema. At this time the decision was made to proceed with a second wash out to the level of bone at the level of the ankle and to the level of soft tissue at the lateral aspect of the foot. The patient understands all risks, complications and benefits. The patient understands that this is to prepare for a split thickness skin graft that is planned to be performed on Monday of this week. The patient understands that there are clear and potential risks of failure if there is residual infection so the idea of a second wash out is amenable to him at this time. The patient understands all risks, complications and benefits of the procedure including but not limited to infection, hematoma, seroma, possibility of delayed wound healing, nonwound healing, failure of surgical intervention and need for further surgical intervention at a later date. No guarantees were provided as to the outcome of surgical intervention at this time. It is with that we decided to proceed. DESCRIPTION OF PROCEDURE AND FINDINGS: The patient is brought into the OR and placed on the OR table in the supine position. At this time the patients left lower extremity was prepped and draped in the typical sterile fashion. At this time a curette was utilized and aggressive debridement of the fibrotic tissue was performed until healthy bleeding was seen and no longer was any fibrotic or necrotic tissue at the wound margin was identified. At this time 3 liters of sterile saline were utilized to flush the surgical site. A small area of exposed tendon was debrided. Once again a small area of bone at the anterior aspect and curette was utilized to debride this area until healthy debridement sign was identified. At this time once again copious amounts of sterile saline were utilized to flush the surgical site. Gloves changed and a dressing consisting of Betadine, Adaptic, 4x4, Kerlix, ABD and DEAN was applied to the left lower extremity. The patient then was returned to his room with vital signs stable and vascular status intact. Blood loss throughout the procedure was minimal. Instructions were to monitor the patient's hemoglobin which was low on presentation. Assessment for occult bleed was performed demonstrating none. However, the patient would benefit from just monitoring it at this time. The patient's orders as indicated in the patient's inpatient chart.
--- NOTE | 2023-03-10 08:38 | XRAY ---
Indication: CHF. Infiltrates. Comparison: One day earlier Portable chest again underinflated with now worsening diffuse right lung infiltrate/atelectasis. Stable mild left base infiltrate/atelectasis and small bibasilar effusions. Heart borderline enlarged with stable right PICC line.
--- NOTE | 2023-03-10 09:28 | XRAY ---
Indication: Confusion and aphagia. Multiple contiguous axial images obtained through the head without contrast. Comparison: None Age-appropriate global atrophy. No acute intracranial hemorrhage, abnormal extra-axial fluid collection, or mass effect. Fourth ventricle is midline without hydrocephalus. Wagoner-white matter differentiation preserved. Bony calvarium intact. Visualized paranasal sinuses and mastoid air cells are clear. Impression: Atrophy within normal limits for patient's age. No acute intracranial abnormalities.
--- NOTE | 2023-03-10 10:14 | PCM.NOTE ---
Date and Time: 03/10/23 1012 Subjective Assessment: POD #1 s/p repeat Incision and drainage left leg and foot. Patient overnight developing twitches to upper extremity with slurred speech. Patient admits to not feeling well at this time. Denies any other complaints at this time. Physical Exam - Narrative Narrative Physical Exam: Podiatry Physical Exam OBJECTIVE DATA Vital Signs: Vital Signs - 24 hr Temp Pulse Resp BP Pulse Ox 03/10/23 08:00 98.5 F 87 16 123/59 92 L 03/10/23 07:41 94 L 03/10/23 06:13 98.4 F 85 20 133/60 93 L 03/10/23 03:56 98.4 F 85 20 133/60 93 L 03/10/23 00:00 97.6 F 80 20 154/87 94 L 03/09/23 20:00 97.7 F 86 16 142/67 93 L 03/09/23 18:22 94 L 03/09/23 16:00 98.7 F 62 24 142/76 91 L 03/09/23 12:00 98.7 F 73 18 132/63 93 L 03/09/23 11:00 98.7 F 73 18 132/63 93 L Pain Assessment - Last Documented Pain Intensity 0 Pain Scale Used 0-10 Pain Scale Intake and Output: Intake & Output 03/07/23 03/08/23 03/09/23 03/10/23 11:59 11:59 11:59 11:59 Intake Total 3460 3920 2280 1420 Output Total 1400 1 Balance 2060 3919 2280 1420 Weight 128.2 kg 132.1 kg 132.1 kg 132.1 kg Lab Results: Lab Results-Last 24 Hours 03/09/23 03/09/23 03/09/23 Range/Units 11:22 12:01 17:21 D-Dimer (0.0-0.50) mg/L POC Glucometer 163 H 147 H 319 H (74 to 106) mg/dL 03/09/23 03/10/23 03/10/23 Range/Units 22:14 07:13 08:29 D-Dimer 2.73 H* (0.0-0.50) mg/L POC Glucometer 313 H 130 H (74 to 106) mg/dL Radiology Exams: Radiology Procedures Category Date Time Status CHEST 1 VIEW (PORTABLE) DAILY Exams 03/08/23 09:27 Completed CHEST 1 VIEW (PORTABLE) DAILY Exams 03/09/23 09:27 Completed CHEST 1 VIEW (PORTABLE) Stat Exams 03/10/23 07:18 Completed HEAD WITHOUT CONTRAST [CT] Stat Exams 03/10/23 08:27 Completed Multi-Disciplinary Progress Notes: Multi-Disciplinary Progress Notes 03/09/23 13:48 Occupational Therapy Note by Morelia Rabago OCCUPATIONAL THERAPY NOTE (13:25): PATIENT DECLINES PARTICIPATION AT THIS TIME AND PLANS FOR DISCHARGE HOME TOMORROW AFTERNOON (FOLLOWING SKIN GRAFT). Initialized on 03/09/23 13:48 - END OF NOTE Assessment/Plan (1) Venous insufficiency (chronic) (peripheral) Current Visit: Yes Status: Acute Assessment & Plan: Patient examination evaluation. Patient is progressing postop day status post incision and drainage with bone debridement to the left lower extremity. Improved WBCs at this time Changed abx to tobramycin and Bactrim in preparation for d/c Changes in patient consitution warrant extended stay for medical management Can cancelled for today. Will reconsider once medically stable Prevalon boot to left lower extremity to offload pressure PICC line to remain in place Continue pain prophylaxis Continue DVT prophylaxis Continue nonweightbearing to the left lower extremity Dressing changes to bilateral lower extremity. Will proceed with next change on Monday. Will follow closely Unna boots applied to the bilateral lower extremity and dressings changed due to venous insufficiency and localized edema. (2) Diabetic foot ulcer associated with type 2 diabetes mellitus, with fat layer exposed Current Visit: Yes Status: Acute Code(s): E11.621 - TYPE 2 DIABETES MELLITUS WITH FOOT ULCER; L97.502 - NON-PRS CHRONIC ULCER OTH PRT UNSP FOOT W FAT LAYER EXPOSED (3) Acute on chronic renal insufficiency Current Visit: No Status: Acute Code(s): N28.9 - DISORDER OF KIDNEY AND UR ETER, UNSPECIFIED; N18.9 - CHRONIC KIDNEY DISEASE, UNSPECIFIED (4) Charcot Omaira Tooth muscular atrophy Current Visit: No Status: Acute Code(s): G60.0 - HEREDITARY MOTOR AND SENSORY NEUROPATHY (5) Neuropathy, peripheral, hereditary Current Visit: No Status: Acute Code(s): G60.9 - HEREDITARY AND IDIOPATHIC NEUROPATHY, UNSPECIFIED (6) Venous (peripheral) insufficiency Current Visit: No Status: Acute Code(s): I87.2 - VENOUS INSUFFICIENCY (CHRONIC) (PERIPHERAL) (7) Localized edema Current Visit: No Status: Acute Code(s): R60.0 - LOCALIZED EDEMA (8) DM2 (diabetes mellitus, type 2) Current Visit: No Status: Chronic Qualifiers: Diabetes mellitus intermediate manager insulin use: with intermediate manager use (9) Diabetic foot ulcer associated with type 2 diabetes mellitus, with fat layer exposed Current Visit: No Status: Chronic Qualifiers: Diabetic foot ulcer location: heel Laterality: left Qualified Code(s): E11.621 - Type 2 diabetes mellitus with foot ulcer; L97.422 - Non-pressure chronic ulcer of left heel and midfoot with fat layer exposed Code(s): E11.621 - TYPE 2 DIABETES MELLITUS WITH FOOT ULCER; L97.502 - NON-PRS CHRONIC ULCER OTH PRT UNSP FOOT W FAT LAYER EXPOSED
[2023-03-10] MEDS: Furosemide 100mg/10 ml Vial IV SCH ×2 (11:00→17:11)
[2023-03-10] MEDS: FEOSOL 325 MG PO SCH ×2 (11:00→22:30)
[2023-03-10] MEDS: Zaroxolyn 2.5 MG PO SCH (11:00)
[2023-03-10] MEDS: Singulair 10 MG PO SCH (11:00)
[2023-03-10] MEDS: Aldactone 25 MG PO SCH (11:00)
[2023-03-10] MEDS: BACTRIM DS TABLET PO SCH ×2 (11:00→22:27)
[2023-03-10] MEDS: Ecotrin 325 MG PO SCH (11:00)
[2023-03-10] MEDS: NEURONTIN PO SCH ×3 (11:00→22:27)
[2023-03-10] MEDS: Protonix 40MG Tablet PO SCH (11:00)
[2023-03-10 15:03] LABS: Creatinine 1 2.25 mg/dL (0.66-1.25); EST GLOMERULAR FILTRATION RATE 31.6 ML/MIN
[2023-03-10 17:15] LABS: Appearance Clear (Clear); Bacteria None Seen /HPF (None Seen); Bilirubin Negative (Negative); Blood NHT (Negative); Epithelial Cells None Seen /HPF (None Seen); Glucose, Urine 100 mg/dL (Negative); Ketones Negative (Negative); Leukocyte Esterase Small (Negative); Nitrite Negative (Negative); Protein,Urine Dip 30 (Negative); Urobilinogen 0.2 mg/dL (0.2)
[2023-03-10] MEDS: HUMALOG SQ PRN ×2 (17:23→22:31)
[2023-03-10 17:38] LABS: ADD URINE CULTURE? YES (NO)
[2023-03-10] MEDS ORDERED: SODIUM CHLORIDE 0.9% IV SCH (18:00)
[2023-03-10] MEDS ORDERED: GARAMYCIN IV SCH (18:00)
[2023-03-10] MEDS: ZOCOR 20MG PO SCH (22:27)
[2023-03-10] MEDS: Flomax 0.4 MG PO SCH (22:27)
[2023-03-10] MEDS: NORCO 7.5/325 MG TAB PO PRN (22:28)
[2023-03-10] MEDS: Cyclobenzaprine 10 MG PO SCH (22:28)
[2023-03-10] MEDS: ISOPTIN SR PO SCH (22:28)
[2023-03-10] MEDS: Januvia 50 MG PO SCH (22:28)
[2023-03-10] MEDS: Lopressor 25MG Tab PO SCH (22:29)
[2023-03-10] MEDS: Lantus Insulin SQ SCH (22:30)
[2023-03-11 06:16] LABS: Hematocrit 27.1 % (42-50); Mean Cell Volume 93.8 fL (78-100); Mean Corpuscular Hemoglobin 27.7 pg (26-32); Mean Corpuscular Hgb Concent. 29.5 g/dL (32-36); Mean Platelet Volume 9.6 fL (7.5-11.0); Platelet Count 307 x10^3/uL (150-450); Red Blood Count 2.89 x10^6/uL (4.1-5.6); Red Cell Distribution Width 16.2 % (11.5-14.0); White Blood Count 13.2 x10^3/uL (4.0-10.5)
[2023-03-11 07:13] LABS: ALBUMIN 3.4 g/dL (3.5-5.0); BILIRUBIN,TOTAL 0.3 mg/dL (0.2-1.3); Calcium 7.7 mg/dL (8.4-10.2); Creatinine 1 2.52 mg/dL (0.66-1.25); EST GLOMERULAR FILTRATION RATE 27.7 ML/MIN; Potassium 5.6 mmol/L (3.5-5.1); Total Protein 7.3 g/dL (6.3-8.2)
[2023-03-11 08:26] LABS: A-aADO2 356; ABG HEMOGLOBIN 8.7; ARTERIAL BLD GAS O2 SATURATION 95.9 % (95-100); ARTERIAL BLOOD GAS BASE EXCESS -1.3 (-2.0-2.0); ARTERIAL BLOOD GAS FIO2 70 %; ARTERIAL BLOOD GAS PO2 68 mmHg (75-100); CARBOXYHEMOGLOBIN 2.4 % THgb (0.0-6.9); HCO3- 26.3 (22-28); HGB O2 SAT 92.7 g/dF (94-100); Methhemoglobin 0.9 % (1.4-1.5); paO2 pAO1 0.16
[2023-03-11 08:27] LABS: ARTERIAL BLOOD GAS pH 7.25 (7.35-7.45)
[2023-03-11 08:28] LABS: ABG POTASSIUM 6.3 (3.5-5.1); ARTERIAL BLOOD GAS PCO2 60 mmHg (35-45)
[2023-03-11 08:56] LABS: MAGNESIUM 1.7 mg/dL (1.6-2.3)
[2023-03-11] MEDS: Kayexylate 15 GM/60 ML PO SCH ×2 (09:38→13:40)
[2023-03-11] MEDS: Glucophage 500 MG PO SCH (09:44)
[2023-03-11] MEDS: Singulair 10 MG PO SCH (09:45)
[2023-03-11] MEDS: FEOSOL 325 MG PO SCH (09:45)
[2023-03-11] MEDS: Ecotrin 325 MG PO SCH (09:45)
[2023-03-11] MEDS: Protonix 40MG Tablet PO SCH (09:45)
[2023-03-11] MEDS: BACTRIM DS TABLET PO SCH (09:45)
[2023-03-11] MEDS: Zaroxolyn 2.5 MG PO SCH (09:45)
[2023-03-11] MEDS: NEURONTIN PO SCH ×2 (09:45→15:13)
[2023-03-11 10:38] LABS: A-aADO2 201; ABG HEMOGLOBIN 8.7; ARTERIAL BLD GAS O2 SATURATION 97.5 % (95-100); ARTERIAL BLOOD GAS BASE EXCESS 0.1 (-2.0-2.0); ARTERIAL BLOOD GAS FIO2 50 %; ARTERIAL BLOOD GAS PCO2 58 mmHg (35-45); ARTERIAL BLOOD GAS PO2 83 mmHg (75-100); ARTERIAL BLOOD GAS VENT MODE BiPAP; ARTERIAL BLOOD GAS pH 7.28 (7.35-7.45); BIPAP(E) 6; BIPAP(I) 14; CARBOXYHEMOGLOBIN 1.4 % THgb (0.0-6.9); HCO3- 27.3 (22-28); Methhemoglobin 1.2 % (1.4-1.5); paO2 pAO1 0.29
[2023-03-11 10:39] LABS: ABG POTASSIUM 6.1 (3.5-5.1); ABG SITE LEFT BRACHIAL
[2023-03-11] MEDS ORDERED: Piperacillin/Tazobactam 2.25 GM 2.25 GM in Sodium Chloride 100ML MINI-BAG PLUS 100 ML IV SCH (11:00)
[2023-03-11] MEDS: Glucotrol 5 MG PO SCH ×2 (11:00→17:48)
--- NOTE | 2023-03-11 12:17 | XRAY ---
CLINICAL HISTORY:elevated d-dimer; COMPARISON:None; TECHNIQUES:Spiral axial continuous cuts were taken through the chest with multiplanar reformatting and without contrast administration. Total DLP 660.42 mGy*cm. CTDI 33.45 mGy; FINDINGS: Central venous line is noted with its tip at the junction of the right and left brachiocephalic veins and needs repositioning. There is airspace consolidation with air bronchogram is seen involving the posterior basal segments of both lower lung lobes. The rest of both lungs are clear with no parenchymal or interstitial lesion. No evidence of nodules, masses. Minimal bilateral pleural effusion also noted with effusion in the fissures. The vascular pattern appears normal with no evidence of bronchovascular distortion. Few small reactive mediastinal lymph nodes are noted. Mild cardiac enlargement with no pericardial effusion. The visualized chest wall and axillary spaces display a normal appearance. There is the apparent mild elevation of the hemidiaphragm on both sides. Bone window settings showed reduced osseous mineralization and degenerative changes of the thoracic spine. Scanned upper abdominal cuts show minimal fat stranding in the upper abdomen along the partially visualized gallbladder. IMPRESSION: 1. Bilateral basal consolidations with minimal bilateral pleural effusion. Possibilities include pneumonia and aspiration. Clinical correlation is advised. 2. The central venous line is noted with its tip at the junction of the right and left brachiocephalic veins and needs repositioning. 3. Mild cardiomegaly. 4. Minimal fat stranding seen in the upper abdomen along the partially visualized gallbladder would recommend sonography for further evaluation. Electronically Signed by: Leyt Junior MD. (03/11/2023 11:13:23 PHOTOVOLTAIC TESTING TECHNICIAN.)
--- NOTE | 2023-03-11 12:43 | PCM.NOTE ---
Date and Time: 03/11/23 1223 OBJECTIVE DATA Vital Signs: Vital Signs - 24 hr Temp Pulse Resp BP Pulse Ox 03/11/23 11:58 98.8 F 78 18 123/56 89 L 03/11/23 07:35 98.5 F 71 17 107/65 67 L 03/11/23 04:00 97.7 F 80 19 119/58 93 L 03/10/23 23:51 98.0 F 82 19 145/66 95 03/10/23 19:51 98.6 F 86 19 154/65 98 03/10/23 19:15 98 03/10/23 16:00 98 F 83 16 138/65 90 L Pain Assessment - Last Documented Pain Intensity 0 Pain Scale Used 0-10 Pain Scale Intake and Output: Intake & Output 03/09/23 03/10/23 03/11/23 03/12/23 11:59 11:59 11:59 11:59 Intake Total 2280 1420 1560 Balance 2280 1420 1560 Weight 132.1 kg 132.1 kg Lab Results: Lab Results-Last 24 Hours 03/10/23 03/10/23 03/10/23 Range/Units 08:00 14:45 16:31 WBC (4.0-10.5) x10^3/uL RBC (4.1-5.6) x10^6/uL Hgb (12.5-18.0) g/dL Hct (42-50) % MCV (78-100) fL MCH (26-32) pg MCHC (32-36) g/dL RDW (11.5-14.0) % Plt Count (150-450) x10^3/uL MPV (7.5-11.0) fL Puncture Site pCO2 (35-45) mmHg pO2 (75-100) mmHg Base Excess (-2.0-2.0) O2 Saturation (94-100) g/dF ABG pH (7.35-7.45) ABG HCO3 (22-28) ABG O2 Sat (Measured) (95-100) % Remy Test A-a Gradient a/A Ratio Hemoglobin Carboxyhemoglobin (0.0-6.9) % THgb Methemoglobin (1.4-1.5) % Temperature C POC O2 Flow Rate % Vent Mode Inspiratory BiPAP Expiratory BiPAP Sodium (137-145) mmol/L Potassium (3.5-5.1) mmol/L Chloride (98-107) mmol/L Carbon Dioxide (22-30) mmol/L Anion Gap (5-15) MEQ/L BUN (9-20) mg/dL Creatinine 2.25 H (0.66-1.25) mg/dL Estimated GFR 31.6 ML/MIN Glucose (74-106) mg/dL POC Glucometer (74 to 106) mg/dL Calcium (8.4-10.2) mg/dL Magnesium (1.6-2.3) mg/dL Total Bilirubin (0.2-1.3) mg/dL AST (17-59) U/L ALT (0-50) U/L Alkaline Phosphatase (38-126) U/L NT-Pro-B Natriuret Pep (<300) pg/mL Serum Total Protein (6.3-8.2) g/dL Albumin (3.5-5.0) g/dL Urine Color Yellow (Yellow) Urine Appearance Clear (Clear) Urine pH 5.0 (4.6-8.0) Ur Specific Maupin 1.010 (1.005-1.030) Urine Protein 30 (Negative) Urine Glucose (UA) 100 A (Negative) mg/dL Urine Ketones Negative (Negative) Urine Blood NHT (Negative) Urine Nitrite Negative (Negative) Urine Bilirubin Negative (Negative) Urine Urobilinogen 0.2 (0.2) mg/dL Ur Leukocyte Esterase Small A (Negative) U Hyaline Cast (Auto) 3-5 A (0-2) /LPF Urine Microscopic RBC 3-5 (0-5) /HPF Urine Microscopic WBC 6-10 A (0-5) /HPF Ur Epithelial Cells None Seen (None Seen) /HPF Urine Bacteria None Seen (None Seen) /HPF Urine Culture Reflexed YES (NO) Random Tobramycin SEE SEPARATE REPORT 03/10/23 03/10/23 03/10/23 Range/Units 16:39 17:18 20:45 WBC (4.0-10.5) x10^3/uL RBC (4.1-5.6) x10^6/uL Hgb (12.5-18.0) g/dL Hct (42-50) % MCV (78-100) fL MCH (26-32) pg MCHC (32-36) g/dL RDW (11.5-14.0) % Plt Count (150-450) x10^3/uL MPV (7.5-11.0) fL Puncture Site pCO2 (35-45) mmHg pO2 (75-100) mmHg Base Excess (-2.0-2.0) O2 Saturation (94-100) g/dF ABG pH (7.35-7.45) ABG HCO3 (22-28) ABG O2 Sat (Measured) (95-100) % Remy Test A-a Gradient a/A Ratio Hemoglobin Carboxyhemoglobin (0.0-6.9) % THgb Methemoglobin (1.4-1.5) % Temperature C POC O2 Flow Rate % Vent Mode Inspiratory BiPAP Expiratory BiPAP Sodium (137-145) mmol/L Potassium (3.5-5.1) mmol/L Chloride (98-107) mmol/L Carbon Dioxide (22-30) mmol/L Anion Gap (5-15) MEQ/L BUN (9-20) mg/dL Creatinine (0.66-1.25) mg/dL Estimated GFR ML/MIN Glucose (74-106) mg/dL POC Glucometer 322 H 288 H 362 H (74 to 106) mg/dL Calcium (8.4-10.2) mg/dL Magnesium (1.6-2.3) mg/dL Total Bilirubin (0.2-1.3) mg/dL AST (17-59) U/L ALT (0-50) U/L Alkaline Phosphatase (38-126) U/L NT-Pro-B Natriuret Pep (<300) pg/mL Serum Total Protein (6.3-8.2) g/dL Albumin (3.5-5.0) g/dL Urine Color (Yellow) Urine Appearance (Clear) Urine pH (4.6-8.0) Ur Specific Maupin (1.005-1.030) Urine Protein (Negative) Urine Glucose (UA) (Negative) mg/dL Urine Ketones (Negative) Urine Blood (Negative) Urine Nitrite (Negative) Urine Bilirubin (Negative) Urine Urobilinogen (0.2) mg/dL Ur Leukocyte Esterase (Negative) U Hyaline Cast (Auto) (0-2) /LPF Urine Microscopic RBC (0-5) /HPF Urine Microscopic WBC (0-5) /HPF Ur Epithelial Cells (None Seen) /HPF Urine Bacteria (None Seen) /HPF Urine Culture Reflexed (NO) Random Tobramycin 03/11/23 03/11/23 03/11/23 Range/Units 05:45 06:19 06:19 WBC 13.2 H (4.0-10.5) x10^3/uL RBC 2.89 L (4.1-5.6) x10^6/uL Hgb 8.0 L (12.5-18.0) g/dL Hct 27.1 L (42-50) % MCV 93.8 (78-100) fL MCH 27.7 (26-32) pg MCHC 29.5 L (32-36) g/dL RDW 16.2 H (11.5-14.0) % Plt Count 307 (150-450) x10^3/uL MPV 9.6 (7.5-11.0) fL Puncture Site pCO2 (35-45) mmHg pO2 (75-100) mmHg Base Excess (-2.0-2.0) O2 Saturation (94-100) g/dF ABG pH (7.35-7.45) ABG HCO3 (22-28) ABG O2 Sat (Measured) (95-100) % Reym Test A-a Gradient a/A Ratio Hemoglobin Carboxyhemoglobin (0.0-6.9) % THgb Methemoglobin (1.4-1.5) % Temperature C POC O2 Flow Rate % Vent Mode Inspiratory BiPAP Expiratory BiPAP Sodium 137 (137-145) mmol/L Potassium 5.6 H (3.5-5.1) mmol/L Chloride 96 L (98-107) mmol/L Carbon Dioxide 31 H (22-30) mmol/L Anion Gap 16.0 H (5-15) MEQ/L BUN 66 H (9-20) mg/dL Creatinine 2.52 H (0.66-1.25) mg/dL Estimated GFR 27.7 ML/MIN Glucose 221 H (74-106) mg/dL POC Glucometer (74 to 106) mg/dL Calcium 7.7 L (8.4-10.2) mg/dL Magnesium 1.7 (1.6-2.3) mg/dL Total Bilirubin 0.30 (0.2-1.3) mg/dL AST 13 L (17-59) U/L ALT 10 (0-50) U/L Alkaline Phosphatase 126 (38-126) U/L NT-Pro-B Natriuret Pep 1630 (<300) pg/mL Serum Total Protein 7.3 (6.3-8.2) g/dL Albumin 3.4 L (3.5-5.0) g/dL Urine Color (Yellow) Urine Appearance (Clear) Urine pH (4.6-8.0) Ur Specific Maupin (1.005-1.030) Urine Protein (Negative) Urine Glucose (UA) (Negative) mg/dL Urine Ketones (Negative) Urine Blood (Negative) Urine Nitrite (Negative) Urine Bilirubin (Negative) Urine Urobilinogen (0.2) mg/dL Ur Leukocyte Esterase (Negative) U Hyaline Cast (Auto) (0-2) /LPF Urine Microscopic RBC (0-5) /HPF Urine Microscopic WBC (0-5) /HPF Ur Epithelial Cells (None Seen) /HPF Urine Bacteria (None Seen) /HPF Urine Culture Reflexed (NO) Random Tobramycin 03/11/23 03/11/23 03/11/23 Range/Units 07:16 08:18 10:30 WBC (4.0-10.5) x10^3/uL RBC (4.1-5.6) x10^6/uL Hgb (12.5-18.0) g/dL Hct (42-50) % MCV (78-100) fL MCH (26-32) pg MCHC (32-36) g/dL RDW (11.5-14.0) % Plt Count (150-450) x10^3/uL MPV (7.5-11.0) fL Puncture Site Pending LEFT BRACHIAL pCO2 60 H* 58 H (35-45) mmHg pO2 68 L 83 (75-100) mmHg Base Excess -1.3 0.1 (-2.0-2.0) O2 Saturation 92.7 L 95.0 (94-100) g/dF ABG pH 7.25 L* 7.28 L (7.35-7.45) ABG HCO3 26.3 27.3 (22-28) ABG O2 Sat (Measured) 95.9 97.5 (95-100) % Remy Test Pending NOT APPLICABLE A-a Gradient 356 201 a/A Ratio 0.16 0.29 Hemoglobin 8.7 8.7 Carboxyhemoglobin 2.4 1.4 (0.0-6.9) % THgb Methemoglobin 0.9 L 1.2 L (1.4-1.5) % Temperature 37.0 37.0 C POC O2 Flow Rate 70 50 % Vent Mode BiPAP Inspiratory BiPAP 14 Expiratory BiPAP 6 Sodium (137-145) mmol/L Potassium 6.3 H* 6.1 H* (3.5-5.1) mmol/L Chloride (98-107) mmol/L Carbon Dioxide (22-30) mmol/L Anion Gap (5-15) MEQ/L BUN (9-20) mg/dL Creatinine (0.66-1.25) mg/dL Estimated GFR ML/MIN Glucose (74-106) mg/dL POC Glucometer 229 H (74 to 106) mg/dL Calcium (8.4-10.2) mg/dL Magnesium (1.6-2.3) mg/dL Total Bilirubin (0.2-1.3) mg/dL AST (17-59) U/L ALT (0-50) U/L Alkaline Phosphatase (38-126) U/L NT-Pro-B Natriuret Pep (<300) pg/mL Serum Total Protein (6.3-8.2) g/dL Albumin (3.5-5.0) g/dL Urine Color (Yellow) Urine Appearance (Clear) Urine pH (4.6-8.0) Ur Specific Maupin (1.005-1.030) Urine Protein (Negative) Urine Glucose (UA) (Negative) mg/dL Urine Ketones (Negative) Urine Blood (Negative) Urine Nitrite (Negative) Urine Bilirubin (Negative) Urine Urobilinogen (0.2) mg/dL Ur Leukocyte Esterase (Negative) U Hyaline Cast (Auto) (0-2) /LPF Urine Microscopic RBC (0-5) /HPF Urine Microscopic WBC (0-5) /HPF Ur Epithelial Cells (None Seen) /HPF Urine Bacteria (None Seen) /HPF Urine Culture Reflexed (NO) Random Tobramycin 03/11/23 Range/Units 11:40 WBC (4.0-10.5) x10^3/uL RBC (4.1-5.6) x10^6/uL Hgb (12.5-18.0) g/dL Hct (42-50) % MCV (78-100) fL MCH (26-32) pg MCHC (32-36) g/dL RDW (11.5-14.0) % Plt Count (150-450) x10^3/uL MPV (7.5-11.0) fL Puncture Site pCO2 (35-45) mmHg pO2 (75-100) mmHg Base Excess (-2.0-2.0) O2 Saturation (94-100) g/dF ABG pH (7.35-7.45) ABG HCO3 (22-28) ABG O2 Sat (Measured) (95-100) % Remy Test A-a Gradient a/A Ratio Hemoglobin Carboxyhemoglobin (0.0-6.9) % THgb Methemoglobin (1.4-1.5) % Temperature C POC O2 Flow Rate % Vent Mode Inspiratory BiPAP Expiratory BiPAP Sodium (137-145) mmol/L Potassium (3.5-5.1) mmol/L Chloride (98-107) mmol/L Carbon Dioxide (22-30) mmol/L Anion Gap (5-15) MEQ/L BUN (9-20) mg/dL Creatinine (0.66-1.25) mg/dL Estimated GFR ML/MIN Glucose (74-106) mg/dL POC Glucometer 286 H (74 to 106) mg/dL Calcium (8.4-10.2) mg/dL Magnesium (1.6-2.3) mg/dL Total Bilirubin (0.2-1.3) mg/dL AST (17-59) U/L ALT (0-50) U/L Alkaline Phosphatase (38-126) U/L NT-Pro-B Natriuret Pep (<300) pg/mL Serum Total Protein (6.3-8.2) g/dL Albumin (3.5-5.0) g/dL Urine Color (Yellow) Urine Appearance (Clear) Urine pH (4.6-8.0) Ur Specific Maup[place] (1.005-1.030) Urine Protein (Negative) Urine Glucose (UA) (Negative) mg/dL Urine Ketones (Negative) Urine Blood (Negative) Urine Nitrite (Negative) Urine Bilirubin (Negative) Urine Urobilinogen (0.2) mg/dL Ur Leukocyte Esterase (Negative) U Hyaline Cast (Auto) (0-2) /LPF Urine Microscopic RBC (0-5) /HPF Urine Microscopic WBC (0-5) /HPF Ur Epithelial Cells (None Seen) /HPF Urine Bacteria (None Seen) /HPF Urine Culture Reflexed (NO) Random Tobramycin Radiology Exams: Radiology Procedures Category Date Time Status CHEST 1 VIEW (PORTABLE) Stat Exams 03/10/23 07:18 Completed CHEST WITHOUT CONTRAST [CT] Stat Exams 03/11/23 11:22 Taken HEAD WITHOUT CONTRAST [CT] Stat Exams 03/10/23 08:27 Completed MRA BRAIN WITHOUT CONTRAST [MRI] Routine Exams 03/11/23 12:15 Ordered MRA NECK WITHOUT CONTRAST [MRI] Routine Exams 03/11/23 12:15 Ordered Multi-Disciplinary Progress Notes: Multi-Disciplinary Progress Notes 03/10/23 16:32 Case Management Note by Tenisha Mcpherson S/W PATIENT ABOUT PLANS FOR DC. PATIENT WILL LIKELY BE HERE THRU THE WEEKEND [facility] NEEDS PATIENT MORE MEDICALLY STABLE BEFORE HE TAKES PATIENT BACK TO OR FOR FINAL PROCEDURE BEFORE DC HOME. HE WOULD LIKE TO CONTINUE TO PLAN TO RETURN HOME WITH HHC AND HOME INFUSIONS HOWEVER PATIENT HAS HAD NEW ONSET STROKE LIKE SYMPTOMS AND WAS UNABLE TO FEED HIMSELF THIS AM. HE REPORTS IF THIS DOES NOT IMPROVE BY TIME OF DC HE MAY NEED TO CONSIDER A REHAB STAY. HE REPORTS HE WOULD WANT THIS TIME AT [facility]. IF HE DOES GO HOME WE WILL NEED TO GET NEW IV ANTIBIOTIC ORDERS SENT TO [facility] AND COORDINATE THAT WITH PATIENT'S HHC. PATIENT ALREADY HAS PICC LINE IN PLACE. Initialized on 03/10/23 16:32 - END OF NOTE 03/10/23 15:47 Pharmacy Note by Kojo Romeo Changing Tobramycin to Gentamicin to watch levels closer. We are able to do Gent levels in house. Cultures are sensitive to Gent as well. Initialized on 03/10/23 15:47 - END OF NOTE 03/10/23 14:51 Occupational Therapy Note by Ricky(L#[id number]),Danielle OLEARY WAS SEEN THIS PM WHILE SITTING UP IN POWER WHEELCHAIR. HIS SISTER WAS ALSO PRESENT. THEY BOTH REPORTED THAT HE HAS EXHIBITED CVA-LIKE SYMPTOMS THIS DATE INCLUDING DECREASED MEMORY, LEFT SIDED FACIAL DROOP, DECREASED BILATERAL HAND FUNCTION (HE WAS ALREADY IMPAIRED MOSTLY TO HIS HANDS D/T CHARCOT HIPOLITO TOOTH SYNDROME) TO THE POINT THAT HE HAD EXTREME DIFFICULTY WITH FEEDING SELF BREAKFAST AND LUNCH. HE IS REQ. INCREASED ASSISTANCE OVERALL INCLUDING WITH TRANSFERS AND IS UNABLE TO MAINTAIN NWB STATUS OF LEFT FOOT S/P SURGICAL INTERVENTION. OTR DISCUSSED CASE WITH ENGINEERING PROGRAMMER, TENISHA, AND HAS CONCERNS WITH ANIRUDH BEING ABLE TO RETURN TO HIS HOME INDEPENDENTLY AT [facility] HE HAS LIMITED CAREGIVING ASSISTANCE FROM OTHER FAMILY. HE MAY BENEFIT FROM SHORT TERM SENIOR LIVING FACILITY STAY TO ALLOW HIM TO PROGRESS WITH HIS OVERALL STRENGTH AND ALLOW LEFT LE TO HEAL BY MAINTAINING NWB STATUS. Initialized on 03/10/23 14:51 - END OF NOTE Assessment/Plan (1) Diabetic foot ulcer associated with type 2 diabetes mellitus, with fat layer exposed Current Visit: Yes Status: Acute Code(s): E11.621 - TYPE 2 DIABETES MELLITUS WITH FOOT ULCER; L97.502 - NON-PRS CHRONIC ULCER OTH PRT UNSP FOOT W FAT LAYER EXPOSED (2) Venous insufficiency (chronic) (peripheral) Current Visit: Yes Status: Acute (3) DM2 (diabetes mellitus, type 2) Current Visit: No Status: Chronic Qualifiers: Diabetes mellitus fci insulin use: with fci use (4) HTN (hypertension) Current Visit: No Status: Chronic Code(s): I10 - ESSENTIAL (PRIMARY) HYPERTENSION
--- NOTE | 2023-03-11 13:13 | PCM.NOTE ---
Date and Time: 03/11/23 1301 Subjective Assessment: Morbidly obese patient of Dr Burns with HTN,HLD, IDDM2,[place] Tooth dz affecting hands and CRF was admitted for treatment of cellulitis LLE and diabetic ulcer distal fibula area /failed outpatient treatment probable osteomyelitis (debridement cultures from this admit pending - Dr Duong Kickboxing Instructor states resistant Ecoli has been present from recent outpatient culture.) Patient began having mental status changes yesterday and garbled speech this morning and is letharggic . AM labs - Potassium = 6 , BUN/PRESCHOOL EDUCATION DIRECTOR= 66/2.5 . Patient received Kacylate O2 sats dropped while on O2 4L requiring Bipap. Teleneuro consult had been ordered and I spoke to him(Dr Cedric Victoria) who feels due neuro changes are due to metabolic encephalopathy-see full consult. See full lab panel. Edema - worsening and bandages now tight. Dr Duong approved removal nor wraps but keep LLE wound covered. Higher level of care needed and Transfer accepted to [facility] by Hospitalist Dr Saenz with Nephrology to consult. I spoke to Dr Mills,covering for Dr Perez. Dr Duong is aware and states he will notify Kickboxing Instructor Laith Caldwell to follow at [facility]. Objective Exam General Appearance: lethargy, other (does no appear to be in pain) Neurologic Exam: other (is on Bipap does not answer or follow commands) Cardiovascular Exam: regular rate/rhythm (distant heart sounds) Gastrointestinal/Abdomen Exam: normal bowel sounds, other (protruberant) Extremity Exam: other (BLE pitting edema 2-3+/4with tight wraps BLE foot to knee) OBJECTIVE DATA Vital Signs: Vital Signs - 24 hr Temp Pulse Resp BP Pulse Ox 03/11/23 11:58 98.8 F 78 18 123/56 89 L 03/11/23 07:35 98.5 F 71 17 107/65 67 L 03/11/23 04:00 97.7 F 80 19 119/58 93 L 03/10/23 23:51 98.0 F 82 19 145/66 95 03/10/23 19:51 98.6 F 86 19 154/65 98 03/10/23 19:15 98 03/10/23 16:00 98 F 83 16 138/65 90 L Pain Assessment - Last Documented Pain Intensity 0 Pain Scale Used 0-10 Pain Scale Intake and Output: Intake & Output 03/09/23 03/10/23 03/11/23 03/12/23 11:59 11:59 11:59 11:59 Intake Total 2280 1420 1560 Balance 2280 1420 1560 Weight 132.1 kg 132.1 kg Lab Results: Lab Results-Last 24 Hours 03/10/23 03/10/23 03/10/23 Range/Units 08:00 14:45 16:31 WBC (4.0-10.5) x10^3/uL RBC (4.1-5.6) x10^6/uL Hgb (12.5-18.0) g/dL Hct (42-50) % MCV (78-100) fL MCH (26-32) pg MCHC (32-36) g/dL RDW (11.5-14.0) % Plt Count (150-450) x10^3/uL MPV (7.5-11.0) fL Puncture Site pCO2 (35-45) mmHg pO2 (75-100) mmHg Base Excess (-2.0-2.0) O2 Saturation (94-100) g/dF ABG pH (7.35-7.45) ABG HCO3 (22-28) ABG O2 Sat (Measured) (95-100) % Remy Test A-a Gradient a/A Ratio Hemoglobin Carboxyhemoglobin (0.0-6.9) % THgb Methemoglobin (1.4-1.5) % Temperature C POC O2 Flow Rate % Vent Mode Inspiratory BiPAP Expiratory BiPAP Sodium (137-145) mmol/L Potassium (3.5-5.1) mmol/L Chloride (98-107) mmol/L Carbon Dioxide (22-30) mmol/L Anion Gap (5-15) MEQ/L BUN (9-20) mg/dL Creatinine 2.25 H (0.66-1.25) mg/dL Estimated GFR 31.6 ML/MIN Glucose (74-106) mg/dL POC Glucometer (74 to 106) mg/dL Calcium (8.4-10.2) mg/dL Magnesium (1.6-2.3) mg/dL Total Bilirubin (0.2-1.3) mg/dL AST (17-59) U/L ALT (0-50) U/L Alkaline Phosphatase (38-126) U/L NT-Pro-B Natriuret Pep (<300) pg/mL Serum Total Protein (6.3-8.2) g/dL Albumin (3.5-5.0) g/dL Urine Color Yellow (Yellow) Urine Appearance Clear (Clear) Urine pH 5.0 (4.6-8.0) Ur Specific [place] 1.010 (1.005-1.030) Urine Protein 30 (Negative) Urine Glucose (UA) 100 A (Negative) mg/dL Urine Ketones Negative (Negative) Urine Blood NHT (Negative) Urine Nitrite Negative (Negative) Urine Bilirubin Negative (Negative) Urine Urobilinogen 0.2 (0.2) mg/dL Ur Leukocyte Esterase Small A (Negative) U Hyaline Cast (Auto) 3-5 A (0-2) /LPF Urine Microscopic RBC 3-5 (0-5) /HPF Urine Microscopic WBC 6-10 A (0-5) /HPF Ur Epithelial Cells None Seen (None Seen) /HPF Urine Bacteria None Seen (None Seen) /HPF Urine Culture Reflexed YES (NO) Random Tobramycin SEE SEPARATE REPORT 03/10/23 03/10/23 03/10/23 Range/Units 16:39 17:18 20:45 WBC (4.0-10.5) x10^3/uL RBC (4.1-5.6) x10^6/uL Hgb (12.5-18.0) g/dL Hct (42-50) % MCV (78-100) fL MCH (26-32) pg MCHC (32-36) g/dL RDW (11.5-14.0) % Plt Count (150-450) x10^3/uL MPV (7.5-11.0) fL Puncture Site pCO2 (35-45) mmHg pO2 (75-100) mmHg Base Excess (-2.0-2.0) O2 Saturation (94-100) g/dF ABG pH (7.35-7.45) ABG HCO3 (22-28) ABG O2 Sat (Measured) (95-100) % Remy Test A-a Gradient a/A Ratio Hemoglobin Carboxyhemoglobin (0.0-6.9) % THgb Methemoglobin (1.4-1.5) % Temperature C POC O2 Flow Rate % Vent Mode Inspiratory BiPAP Expiratory BiPAP Sodium (137-145) mmol/L Potassium (3.5-5.1) mmol/L Chloride (98-107) mmol/L Carbon Dioxide (22-30) mmol/L Anion Gap (5-15) MEQ/L BUN (9-20) mg/dL Creatinine (0.66-1.25) mg/dL Estimated GFR ML/MIN Glucose (74-106) mg/dL POC Glucometer 322 H 288 H 362 H (74 to 106) mg/dL Calcium (8.4-10.2) mg/dL Magnesium (1.6-2.3) mg/dL Total Bilirubin (0.2-1.3) mg/dL AST (17-59) U/L ALT (0-50) U/L Alkaline Phosphatase (38-126) U/L NT-Pro-B Natriuret Pep (<300) pg/mL Serum Total Protein (6.3-8.2) g/dL Albumin (3.5-5.0) g/dL Urine Color (Yellow) Urine Appearance (Clear) Urine pH (4.6-8.0) Ur Specific [place] (1.005-1.030) Urine Protein (Negative) Urine Glucose (UA) (Negative) mg/dL Urine Ketones (Negative) Urine Blood (Negative) Urine Nitrite (Negative) Urine Bilirubin (Negative) Urine Urobilinogen (0.2) mg/dL Ur Leukocyte Esterase (Negative) U Hyaline Cast (Auto) (0-2) /LPF Urine Microscopic RBC (0-5) /HPF Urine Microscopic WBC (0-5) /HPF Ur Epithelial Cells (None Seen) /HPF Urine Bacteria (None Seen) /HPF Urine Culture Reflexed (NO) Random Tobramycin 03/11/23 03/11/23 03/11/23 Range/Units 05:45 06:19 06:19 WBC 13.2 H (4.0-10.5) x10^3/uL RBC 2.89 L (4.1-5.6) x10^6/uL Hgb 8.0 L (12.5-18.0) g/dL Hct 27.1 L (42-50) % MCV 93.8 (78-100) fL MCH 27.7 (26-32) pg MCHC 29.5 L (32-36) g/dL RDW 16.2 H (11.5-14.0) % Plt Count 307 (150-450) x10^3/uL MPV 9.6 (7.5-11.0) fL Puncture Site pCO2 (35-45) mmHg pO2 (75-100) mmHg Base Excess (-2.0-2.0) O2 Saturation (94-100) g/dF ABG pH (7.35-7.45) ABG HCO3 (22-28) ABG O2 Sat (Measured) (95-100) % Remy Test A-a Gradient a/A Ratio Hemoglobin Carboxyhemoglobin (0.0-6.9) % THgb Methemoglobin (1.4-1.5) % Temperature C POC O2 Flow Rate % Vent Mode Inspiratory BiPAP Expiratory BiPAP Sodium 137 (137-145) mmol/L Potassium 5.6 H (3.5-5.1) mmol/L Chloride 96 L (98-107) mmol/L Carbon Dioxide 31 H (22-30) mmol/L Anion Gap 16.0 H (5-15) MEQ/L BUN 66 H (9-20) mg/dL Creatinine 2.52 H (0.66-1.25) mg/dL Estimated GFR 27.7 ML/MIN Glucose 221 H (74-106) mg/dL POC Glucometer (74 to 106) mg/dL Calcium 7.7 L (8.4-10.2) mg/dL Magnesium 1.7 (1.6-2.3) mg/dL Total Bilirubin 0.30 (0.2-1.3) mg/dL AST 13 L (17-59) U/L ALT 10 (0-50) U/L Alkaline Phosphatase 126 (38-126) U/L NT-Pro-B Natriuret Pep 1630 (<300) pg/mL Serum Total Protein 7.3 (6.3-8.2) g/dL Albumin 3.4 L (3.5-5.0) g/dL Urine Color (Yellow) Urine Appearance (Clear) Urine pH (4.6-8.0) Ur Specific [place] (1.005-1.030) Urine Protein (Negative) Urine Glucose (UA) (Negative) mg/dL Urine Ketones (Negative) Urine Blood (Negative) Urine Nitrite (Negative) Urine Bilirubin (Negative) Urine Urobilinogen (0.2) mg/dL Ur Leukocyte Esterase (Negative) U Hyaline Cast (Auto) (0-2) /LPF Urine Microscopic RBC (0-5) /HPF Urine Microscopic WBC (0-5) /HPF Ur Epithelial Cells (None Seen) /HPF Urine Bacteria (None Seen) /HPF Urine Culture Reflexed (NO) Random Tobramycin 03/11/23 03/11/23 03/11/23 Range/Units 07:16 08:18 10:30 WBC (4.0-10.5) x10^3/uL RBC (4.1-5.6) x10^6/uL Hgb (12.5-18.0) g/dL Hct (42-50) % MCV (78-100) fL MCH (26-32) pg MCHC (32-36) g/dL RDW (11.5-14.0) % Plt Count (150-450) x10^3/uL MPV (7.5-11.0) fL Puncture Site Pending LEFT BRACHIAL pCO2 60 H* 58 H (35-45) mmHg pO2 68 L 83 (75-100) mmHg Base Excess -1.3 0.1 (-2.0-2.0) O2 Saturation 92.7 L 95.0 (94-100) g/dF ABG pH 7.25 L* 7.28 L (7.35-7.45) ABG HCO3 26.3 27.3 (22-28) ABG O2 Sat (Measured) 95.9 97.5 (95-100) % Remy Test Pending NOT APPLICABLE A-a Gradient 356 201 a/A Ratio 0.16 0.29 Hemoglobin 8.7 8.7 Carboxyhemoglobin 2.4 1.4 (0.0-6.9) % THgb Methemoglobin 0.9 L 1.2 L (1.4-1.5) % Temperature 37.0 37.0 C POC O2 Flow Rate 70 50 % Vent Mode BiPAP Inspiratory BiPAP 14 Expiratory BiPAP 6 Sodium (137-145) mmol/L Potassium 6.3 H* 6.1 H* (3.5-5.1) mmol/L Chloride (98-107) mmol/L Carbon Dioxide (22-30) mmol/L Anion Gap (5-15) MEQ/L BUN (9-20) mg/dL Creatinine (0.66-1.25) mg/dL Estimated GFR ML/MIN Glucose (74-106) mg/dL POC Glucometer 229 H (74 to 106) mg/dL Calcium (8.4-10.2) mg/dL Magnesium (1.6-2.3) mg/dL Total Bilirubin (0.2-1.3) mg/dL AST (17-59) U/L ALT (0-50) U/L Alkaline Phosphatase (38-126) U/L NT-Pro-B Natriuret Pep (<300) pg/mL Serum Total Protein (6.3-8.2) g/dL Albumin (3.5-5.0) g/dL Urine Color (Yellow) Urine Appearance (Clear) Urine pH (4.6-8.0) Ur Specific [place] (1.005-1.030) Urine Protein (Negative) Urine Glucose (UA) (Negative) mg/dL Urine Ketones (Negative) Urine Blood (Negative) Urine Nitrite (Negative) Urine Bilirubin (Negative) Urine Urobilinogen (0.2) mg/dL Ur Leukocyte Esterase (Negative) U Hyaline Cast (Auto) (0-2) /LPF Urine Microscopic RBC (0-5) /HPF Urine Microscopic WBC (0-5) /HPF Ur Epithelial Cells (None Seen) /HPF Urine Bacteria (None Seen) /HPF Urine Culture Reflexed (NO) Random Tobramycin 03/11/23 Range/Units 11:40 WBC (4.0-10.5) x10^3/uL RBC (4.1-5.6) x10^6/uL Hgb (12.5-18.0) g/dL Hct (42-50) % MCV (78-100) fL MCH (26-32) pg MCHC (32-36) g/dL RDW (11.5-14.0) % Plt Count (150-450) x10^3/uL MPV (7.5-11.0) fL Puncture Site pCO2 (35-45) mmHg pO2 (75-100) mmHg Base Excess (-2.0-2.0) O2 Saturation (94-100) g/dF ABG pH (7.35-7.45) ABG HCO3 (22-28) ABG O2 Sat (Measured) (95-100) % Remy Test A-a Gradient a/A Ratio Hemoglobin Carboxyhemoglobin (0.0-6.9) % THgb Methemoglobin (1.4-1.5) % Temperature C POC O2 Flow Rate % Vent Mode Inspiratory BiPAP Expiratory BiPAP Sodium (137-145) mmol/L Potassium (3.5-5.1) mmol/L Chloride (98-107) mmol/L Carbon Dioxide (22-30) mmol/L Anion Gap (5-15) MEQ/L BUN (9-20) mg/dL Creatinine (0.66-1.25) mg/dL Estimated GFR ML/MIN Glucose (74-106) mg/dL POC Glucometer 286 H (74 to 106) mg/dL Calcium (8.4-10.2) mg/dL Magnesium (1.6-2.3) mg/dL Total Bilirubin (0.2-1.3) mg/dL AST (17-59) U/L ALT (0-50) U/L Alkaline Phosphatase (38-126) U/L NT-Pro-B Natriuret Pep (<300) pg/mL Serum Total Protein (6.3-8.2) g/dL Albumin (3.5-5.0) g/dL Urine Color (Yellow) Urine Appearance (Clear) Urine pH (4.6-8.0) Ur Specific [place] (1.005-1.030) Urine Protein (Negative) Urine Glucose (UA) (Negative) mg/dL Urine Ketones (Negative) Urine Blood (Negative) Urine Nitrite (Negative) Urine Bilirubin (Negative) Urine Urobilinogen (0.2) mg/dL Ur Leukocyte Esterase (Negative) U Hyaline Cast (Auto) (0-2) /LPF Urine Microscopic RBC (0-5) /HPF Urine Microscopic WBC (0-5) /HPF Ur Epithelial Cells (None Seen) /HPF Urine Bacteria (None Seen) /HPF Urine Culture Reflexed (NO) Random Tobramycin Radiology Exams: Radiology Procedures Category Date Time Status CHEST 1 VIEW (PORTABLE) Stat Exams 03/10/23 07:18 Completed CHEST WITHOUT CONTRAST [CT] Stat Exams 03/11/23 11:22 Completed HEAD WITHOUT CONTRAST [CT] Stat Exams 03/10/23 08:27 Completed MRA BRAIN WITHOUT CONTRAST [MRI] Routine Exams 03/11/23 12:15 Ordered MRA NECK WITHOUT CONTRAST [MRI] Routine Exams 03/11/23 12:15 Ordered Multi-Disciplinary Progress Notes: Multi-Disciplinary Progress Notes 03/10/23 16:32 Case Management Note by Tenisha Mcpherson S/W PATIENT ABOUT PLANS FOR DC. PATIENT WILL LIKELY BE HERE THRU THE WEEKEND [facility] NEEDS PATIENT MORE MEDICALLY STABLE BEFORE HE TAKES PATIENT BACK TO [place] FOR FINAL PROCEDURE BEFORE DC HOME. HE WOULD LIKE TO CONTINUE TO PLAN TO RETURN HOME WITH HHC AND HOME INFUSIONS HOWEVER PATIENT HAS HAD NEW ONSET STROKE LIKE SYMPTOMS AND WAS UNABLE TO FEED HIMSELF THIS AM. HE REPORTS IF THIS DOES NOT IMPROVE BY TIME OF DC HE MAY NEED TO CONSIDER A REHAB STAY. HE REPORTS HE WOULD WANT THIS TIME AT [facility]. IF HE DOES GO HOME WE WILL NEED TO GET NEW IV ANTIBIOTIC ORDERS SENT TO [facility] [place] AND COORDINATE THAT WITH PATIENT'S HHC. PATIENT ALREADY HAS PICC LINE IN PLACE. Initialized on 03/10/23 16:32 - END OF NOTE 03/10/23 15:47 Pharmacy Note by Kojo Romeo Changing Tobramycin to Gentamicin to watch levels closer. We are able to do Gent levels in house. Cultures are sensitive to Gent as well. Initialized on 03/10/23 15:47 - END OF NOTE 03/10/23 14:51 Occupational Therapy Note by Ricky(L#[id number]),Danielle OLEARY WAS SEEN THIS PM WHILE SITTING UP IN POWER WHEELCHAIR. HIS SISTER WAS ALSO PRESENT. 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 HE IS REQ. INCREASED ASSISTANCE OVERALL INCLUDING WITH TRANSFERS AND IS UNABLE TO MAINTAIN NWB STATUS OF LEFT FOOT S/P SURGICAL INTERVENTION. OTR DISCUSSED CASE WITH PASTOR[employer]ISTRIES PROFESSOR, TENISHA, AND HAS CONCERNS WITH ANIRUDH BEING ABLE TO RETURN TO HIS HOME INDEPENDENTLY AT [facility] HE HAS LIMITED CAREGIVING ASSISTANCE FROM OTHER FAMILY. HE MAY BENEFIT FROM SHORT TERM LONG-TERM FACILITY STAY TO ALLOW HIM TO PROGRESS WITH HIS OVERALL STRENGTH AND ALLOW LEFT LE TO HEAL BY MAINTAINING NWB STATUS. Initialized on 03/10/23 14:51 - END OF NOTE Assessment/Plan (1) ERYN (acute kidney injury) Current Visit: Yes Status: Acute Assessment & Plan: potassium = 6 , BUN/PRESCHOOL EDUCATION DIRECTOR= 66 /2.52. Has been under Dr Chris gary for CRF Code(s): N17.9 - ACUTE KIDNEY FAILURE, UNSPECIFIED (2) Change in mental status Current Visit: Yes Status: Acute Assessment & Plan: see Neuro consult Metabolic encephalopathy Code(s): R41.82 - ALTERED MENTAL STATUS, UNSPECIFIED (3) Hypoxia Current Visit: No Status: Acute Assessment & Plan: acute respiratory failure-increased from 4L/NC to bipap Code(s): R09.02 - HYPOXEMIA (4) Diabetic foot ulcer associated with type 2 diabetes mellitus, with fat layer exposed Current Visit: Yes Status: Acute Assessment & Plan: debridment upon admission by Dr Duong Code(s): E11.621 - TYPE 2 DIABETES MELLITUS WITH FOOT ULCER; L97.502 - NON-PRS CHRONIC ULCER OTH PRT UNSP FOOT W FAT LAYER EXPOSED (5) Venous insufficiency (chronic) (peripheral) Current Visit: Yes Status: Chronic (6) DM2 (diabetes mellitus, type 2) Current Visit: No Status: Chronic Qualifiers: Diabetes mellitus longterm insulin use: with longterm use (7) HTN (hypertension) Current Visit: No Status: Chronic Code(s): I10 - ESSENTIAL (PRIMARY) HYPERTENSION
[2023-03-11] MEDS: Furosemide 100mg/10 ml Vial IV SCH ×2 (13:36→17:50)
[2023-03-11] MEDS: HUMALOG SQ PRN (13:37)
[2023-03-11] MEDS: Aldactone 25 MG PO SCH (15:13)
[2023-03-11] MEDS ORDERED: ENOXAPARIN SODIUM SQ ONE ×2 (17:12→17:14)
[2023-03-11 17:17] VITALS: BP 107/65; PULSE 81; O2SAT 97
--- NOTE | 2023-03-11 17:20 | PCM.DS ---
Discharge Summary Date of Admission: 03/06/23 10:50 Admitting Physician: MARY JO TOMAS DO Consults: Consults on Case 03/06/23 10:50 Consult Podiatry ROUTINE 03/10/23 08:29 Consult Neurology ROUTINE Primary Care Provider: Hastify Allergies Allergies sulfamethoxazole [From Bactrim] Allergy (Unknown, Verified 03/06/23 11:32) trimethoprim [From Bactrim] Allergy (Unknown, Verified 03/06/23 11:32) Hospital Summary - Hospital Course Hospital Course: see todays progress note and Discharge Order notes - Vitals & Intake/Output Vital Signs: Vital Signs Temperature 97.1 F 03/11/23 16:00 Pulse Rate 81 03/11/23 16:00 Respiratory Rate 21 03/11/23 16:00 Blood Pressure 107/65 03/11/23 16:00 O2 Sat by Pulse Oximetry 97 03/11/23 16:00 Intake & Output: Intake & Output 03/09/23 03/10/23 03/11/23 03/12/23 11:59 11:59 11:59 11:59 Intake Total 2280 1420 1560 Output Total 3300 Balance 2280 1420 1560 -3300 Weight 132.1 kg 132.1 kg - Lab Result Diagrams: 03/11/23 06:19 03/11/23 06:19 Lab Results-Last 24 Hrs: Lab Results-Last 24 Hours 03/10/23 03/10/23 03/10/23 Range/Units 16:31 17:18 20:45 WBC (4.0-10.5) x10^3/uL RBC (4.1-5.6) x10^6/uL Hgb (12.5-18.0) g/dL Hct (42-50) % MCV (78-100) fL MCH (26-32) pg MCHC (32-36) g/dL RDW (11.5-14.0) % Plt Count (150-450) x10^3/uL MPV (7.5-11.0) fL Puncture Site pCO2 (35-45) mmHg pO2 (75-100) mmHg Base Excess (-2.0-2.0) O2 Saturation (94-100) g/dF ABG pH (7.35-7.45) ABG HCO3 (22-28) ABG O2 Sat (Measured) (95-100) % Remy Test A-a Gradient a/A Ratio Hemoglobin Carboxyhemoglobin (0.0-6.9) % THgb Methemoglobin (1.4-1.5) % Temperature C POC O2 Flow Rate % Vent Mode Inspiratory BiPAP Expiratory BiPAP Sodium (137-145) mmol/L Potassium (3.5-5.1) mmol/L Chloride (98-107) mmol/L Carbon Dioxide (22-30) mmol/L Anion Gap (5-15) MEQ/L BUN (9-20) mg/dL Creatinine (0.66-1.25) mg/dL Estimated GFR ML/MIN Glucose (74-106) mg/dL POC Glucometer 288 H 362 H (74 to 106) mg/dL Calcium (8.4-10.2) mg/dL Magnesium (1.6-2.3) mg/dL Total Bilirubin (0.2-1.3) mg/dL AST (17-59) U/L ALT (0-50) U/L Alkaline Phosphatase (38-126) U/L NT-Pro-B Natriuret Pep (<300) pg/mL Serum Total Protein (6.3-8.2) g/dL Albumin (3.5-5.0) g/dL Urine Color Yellow (Yellow) Urine Appearance Clear (Clear) Urine pH 5.0 (4.6-8.0) Ur Specific [place] 1.010 (1.005-1.030) Urine Protein 30 (Negative) Urine Glucose (UA) 100 A (Negative) mg/dL Urine Ketones Negative (Negative) Urine Blood NHT (Negative) Urine Nitrite Negative (Negative) Urine Bilirubin Negative (Negative) Urine Urobilinogen 0.2 (0.2) mg/dL Ur Leukocyte Esterase Small A (Negative) U Hyaline Cast (Auto) 3-5 A (0-2) /LPF Urine Microscopic RBC 3-5 (0-5) /HPF Urine Microscopic WBC 6-10 A (0-5) /HPF Ur Epithelial Cells None Seen (None Seen) /HPF Urine Bacteria None Seen (None Seen) /HPF Urine Culture Reflexed YES (NO) 03/11/23 03/11/23 03/11/23 Range/Units 05:45 06:19 06:19 WBC 13.2 H (4.0-10.5) x10^3/uL RBC 2.89 L (4.1-5.6) x10^6/uL Hgb 8.0 L (12.5-18.0) g/dL Hct 27.1 L (42-50) % MCV 93.8 (78-100) fL MCH 27.7 (26-32) pg MCHC 29.5 L (32-36) g/dL RDW 16.2 H (11.5-14.0) % Plt Count 307 (150-450) x10^3/uL MPV 9.6 (7.5-11.0) fL Puncture Site pCO2 (35-45) mmHg pO2 (75-100) mmHg Base Excess (-2.0-2.0) O2 Saturation (94-100) g/dF ABG pH (7.35-7.45) ABG HCO3 (22-28) ABG O2 Sat (Measured) (95-100) % Remy Test A-a Gradient a/A Ratio Hemoglobin Carboxyhemoglobin (0.0-6.9) % THgb Methemoglobin (1.4-1.5) % Temperature C POC O2 Flow Rate % Vent Mode Inspiratory BiPAP Expiratory BiPAP Sodium 137 (137-145) mmol/L Potassium 5.6 H (3.5-5.1) mmol/L Chloride 96 L (98-107) mmol/L Carbon Dioxide 31 H (22-30) mmol/L Anion Gap 16.0 H (5-15) MEQ/L BUN 66 H (9-20) mg/dL Creatinine 2.52 H (0.66-1.25) mg/dL Estimated GFR 27.7 ML/MIN Glucose 221 H (74-106) mg/dL POC Glucometer (74 to 106) mg/dL Calcium 7.7 L (8.4-10.2) mg/dL Magnesium 1.7 (1.6-2.3) mg/dL Total Bilirubin 0.30 (0.2-1.3) mg/dL AST 13 L (17-59) U/L ALT 10 (0-50) U/L Alkaline Phosphatase 126 (38-126) U/L NT-Pro-B Natriuret Pep 1630 (<300) pg/mL Serum Total Protein 7.3 (6.3-8.2) g/dL Albumin 3.4 L (3.5-5.0) g/dL Urine Color (Yellow) Urine Appearance (Clear) Urine pH (4.6-8.0) Ur Specific [place] (1.005-1.030) Urine Protein (Negative) Urine Glucose (UA) (Negative) mg/dL Urine Ketones (Negative) Urine Blood (Negative) Urine Nitrite (Negative) Urine Bilirubin (Negative) Urine Urobilinogen (0.2) mg/dL Ur Leukocyte Esterase (Negative) U Hyaline Cast (Auto) (0-2) /LPF Urine Microscopic RBC (0-5) /HPF Urine Microscopic WBC (0-5) /HPF Ur Epithelial Cells (None Seen) /HPF Urine Bacteria (None Seen) /HPF Urine Culture Reflexed (NO) 03/11/23 03/11/23 03/11/23 Range/Units 07:16 08:18 10:30 WBC (4.0-10.5) x10^3/uL RBC (4.1-5.6) x10^6/uL Hgb (12.5-18.0) g/dL Hct (42-50) % MCV (78-100) fL MCH (26-32) pg MCHC (32-36) g/dL RDW (11.5-14.0) % Plt Count (150-450) x10^3/uL MPV (7.5-11.0) fL Puncture Site Pending LEFT BRACHIAL pCO2 60 H* 58 H (35-45) mmHg pO2 68 L 83 (75-100) mmHg Base Excess -1.3 0.1 (-2.0-2.0) O2 Saturation 92.7 L 95.0 (94-100) g/dF ABG pH 7.25 L* 7.28 L (7.35-7.45) ABG HCO3 26.3 27.3 (22-28) ABG O2 Sat (Measured) 95.9 97.5 (95-100) % Remy Test Pending NOT APPLICABLE A-a Gradient 356 201 a/A Ratio 0.16 0.29 Hemoglobin 8.7 8.7 Carboxyhemoglobin 2.4 1.4 (0.0-6.9) % THgb Methemoglobin 0.9 L 1.2 L (1.4-1.5) % Temperature 37.0 37.0 C POC O2 Flow Rate 70 50 % Vent Mode BiPAP Inspiratory BiPAP 14 Expiratory BiPAP 6 Sodium (137-145) mmol/L Potassium 6.3 H* 6.1 H* (3.5-5.1) mmol/L Chloride (98-107) mmol/L Carbon Dioxide (22-30) mmol/L Anion Gap (5-15) MEQ/L BUN (9-20) mg/dL Creatinine (0.66-1.25) mg/dL Estimated GFR ML/MIN Glucose (74-106) mg/dL POC Glucometer 229 H (74 to 106) mg/dL Calcium (8.4-10.2) mg/dL Magnesium (1.6-2.3) mg/dL Total Bilirubin (0.2-1.3) mg/dL AST (17-59) U/L ALT (0-50) U/L Alkaline Phosphatase (38-126) U/L NT-Pro-B Natriuret Pep (<300) pg/mL Serum Total Protein (6.3-8.2) g/dL Albumin (3.5-5.0) g/dL Urine Color (Yellow) Urine Appearance (Clear) Urine pH (4.6-8.0) Ur Specific [place] (1.005-1.030) Urine Protein (Negative) Urine Glucose (UA) (Negative) mg/dL Urine Ketones (Negative) Urine Blood (Negative) Urine Nitrite (Negative) Urine Bilirubin (Negative) Urine Urobilinogen (0.2) mg/dL Ur Leukocyte Esterase (Negative) U Hyaline Cast (Auto) (0-2) /LPF Urine Microscopic RBC (0-5) /HPF Urine Microscopic WBC (0-5) /HPF Ur Epithelial Cells (None Seen) /HPF Urine Bacteria (None Seen) /HPF Urine Culture Reflexed (NO) 03/11/23 03/11/23 Range/Units 11:40 17:04 WBC (4.0-10.5) x10^3/uL RBC (4.1-5.6) x10^6/uL Hgb (12.5-18.0) g/dL Hct (42-50) % MCV (78-100) fL MCH (26-32) pg MCHC (32-36) g/dL RDW (11.5-14.0) % Plt Count (150-450) x10^3/uL MPV (7.5-11.0) fL Puncture Site pCO2 (35-45) mmHg pO2 (75-100) mmHg Base Excess (-2.0-2.0) O2 Saturation (94-100) g/dF ABG pH (7.35-7.45) ABG HCO3 (22-28) ABG O2 Sat (Measured) (95-100) % Remy Test A-a Gradient a/A Ratio Hemoglobin Carboxyhemoglobin (0.0-6.9) % THgb Methemoglobin (1.4-1.5) % Temperature C POC O2 Flow Rate % Vent Mode Inspiratory BiPAP Expiratory BiPAP Sodium (137-145) mmol/L Potassium (3.5-5.1) mmol/L Chloride (98-107) mmol/L Carbon Dioxide (22-30) mmol/L Anion Gap (5-15) MEQ/L BUN (9-20) mg/dL Creatinine (0.66-1.25) mg/dL Estimated GFR ML/MIN Glucose (74-106) mg/dL POC Glucometer 286 H 189 H (74 to 106) mg/dL Calcium (8.4-10.2) mg/dL Magnesium (1.6-2.3) mg/dL Total Bilirubin (0.2-1.3) mg/dL AST (17-59) U/L ALT (0-50) U/L Alkaline Phosphatase (38-126) U/L NT-Pro-B Natriuret Pep (<300) pg/mL Serum Total Protein (6.3-8.2) g/dL Albumin (3.5-5.0) g/dL Urine Color (Yellow) Urine Appearance (Clear) Urine pH (4.6-8.0) Ur Specific [place] (1.005-1.030) Urine Protein (Negative) Urine Glucose (UA) (Negative) mg/dL Urine Ketones (Negative) Urine Blood (Negative) Urine Nitrite (Negative) Urine Bilirubin (Negative) Urine Urobilinogen (0.2) mg/dL Ur Leukocyte Esterase (Negative) U Hyaline Cast (Auto) (0-2) /LPF Urine Microscopic RBC (0-5) /HPF Urine Microscopic WBC (0-5) /HPF Ur Epithelial Cells (None Seen) /HPF Urine Bacteria (None Seen) /HPF Urine Culture Reflexed (NO) Micro Results-Entire Visit: Microbiology 03/06/23 17:19 Aerobic Culture Result 1 - Final Heel - Right Not Reportable Aerobic Culture Result 2 - Final Not Reportable Aerobic Culture Result 3 - Final Not Reportable Aerobic Culture Result 4 - Final Not Reportable Aerobic Bacterial Sensitivity - Final Not Reportable Aerobic Organism ID Result 1 - Final Not Reportable 03/06/23 17:19 Aerobic Culture Result 1 - Final Ankle - Not Known Not Reportable Aerobic Culture Result 2 - Final Not Reportable Aerobic Culture Result 3 - Final Not Reportable Aerobic Culture Result 4 - Final Not Reportable Aerobic Bacterial Sensitivity - Final Not Reportable Aerobic Organism ID Result 1 - Final Not Reportable 03/06/23 17:19 Aerobic Culture Result 1 - Final Ankle - Right Not Reportable Aerobic Culture Result 2 - Final Not Reportable Aerobic Culture Result 3 - Final Not Reportable Aerobic Culture Result 4 - Final Not Reportable Aerobic Bacterial Sensitivity - Final Not Reportable Aerobic Organism ID Result 1 - Final Not Reportable Accuchecks Date 03/11/23 Date 03/11/23 Date 03/11/23 Date 03/10/23 Time 17:16 Time 11:58 Time 07:33 Time 20:45 - Radiology Exams Ordered Rad Exams-Entire Visit: Radiology Procedures Category Date Time Status CHEST 1 VIEW (PORTABLE) Stat Exams 03/10/23 07:18 Completed CHEST WITHOUT CONTRAST [CT] Stat Exams 03/11/23 11:22 Completed HEAD WITHOUT CONTRAST [CT] Stat Exams 03/10/23 08:27 Completed MRA BRAIN WITHOUT CONTRAST [MRI] Routine Exams 03/11/23 12:15 Ordered MRA NECK WITHOUT CONTRAST [MRI] Routine Exams 03/11/23 12:15 Ordered - Procedures and Test Procedures and Tests throughout Hospitalization: Therapy Orders & Screens 03/06/23 11:45 OT Eval and Treat (MD Order) ROUTINE Comment: Physician Instructions: Reason For Exam: OSTEOMYELITIS 03/06/23 21:03 Oxygen NASAL CANNULA 2 lpm Comment: Diagnosis: OSTEOMYELITIS LEFT FOOT 03/11/23 08:16 BiPap/CPAP STAT Comment: Diagnosis: OSTEOMYELITIS LEFT FOOT 03/11/23 12:43 EKG STAT Comment: Diagnosis: OSTEOMYELITIS LEFT FOOT Final Diagnosis/Problem List - Final Discharge Diagnosis/Problem (1) ERYN (acute kidney injury) Current Visit: Yes Status: Acute Code(s): N17.9 - ACUTE KIDNEY FAILURE, UNSPECIFIED (2) Change in mental status Current Visit: Yes Status: Acute Code(s): R41.82 - ALTERED MENTAL STATUS, UNSPECIFIED (3) Hypoxia Current Visit: No Status: Acute Code(s): R09.02 - HYPOXEMIA (4) Diabetic foot ulcer associated with type 2 diabetes mellitus, with fat layer exposed Current Visit: Yes Status: Acute Code(s): E11.621 - TYPE 2 DIABETES MELLITUS WITH FOOT ULCER; L97.502 - NON-PRS CHRONIC ULCER OTH PRT UNSP FOOT W FAT LAYER EXPOSED (5) Venous insufficiency (chronic) (peripheral) Current Visit: Yes Status: Chronic (6) DM2 (diabetes mellitus, type 2) Current Visit: No Status: Chronic (7) HTN (hypertension) Current Visit: No Status: Chronic Code(s): I10 - ESSENTIAL (PRIMARY) HYPERTENSION - Discharge Disposition: DC TO [facility] Condition: Serious Prescriptions: No Action Fluticasone Propionate [24 Hour Allergy] 1 spray NS BIDPRN PRN PRN Reason: dryness Simvastatin 80 mg PO HS Furosemide 80 mg PO BID Metformin HCl [Glucophage] 1,000 mg PO BID glipiZIDE [Glipizide] 10 mg PO BID Verapamil HCl [Verapamil ER] 240 mg PO HS Sitagliptin Phosphate 50 MG [Januvia 50 MG] 50 mg PO HS Tamsulosin HCl 0.4 mg [Flomax 0.4 MG] 0.4 mg PO HS Spironolactone 25 mg [Aldactone 25 MG] 25 mg PO DAILY Insulin Aspart [NovoLOG Insulin] 35 units SQ ACHS PRN PRN Reason: HYPERGLYCEMIA Montelukast Sodium 10 mg [Singulair 10 MG] 10 mg PO DAILY Metoprolol Tartrate 25 mg [Lopressor 25MG Tab] 1 tab PO HS Sildenafil Citrate [Viagra] 100 mg PO DAILY PRN PRN Reason: SEXUAL ACTIVITY Semaglutide [Ozempic] 1 mg SQ WEEKLY Metolazone 2.5 mg [Zaroxolyn 2.5 MG] 2.5 mg PO DAILY Insulin Detemir [Levemir] 40 units SQ HS Hydrocodone/Acetaminophen [Hydrocodone-Acetamin 7.5-325] 0.5 tab PO HS PRN PRN Reason: Pain Additional Instructions: Accepted to [facility] (Dr Saenz) with Nephrology to consult(Dr Perez group)with Podiatry to follow (Dr Laith Caldwell-per Dr Duong) Follow up with: ROBINSON NGUYEN, DAVIDM [ACTIVE STAFF] - 1 Week MEL PEREZ [CONSULTING PHYSICIAN] - [facility] [Primary Care Provider] -
== END 2023-03-11 17:55 | disposition home or self-care (01) | DRG 699 ==
LOC: MED SURG 10:50 → OBSVTOIN 10:50 → MED SURG 10:51
PROVIDERS: ADMIT Family Medicine; ATTEND Family Medicine
PROC: 0J9P0ZZ Drainage of Left Lower Leg Subcutaneous Tissue and Fascia, Open Approach (ICD-10-PCS; principal; 2023-03-06)
PROC: 0J9R0ZZ Drainage of Left Foot Subcutaneous Tissue and Fascia, Open Approach (ICD-10-PCS; 2023-03-06)
PROC: 0J9R0ZZ Drainage of Left Foot Subcutaneous Tissue and Fascia, Open Approach (ICD-10-PCS; 2023-03-09)
PROC: 0J9P0ZZ Drainage of Left Lower Leg Subcutaneous Tissue and Fascia, Open Approach (ICD-10-PCS; 2023-03-09)
DX: E11.22 Type 2 diabetes mellitus with diabetic chronic kidney disease (principal); M86.9 Osteomyelitis, unspecified; I12.9 Hypertensive chronic kidney disease with stage 1 through stage 4 chronic kidney disease, or unspecified chronic kidney disease; N18.9 Chronic kidney disease, unspecified; R41.82 Altered mental status, unspecified; R09.02 Hypoxemia; E11.621 Type 2 diabetes mellitus with foot ulcer; L97.522 Non-pressure chronic ulcer of other part of left foot with fat layer exposed; I87.2 Venous insufficiency (chronic) (peripheral); G60.0 Hereditary motor and sensory neuropathy; E78.5 Hyperlipidemia, unspecified; E11.42 Type 2 diabetes mellitus with diabetic polyneuropathy; D64.9 Anemia, unspecified; R60.0 Localized edema; Z79.899 Other long term (current) drug therapy; Z20.828 Contact with and (suspected) exposure to other viral communicable diseases; Z91.148 Patient's other noncompliance with medication regimen for other reason
CPT/HCPCS: 0241U; 27607; 28003; 29580; 36415; 36430; 36600; 70450; 71045; 71250; 80053; 80200; 80202; 81001; 82375; 82565; 82803; 82947; 83036; 83540; 83605; 83735; 83880; 85014; 85018; 85025; 85027; 85379; 85652; 86140; 86850; 86900; 86901; 86922; 87070; 87086; 93005; 94002; 94760; 94762; 97165; 97530; 99024; G0328; P9016; 82274; 87046; 87075; 87116; 87206; A6260; J1580; J1642; J1650; J1817; J1940; J2001; J2543; J3260; A9270-GY; J3370